=== PATIENT | male | born 1960 | race Caucasian/White ===

== ENCOUNTER 2017-05-20 10:17 | Emergency (ER) | payer OTHER ==
[2017-05-20 10:59] LABS: Urine Blood TRACE (NEG); Urine Glucose NEGATIVE (NEG); Urine Protein NEGATIVE (NEG); Urine Specific Gravity 1.025 (1.005-1.030)
--- NOTE | 2017-05-20 12:03 | ER ---
Nurse's Notes [facility] Name: Pancho Fischer Age: 57 yrs Sex: Male : 1960 Arrival Date: 05/20/2017 Time: 10:18 Bed 24 Private MD: Hemanth Santizo E Diagnosis: Allergic rhinitis, unspecified Presentation: 05/20 10:23 Presenting complaint: Patient states: I have been feeling fatigued, having watery eyes la1 recently and also bloated. All my joints ache. Transition of care: patient was not received from another setting of care. Onset of symptoms was May 20, 2017. Care prior to arrival: None. 10:23 Method Of Arrival: Ambulatory la1 10:23 Acuity: MELI 3 la1 Historical: - Allergies: 10:24 No Known Allergies; la1 - PMHx: 10:24 Asthma; Diverticulitis; la1 - Immunization history:: Adult Immunizations up to date. - Social history:: Smoking status: Patient/guardian denies using tobacco. Screenin:42 Abuse screen: Denies threats or abuse. Denies injuries from another. Nutritional aj screening: No deficits noted. Tuberculosis screening: No symptoms or risk factors identified. Fall Risk None identified. Assessment: 10:42 General: Appears in no apparent distress. comfortable, Behavior is calm, cooperative, aj appropriate for age. Pain: Denies pain. Neuro: Level of Consciousness is awake, alert, obeys commands, Oriented to person, place, time, situation. Respiratory: Reports cough that is Airway is patent Respiratory effort is even, unlabored, Respiratory pattern is regular, symmetrical. EENT: Reports nasal congestion nasal discharge. Derm: Skin is intact, is healthy with good turgor, Skin is pink, warm \T\ dry. normal. 12:07 Reassessment: Patient appears in no apparent distress at this time. No changes from aj previously documented assessment. Patient and/or family updated on plan of care and expected duration. Pain level reassessed. Patient is alert, oriented x 3, equal unlabored respirations, skin warm/dry/pink. Patient denies pain at this time. Vital Signs: 10:24 BP 117 / 80; Pulse 92; Resp 16; Temp 98.6(TE); Pulse Ox 95% on R/A; Weight 81.65 kg; la1 Height 5 ft. 6 in. (167.64 cm) (R); 12:07 BP 116 / 81; Pulse 89; Resp 17; Pulse Ox 99% on R/A; aj 10:24 Body Mass Index 29.05 (81.65 kg, 167.64 cm) la1 ED Course: 10:18 Patient arrived in ED. rg4 10:18 Hemanth Santizo MD is Private Physician. rg4 10:24 Triage completed. la1 10:24 Arm band placed on left wrist. la1 10:34 Karen Poole F[facility]-C [facility]. snw 10:34 William De Paz MD is Attending Physician. snw 10:35 Love Mclean, RN is Primary Nurse. aj 10:42 Patient has correct armband on for positive identification. aj 11:39 Throat Culture Sent. ms 12:03 Hemanth Santizo MD is Referral Physician. snw 12:07 No provider procedures requiring assistance completed. Patient did not have IV access aj during this emergency room visit. Administered Medications: No medications were administered Outcome: 12:03 Discharge ordered by . snw 12:07 Discharged to home ambulatory. aj 12:07 Condition: good 12:07 Discharge instructions given to patient, Instructed on discharge instructions, follow up and referral plans. medication usage, Demonstrated understanding of instructions, follow-up care, medications, Prescriptions given X 1. 12:08 Patient left the ED. aj Signatures: Love Mclean, RN Karen Bell FNP-C FNP-CsnSandra Moyer ms Vinod Flannery RN RN la1 Garcia, Rubi rg4
--- NOTE | 2017-05-20 12:03 | EDPHYS ---
Physician Documentation [facility] Name: Pancho Fischer Age: 57 yrs Sex: Male : 1960 Arrival Date: 05/20/2017 Time: 10:18 Bed 24 Private MD: Hemanth Santizo E ED Physician William De Paz HPI: 05/20 10:51 This 57 yrs old Male presents to ER via Ambulatory with complaints of snw Weakness. 10:51 The patient presents to the emergency department with malaise and fatigue. Onset: The snw symptoms/episode began/occurred gradually, 1 week(s) ago, and became persistent. Context: occurred at home, occurred while the patient was unknown. Associated signs and symptoms: Pertinent positives: allergies. Severity of symptoms: At their worst the symptoms were moderate. Patient's baseline: Neuro: alert and fully oriented, Motor: no deficits, Ambulation: walks without assistance, Speech: normal. Current symptoms: Currently, the patient is not experiencing any symptoms. The patient has experienced similar episodes in the past, had the flu twice last year and feels the same this week. The patient has not recently seen a physician, Dr. Santizo, pt currently out of [facility] and has been substituting Symbicort. Historical: - Allergies: 10:24 No Known Allergies; la1 - PMHx: 10:24 Asthma; Diverticulitis; la1 - Immunization history:: Adult Immunizations up to date. - Social history:: Smoking status: Patient/guardian denies using tobacco. ROS: 10:50 Constitutional: Negative for fever, chills, and weight loss, + run down feeling, snw weakness Eyes: Negative for injury, pain, redness, and discharge, ENT: Negative for injury, pain, + clear discharge Neck: Negative for injury, pain, and swelling, Cardiovascular: Negative for chest pain, palpitations, and edema, Respiratory: Negative for shortness of breath, cough, wheezing, and pleuritic chest pain, Abdomen/GI: Negative for abdominal pain, nausea, vomiting, diarrhea, and constipation, Back: Negative for injury and pain, : Negative for injury, bleeding, discharge, and swelling, MS/Extremity: Negative for injury and deformity, Skin: Negative for injury, rash, and discoloration, Neuro: Negative for headache, weakness, numbness, tingling, and seizure. Exam: 10:49 Constitutional: This is a well developed, well nourished patient who is awake, alert, snw and in no acute distress. Head/Face: Normocephalic, atraumatic. Eyes: Pupils equal round and reactive to light, extra-ocular motions intact. Lids and lashes normal. Conjunctiva and sclera are non-icteric and not injected. Cornea within normal limits. Periorbital areas with no swelling, redness, or edema. Neck: Trachea midline, no thyromegaly or masses palpated, and no cervical lymphadenopathy. Supple, full range of motion without nuchal rigidity, or vertebral point tenderness. No Meningismus. Chest/axilla: Normal chest wall appearance and motion. Nontender with no deformity. No lesions are appreciated. Cardiovascular: Regular rate and rhythm with a normal S1 and S2. No gallops, murmurs, or rubs. Normal PMI, no JVD. No pulse deficits. Respiratory: Lungs have equal breath sounds bilaterally, clear to auscultation and percussion. No rales, rhonchi or wheezes noted. No increased work of breathing, no retractions or nasal flaring. Abdomen/GI: Soft, non-tender, with normal bowel sounds. No distension or tympany. No guarding or rebound. No evidence of tenderness throughout. Back: No spinal tenderness. No costovertebral tenderness. Full range of motion. Skin: Warm, dry with normal turgor. Normal color with no rashes, no lesions, and no evidence of cellulitis. MS/ Extremity: Pulses equal, no cyanosis. Neurovascular intact. Full, normal range of motion. Neuro: Awake and alert, GCS 15, oriented to person, place, time, and situation. Cranial nerves II-XII grossly intact. Motor strength 5/5 in all extremities. Sensory grossly intact. Cerebellar exam normal. Normal gait. 10:49 ENT: External ear(s): are unremarkable, Ear canal(s): are normal, TM's: are normal, Nose: Nasal mucosa: erythematous, nasal drainage, that is moderate, and is seen coming from both nares, that is clear, Mouth: is normal, Posterior pharynx: erythema, that is mild, that is moderate, Voice: is normal. Vital Signs: 10:24 BP 117 / 80; Pulse 92; Resp 16; Temp 98.6(TE); Pulse Ox 95% on R/A; Weight 81.65 kg; la1 Height 5 ft. 6 in. (167.64 cm) (R); 12:07 BP 116 / 81; Pulse 89; Resp 17; Pulse Ox 99% on R/A; aj 10:24 Body Mass Index 29.05 (81.65 kg, 167.64 cm) la1 MDM: 10:34 Patient medically screened. snw 05/20 10:35 Order name: Strep; Complete Time: 11:50 snw 05/20 10:35 Order name: Flu; Complete Time: 11:50 snw 05/20 10:35 Order name: Urine Dipstick-Ancillary (obtain specimen); Complete Time: 10:43 snw 05/20 10:51 Order name: Urine Dipstick--Ancillary (enter results); Complete Time: 11:01 ms 05/20 11:35 Order name: Throat Culture EDMS Administered Medications: No medications were administered Disposition: 13:46 Co-signature as Attending Physician, William De Paz MD I agree with the assessment and kdr plan of care. Disposition: 05/20/17 12:03 Discharged to Home. Impression: Allergic rhinitis, unspecified. - Condition is Stable. - Discharge Instructions: Allergies, Hay Fever, Allergic Rhinitis. - Prescriptions for Zyrtec 10 mg Oral Tablet - take 1 tablet by ORAL route once daily As needed; 20 tablet. - Work release form, Medication Reconciliation Form, Thank You Letter, Antibiotic Education, Prescription Opioid Use form. - Follow up: Hemanth Santizo; When: 2 - 3 days; Reason: Recheck today's complaints, Continuance of care, Re-evaluation by your physician. Follow up: Emergency Department; When: As needed; Reason: Worsening of condition. Signatures: Dispatcher [employer] Love Dickinson, RN William Frazier MD MD kdr Therrien, Shelly, FARM RANCHER-C FARM RANCHER-[place] Vinod Flannery RN RN la1
[2017-05-20 12:13] VITALS: TEMP 98.6
[2017-05-20 12:14] VITALS: BP 116/81; O2SAT 99
== END 2017-05-20 12:08 | disposition home or self-care (01) ==
LOC: ER 10:17
DX: J30.9 Allergic rhinitis, unspecified (principal)
CPT/HCPCS: 81003; 87070; 87081; 87804; 99283

== ENCOUNTER 2017-05-24 15:14 | Emergency (ER) | payer OTHER ==
--- NOTE | 2017-05-24 16:30 | ER ---
Nurse's Notes [facility] Name: Pancho Fischer Age: 57 yrs Sex: Male : 1960 Arrival Date: 05/24/2017 Time: 15:17 Bed 12 Private MD: Hemanth Santizo E Diagnosis: Acute sinusitis Presentation: 05/24 15:22 Presenting complaint: Patient states: i was here Sunday, they said i had a flu; they hj sent me home meds; Sunday, went to doctor and sent me with antibiotics; my head hurts and my teeth hurts; reports fever;. Transition of care: patient was not received from another setting of care. Onset of symptoms was May 24, 2017. Care prior to arrival: None. 15:22 Method Of Arrival: Ambulatory 15:22 Acuity: MELI 4 hj Triage Assessment: 15:24 Headache History: Denies prior headaches. General: Appears. General: Appears in no hj apparent distress. uncomfortable, Behavior is calm, cooperative, appropriate for age. Pain: Complains of pain in head Pain currently is 10 out of 10 on a pain scale. Pain began 2-3 days ago. Also complains of. Neuro: Level of Consciousness is awake, alert, obeys commands, Oriented to person, place, time, situation, Appropriate for age. Historical: - Allergies: 15:24 No Known Drug Allergies; hj - Home Meds: 15:24 Breo Ellipta 100-25 mcg/dose inhalation dsdv 1 puff once daily [Active]; hj - PMHx: 15:24 Asthma; Diverticulitis; hj - PSHx: 15:24 None; hj - Immunization history:: Adult Immunizations unknown. - Social history:: Smoking status: Patient/guardian denies using tobacco, Patient/guardian denies using alcohol. Screenin:56 Abuse screen: Denies threats or abuse. Denies injuries from another. Nutritional hj screening: No deficits noted. Tuberculosis screening: No symptoms or risk factors identified. Fall Risk None identified. Assessment: 16:43 Reassessment: see boogie for assessment;. hj 17:05 Pain: Complains of pain in left frontal sinus. iw Vital Signs: 15:25 BP 137 / 82; Pulse 99; Resp 18; Temp 98.4(O); Pulse Ox 98% on R/A; Weight 80.74 kg; hj Height 5 ft. 6 in. (167.64 cm); 16:43 BP 135 / 76; Pulse 95; Resp 18; Temp 98.1; Pulse Ox 100% on R/A; hj 15:25 Body Mass Index 28.73 (80.74 kg, 167.64 cm) hj ED Course: 15:17 Patient arrived in ED. rg4 15:18 Hemanth Santizo MD is Private Physician. rg4 15:24 Triage completed. hj 15:25 Arm band placed on right wrist. hj 15:56 Raza Hill, RN is Primary Nurse. hj 15:56 Patient has correct armband on for positive identification. Bed in low position. Call light in reach. Side rails up X 1. 15:59 Sumit Meier NP is [facility]. pm1 15:59 Kye Aiken MD is Attending Physician. pm1 16:29 Hemanth Santizo MD is Referral Physician. pm1 16:29 Diane Toro MD is Referral Physician. pm1 17:04 No provider procedures requiring assistance completed. Patient did not have IV access iw during this emergency room visit. Administered Medications: 16:41 Drug: Rocephin (cefTRIAXone) 1 grams Route: IM; Site: left deltoid; tl3 16:44 Follow up: Response: No adverse reaction 16:41 Drug: Decadron 10 mg Route: IM; Site: right deltoid; tl3 16:44 Follow up: Response: No adverse reaction Outcome: 16:30 Discharge ordered by MD. pm1 17:04 Discharged to home ambulatory. iw 17:04 Condition: good 17:04 Discharge instructions given to patient, Instructed on discharge instructions, follow up and referral plans. medication usage, Demonstrated understanding of instructions, follow-up care, medications, Prescriptions given X 2. 17:05 Patient left the ED. iw Signatures: Ana Luisa Flores RN RN Raza Hill RN RN Sumit Meier NP [employer] pm1 Lizz Madrid rg4 Dulce Maria Rouse RN RN tl3 Corrections: (The following items were deleted from the chart) 15:26 15:22 Acuity: MELI 3 hj hj 15:27 15:25 Pulse 99bpm; Resp 18bpm; Pulse Ox 98% RA; Temp 98.4F Oral; 80.74 kg; Height 5 ft. hj 6 in.; BMI: 28.7; hj
--- NOTE | 2017-05-24 16:31 | EDPHYS ---
Physician Documentation [facility] Name: Pancho Fischer Age: 57 yrs Sex: Male : 1960 Arrival Date: 05/24/2017 Time: 15:17 Bed 12 Private MD: Hemanth Santizo E ED Physician Kye Aiken HPI: 05/24 16:19 This 57 yrs old Male presents to ER via Ambulatory with complaints of Sinus pm1 Pain. 16:20 Onset: The symptoms/episode began/occurred 1 week(s) ago. Severity of symptoms: in the pm1 emergency department the symptoms are actually worse. Modifying factors: The symptoms are alleviated by nothing, the symptoms are aggravated by nothing. Associated signs and symptoms: Pertinent positives: rhinorrhea, Pertinent negatives: fever, nausea, sore throat, vomiting. The patient has been recently seen by a physician: the patient's primary care provider, Dr. Sukhdev Paula 2 day(s) ago. Patient was seen here on 05/20 for the similar complaints and diagnosed with allergic rhinitis and prescribed Zyrtec-D. The patient did not fill the prescription and saw his PCP 2 days later. He was prescribed azithromycin and had his Breo refilled. He reports that he has not had much improvement in his symptoms except for last night. Patient reports a subjective fever. No chills. Patient has not taken any medications since Sunday except for azithromycin. No antipyretics have been taken during the course of his illness since he could not get a hold of his physician to ask if it is safe to take ibuprofen or Tylenol with azithromycin.. Historical: - Allergies: 15:24 No Known Drug Allergies; - Home Meds: 15:24 Breo Ellipta 100-25 mcg/dose inhalation dsdv 1 puff once daily [Active]; hj - PMHx: 15:24 Asthma; Diverticulitis; hj - PSHx: 15:24 None; hj - Immunization history:: Adult Immunizations unknown. - Social history:: Smoking status: Patient/guardian denies using tobacco, Patient/guardian denies using alcohol. ROS: 16:20 Constitutional: Negative for fever, chills, and weight loss, Eyes: Negative for injury, pm1 pain, redness, and discharge. 16:20 Neck: Negative for injury, pain, and swelling, Cardiovascular: Negative for chest pain, palpitations, and edema, Respiratory: Negative for shortness of breath, cough, wheezing, and pleuritic chest pain, Abdomen/GI: Negative for abdominal pain, nausea, vomiting, diarrhea, and constipation, Back: Negative for injury and pain, MS/Extremity: Negative for injury and deformity, Skin: Negative for injury, rash, and discoloration, Neuro: Negative for headache, weakness, numbness, tingling, and seizure. 16:20 ENT: Positive for ear pain, rhinorrhea, sinus congestion, sinus pain, Negative for sore throat, difficulty swallowing, difficulty handling secretions, hoarseness. Exam: 16:20 Constitutional: This is a well developed, well nourished patient who is awake, alert, pm1 and in no acute distress. Eyes: Pupils equal round and reactive to light, extra-ocular motions intact. Lids and lashes normal. Conjunctiva and sclera are non-icteric and not injected. Cornea within normal limits. Periorbital areas with no swelling, redness, or edema. ENT: Nares patent. No nasal discharge, no septal abnormalities noted. Tympanic membranes are normal and external auditory canals are clear. Oropharynx with no redness, swelling, or masses, exudates, or evidence of obstruction, uvula midline. Mucous membranes moist. Neck: Trachea midline, no thyromegaly or masses palpated, and no cervical lymphadenopathy. Supple, full range of motion without nuchal rigidity, or vertebral point tenderness. No Meningismus. Chest/axilla: Normal chest wall appearance and motion. Nontender with no deformity. No lesions are appreciated. Cardiovascular: Regular rate and rhythm with a normal S1 and S2. No gallops, murmurs, or rubs. Normal PMI, no JVD. No pulse deficits. Respiratory: Lungs have equal breath sounds bilaterally, clear to auscultation and percussion. No rales, rhonchi or wheezes noted. No increased work of breathing, no retractions or nasal flaring. 16:20 Abdomen/GI: Soft, non-tender, with normal bowel sounds. No distension or tympany. No guarding or rebound. No evidence of tenderness throughout. Back: No spinal tenderness. No costovertebral tenderness. Full range of motion. Skin: Warm, dry with normal turgor. Normal color with no rashes, no lesions, and no evidence of cellulitis. MS/ Extremity: Pulses equal, no cyanosis. Neurovascular intact. Full, normal range of motion. 16:20 Head/face: Sinus tenderness, that is moderate, is located over the left frontal sinus. 16:20 Neuro: Orientation: is normal, Cranial nerves: CN II- XII are normal as tested, Cerebellar function: normal finger to nose testing, Motor: is normal, moves all fours, strength is 5/5 in all extremities, Sensation: is normal, no obvious gross deficits, Gait: is steady, at a normal pace, without difficulty. Vital Signs: 15:25 BP 137 / 82; Pulse 99; Resp 18; Temp 98.4(O); Pulse Ox 98% on R/A; Weight 80.74 kg; hj Height 5 ft. 6 in. (167.64 cm); 16:43 BP 135 / 76; Pulse 95; Resp 18; Temp 98.1; Pulse Ox 100% on R/A; hj 15:25 Body Mass Index 28.73 (80.74 kg, 167.64 cm) hj MDM: 16:00 Patient medically screened. pm1 16:28 Data reviewed: vital signs. Data interpreted: Pulse oximetry: on room air is 98 %. pm1 Interpretation: normal. Counseling: I had a detailed discussion with the patient and/or guardian regarding: the historical points, exam findings, and any diagnostic results supporting the discharge/admit diagnosis, the need for outpatient follow up, an ENT specialist, PCP, to return to the emergency department if symptoms worsen or persist or if there are any questions or concerns that arise at home. Administered Medications: 16:41 Drug: Rocephin (cefTRIAXone) 1 grams Route: IM; Site: left deltoid; tl3 16:44 Follow up: Response: No adverse reaction hj 16:41 Drug: Decadron 10 mg Route: IM; Site: right deltoid; tl3 16:44 Follow up: Response: No adverse reaction Disposition: 05/25 10:25 Co-signature as Attending Physician, Kye Aiken MD I agree with the assessment and devin plan of care. Disposition: 05/24/17 16:30 Discharged to Home. Impression: Acute sinusitis. - Condition is Stable. - Discharge Instructions: Sinusitis, Adult. - Prescriptions for Zyrtec- D 5-120 mg Oral Tablet Sustained Release 12 hr - take 1 tablet by ORAL route every 12 hours As needed; 20 tablet. Medrol (Jeffery) 4 mg Oral Tablets, Dose Pack - take 1 tablet by ORAL route as directed - follow package instructions; 1 packet. - Work release form, Medication Reconciliation Form, Thank You Letter, Antibiotic Education form. - Follow up: Emergency Department; When: As needed; Reason: Worsening of condition. Follow up: Hemanth Santizo MD; When: 2 - 3 days; Reason: Recheck today's complaints, Continuance of care, Re-evaluation by your physician. Follow up: Diane Toro MD; When: 2 - 3 days; Reason: Recheck today's complaints, Continuance of care, Re-evaluation by your physician. - Problem is new. - Symptoms have improved. Signatures: Kye Aiken MD MD cha Williams, Irene, RN RN iw Raza Hill RN Sumit Sorto, YESSI [employer]CH[employer] pm1 Dulce Maria Rouse RN RN tl3
[2017-05-24] MEDS ORDERED: DEXAMETHASONE 4 MG/ML VIAL ONE (16:53)
[2017-05-24] MEDS ORDERED: LIDOCAINE 1% MPF 5 ML VIAL ONE (16:54)
[2017-05-24] MEDS ORDERED: CEFTRIAXONE 1000 MG/VIAL ONE (16:55)
[2017-05-24 17:10] VITALS: BP 135/76; TEMP 98.1; O2SAT 100
== END 2017-05-24 17:05 | disposition home or self-care (01) ==
LOC: ER 15:14
DX: J01.90 Acute sinusitis, unspecified (principal)
CPT/HCPCS: 96372; 99283

== ENCOUNTER 2019-02-07 20:42 | Inpatient (IN) | payer BC, OTHER ==
[2019-02-07 22:00] LABS: Urine Bacteria <20 /HPF (NONE SEEN); Urine Culture Reflex Order REFLEXED; Urine Mucus 1+ /HPF (NONE SEEN); Urine RBC >50 /HPF (NONE SEEN)
[2019-02-07 22:00] LABS: Urine Blood 2+ (NEG); Urine Glucose NEGATIVE (NEG); Urine Protein 1+ (NEG); Urine Specific Gravity 1.015 (1.005-1.030); Urine pH 5.5 (5.0-7.0)
[2019-02-07] MEDS ORDERED: METRONIDAZOLE 500mg IVPB 500 MG/100 ML BAG IV ONE (22:44)
[2019-02-07] MEDS ORDERED: CIPROFLOXACIN 400mg IV 400 MG/200 ML BAG IV ONE (22:44)
[2019-02-07] MEDS ORDERED: CEFTRIAXONE/SWI 1gm 1 GM/10 ML SYR ONE (23:07)
[2019-02-07 23:33] LABS: Absolute Lymphocytes (CBC) 2.9 K/uL (0.7-4.9); Basophils % 0.5 % (0-1.3); Lymphocytes % 18.4 % (15.3-44.8); MPV 6.9 fL (7.6-11.3); RBC Red Blood Cell Count 4.39 M/uL (4.33-5.43)
[2019-02-07 23:55] LABS: BUN Blood Urea Nitrogen 12 mg/dL (7-18); Bicarbonate 28 mmol/L (21-32); Glucose Level 112 mg/dL (74-106); Potassium 3.4 mmol/L (3.5-5.1); Sodium Level 138 mmol/L (136-145)
--- NOTE | 2019-02-08 00:23 | ER ---
Nurse's Notes [facility] Name: Pancho Fischer Age: 59 yrs Sex: Male : 1960 Arrival Date: 02/07/2019 Time: 20:45 Bed 20 [facility] MD: Diagnosis: Diverticulitis of intestine, part unspecified, without perforation or abscess without bleeding;Cystitis, unspecified with hematuria;Colovesicular Fistula Presentation: 02/07 20:51 Presenting complaint: Patient states: i have hematuria and painful urination for 2 mg2 days. i also have history off diverticulitis and my belly has been hurting and bloated too. Transition of care: patient was not received from another setting of care. Onset of symptoms was February 06, 2019. Risk Assessment: Do you want to hurt yourself or someone else? Patient reports no desire to harm self or others. Initial Sepsis Screen: Does the patient meet any 2 criteria? No. Patient's initial sepsis screen is negative. Does the patient have a suspected source of infection? No. Patient's initial sepsis screen is negative. Care prior to arrival: None. 20:51 Method Of Arrival: Ambulatory mg2 20:51 Acuity: MELI 3 mg2 Historical: - Allergies: 20:55 No Known Allergies; mg2 - Home Meds: 20:55 Breo Ellipta 100-25 mcg/dose inhalation dsdv 1 puff once daily [Active]; mg2 - PMHx: 20:55 Asthma; Diverticulitis; mg2 - PSHx: 20:55 None; mg2 - Immunization history:: Flu vaccine is not up to date. - Social history:: Smoking status: Patient/guardian denies using tobacco, Patient uses alcohol, but reports only rare drinking. Patient/guardian denies using street drugs, IV drugs. - Ebola Screening: : No symptoms or risks identified at this time. Screenin/21 01:08 Abuse screen: Denies threats or abuse. Nutritional screening: No deficits noted. ch2 Tuberculosis screening: No symptoms or risk factors identified. Fall Risk None identified. No fall in past 12 months (0 pts). No secondary diagnosis (0 pts). IV access (20 points). Ambulatory Aid- None/Bed Rest/Nurse Assist (0 pts). Gait- Normal/Bed Rest/Wheelchair (0 pts) Mental Status- Oriented to own ability (0 pts). 01:09 Sepsis Screening: . Infection: Patient has suspected or documented infection. SIRS - ch2 Systemic Inflammatory Response Syndrome: 2 or more indicates positive screen: [WBC greater than or equal to 12,000/mm3 or less than or equal to 4,000/mm3 or greater than 0.5 K/uL bands] Patient has a negative screen for severe sepsis based on SIRS criteria. Assessment: 02/07 21:04 General: Appears in no apparent distress. uncomfortable, well groomed, well developed, ch2 well nourished, Behavior is calm, cooperative, appropriate for age, Denies fever, fatigue, chills. 21:04 Pain: Complains of pain in penile Pain at worst was 10 out of 10 on a pain scale. ch2 Quality of pain is described as burning, Is intermittent, Aggravated by urination, straining. Neuro: No deficits noted. Level of Consciousness is awake, alert, obeys commands, Oriented to person, place, time, situation, Appropriate for age Gait is steady, Speech is normal, Pupils are PERRLA. Cardiovascular: Denies chest pain, fatigue, nausea, shortness of breath, Heart tones S1 S2 present Capillary refill < 3 seconds is brisk in bilateral fingers Patient's skin is warm and dry. Pulses are all present. are 3+ in right radial artery and left radial artery Rhythm is regular. Respiratory: No deficits noted. Breath sounds are clear bilaterally. Denies cough, shortness of breath at rest. GI: No deficits noted. No signs and/or symptoms were reported involving the gastrointestinal system. Abdomen is round non-distended. : Reports burning with urination, urinary frequency, slight hematuria 1-2 days ago. EENT: No deficits noted. No signs and/or symptoms were reported regarding the EENT system. Derm:. Musculoskeletal: No deficits noted. No signs and/or symptoms reported regarding the musculoskeletal system. 22:00 Reassessment: Patient appears in no apparent distress at this time. No changes from [facility] previously documented assessment. Patient and/or family updated on plan of care and expected duration. Pain level reassessed. Patient is alert, oriented x 3, equal unlabored respirations, skin warm/dry/pink. Patient states feeling better. Patient states symptoms have improved. 23:00 General: Appears in no apparent distress. comfortable, Behavior is calm, cooperative. ch2 23:00 Pain: Denies pain. ch2 23:12 Reassessment: Patient appears in no apparent distress at this time. No changes from ch2 previously documented assessment. Patient and/or family updated on plan of care and expected duration. Pain level reassessed. Patient is alert, oriented x 3, equal unlabored respirations, skin warm/dry/pink. Patient denies pain at this time. 02/08 00:11 General: Appears in no apparent distress. comfortable, Behavior is calm, cooperative, ch2 quiet. 00:11 Neuro: Level of Consciousness is alert, obeys commands. Cardiovascular: Rhythm is ch2 regular. Respiratory: Respiratory effort is even, unlabored, Respiratory pattern is regular, symmetrical. 01:15 Reassessment: Patient appears in no apparent distress at this time. No changes from ch2 previously documented assessment. Patient and/or family updated on plan of care and expected duration. Pain level reassessed. Patient is alert, oriented x 3, equal unlabored respirations, skin warm/dry/pink. 01:15 General: Appears in no apparent distress. comfortable, Behavior is calm, cooperative, ch2 with eyes closed, appears to be sleeping. 02:22 Reassessment: report called to Ap Welch RN. ch2 02:46 Reassessment: pt leaving ER to floor by me. ch2 Vital Signs: 02/07 20:54 BP 146 / 92; Pulse 97; Resp 18; Temp 99.6(O); Pulse Ox 97% on R/A; Weight 80.29 kg; mg2 Height 5 ft. 6 in. (167.64 cm); Pain 5/10; 21:04 BP 135 / 81; Pulse 69; Resp 14; Pulse Ox 98% ; ch2 21:30 BP 118 / 72; Pulse 86; Resp 16; Pulse Ox 97% ; ch2 22:30 BP 134 / 57; Pulse 81; Resp 14; Pulse Ox 96% ; ch2 23:13 BP 123 / 70; Pulse 75; Resp 14; Pulse Ox 97% ; ch2 23:30 BP 125 / 63; Pulse 75; Resp 14; Pulse Ox 92% ; ch2 02/08 00:00 BP 130 / 66; Pulse 75; Pulse Ox 94% ; ch2 00:30 BP 127 / 59; Pulse 71; Resp 16; Pulse Ox 94% ; ch2 01:00 BP 125 / 63; Pulse 64; Resp 14; Pulse Ox 95% ; ch2 01:30 BP 103 / 57; Pulse 69; Resp 16; Pulse Ox 93% ; ch2 12 20:54 Body Mass Index 28.57 (80.29 kg, 167.64 cm) mg2 ED Course: 02/07 20:45 Patient arrived in ED. cl3 20:54 Triage completed. mg2 20:54 Portia Y[facility] FNP-C [facility] kb 20:54 Kye Aiken MD is Attending Physician. kb 20:56 Arm band placed on. mg2 21:10 Patient has correct armband on for positive identification. Allergy band placed. Placed ch2 in gown. Bed in low position. Call light in reach. Side rails up X 1. 21:10 Pulse ox on. NIBP on. Door closed. Noise minimized. Lights dimmed. PO fluids given. ch2 22:01 CT Stone Protocol In Process Unspecified. EDMS 22:19 Kyrie De La Torre, SAMMI is Primary Nurse. rr5 23:00 Initial lab(s) drawn, by mo, sent to lab. ch2 23:00 Inserted saline lock: 22 gauge in left forearm, using aseptic technique. ch2 02/08 00:22 Nida Moya MD is Hospitalizing Provider. kb 01:23 Door closed. Noise minimized. Lights dimmed. Warm blanket given. Assisted to bathroom. ch2 02:24 No provider procedures requiring assistance completed. ch2 02:25 Patient admitted, IV remains in place. ch2 Administered Medications: 02/07 23:10 Drug: Rocephin 2 grams Route: IV; Rate: calculated rate; Site: left forearm; ch2 23:31 Follow up: Response: No adverse reaction; No change in condition ch2 23:12 Drug: Flagyl 500 mg Volume: 100 ml; Route: IVPB; Rate: 200 ml/hr; Infused Over: 30 ch2 mins; Site: left forearm; 23:32 Follow up: Response: No adverse reaction; No change in condition ch2 02/08 00:11 Drug: Cipro 400 mg Volume: 200 ml; Route: IVPB; Infused Over: 60 mins; Site: left ch2 femoral; 01:07 Follow up: Response: No adverse reaction ch2 02:26 Follow up: Response: No adverse reaction ch2 Outcome: 00:22 Decision to Hospitalize by Provider. kb 02:24 Admitted to Tele accompanied by tech, via stretcher, room 408. ch2 02:24 Condition: good 02:24 Instructed on the need for admit, Demonstrated understanding of instructions. 02:47 Patient left the ED. ch2 Signatures: Dispatcher [employer] EDPortia Coffman, CUMULATIVE EFFECTS ANALYST-C CUMULATIVE EFFECTS ANALYST-Rosalinda Alva, RN RN ch2 Rico Valencia, RN RN mg2 Kyrie De La Torre RN RN rr5 Ralph Andrade cl3
--- NOTE | 2019-02-08 00:24 | EDPHYS ---
Physician Documentation [facility] Name: Pancho Fischer Age: 59 yrs Sex: Male : 1960 Arrival Date: 02/07/2019 Time: 20:45 Bed 20 Private MD: ED Physician Kye Aiken HPI: 02/07 21:29 This 59 yrs old Male presents to ER via Ambulatory with complaints of Urinary kb Problem. 21:29 The patient presents with urinary symptoms, dysuria. Onset: The symptoms/episode kb began/occurred 3 week(s) ago, and became worse today. Modifying factors: The symptoms are alleviated by nothing, the symptoms are aggravated by urinating. Associated signs and symptoms: Pertinent positives: dysuria, Pertinent negatives: abdominal pain, constipation, diarrhea, fever, hematuria, nausea, vomiting. Severity of symptoms: At their worst the symptoms were moderate, in the emergency department the symptoms are unchanged. The patient has not experienced similar symptoms in the past. The patient has not recently seen a physician. Pt reports dysuria that started a couple of weeks ago. States it comes and goes, but today it was worse. States he had some blood in her urine last week, but that resolved. Reports some bloating and lower abd pain a week ago, but that has gone away as well. . Historical: - Allergies: 20:55 No Known Allergies; mg2 - Home Meds: 20:55 Breo Ellipta 100-25 mcg/dose inhalation dsdv 1 puff once daily [Active]; mg2 - PMHx: 20:55 Asthma; Diverticulitis; mg2 - PSHx: 20:55 None; mg2 - Immunization history:: Flu vaccine is not up to date. - Social history:: Smoking status: Patient/guardian denies using tobacco, Patient uses alcohol, but reports only rare drinking. Patient/guardian denies using street drugs, IV drugs. - Ebola Screening: : No symptoms or risks identified at this time. ROS: 21:27 Constitutional: Negative for fever, chills, and weight loss, ENT: Negative for injury, kb pain, and discharge, Neck: Negative for injury, pain, and swelling, Cardiovascular: Negative for chest pain, palpitations, and edema, Respiratory: Negative for shortness of breath, cough, wheezing, and pleuritic chest pain, Abdomen/GI: Negative for abdominal pain, nausea, vomiting, diarrhea, and constipation, Back: Negative for injury and pain, MS/Extremity: Negative for injury and deformity, Skin: Negative for injury, rash, and discoloration, Neuro: Negative for headache, weakness, numbness, tingling, and seizure. 21:27 : Positive for burning with urination. Exam: 21:29 Constitutional: This is a well developed, well nourished patient who is awake, alert, kb and in no acute distress. Head/Face: Normocephalic, atraumatic. ENT: Nares patent. No nasal discharge, no septal abnormalities noted. Tympanic membranes are normal and external auditory canals are clear. Oropharynx with no redness, swelling, or masses, exudates, or evidence of obstruction, uvula midline. Mucous membranes moist. Neck: Trachea midline, no thyromegaly or masses palpated, and no cervical lymphadenopathy. Supple, full range of motion without nuchal rigidity, or vertebral point tenderness. No Meningismus. Chest/axilla: Normal chest wall appearance and motion. Nontender with no deformity. No lesions are appreciated. Cardiovascular: Regular rate and rhythm with a normal S1 and S2. No gallops, murmurs, or rubs. Normal PMI, no JVD. No pulse deficits. Respiratory: Lungs have equal breath sounds bilaterally, clear to auscultation and percussion. No rales, rhonchi or wheezes noted. No increased work of breathing, no retractions or nasal flaring. Abdomen/GI: Soft, non-tender, with normal bowel sounds. No distension or tympany. No guarding or rebound. No evidence of tenderness throughout. Back: No spinal tenderness. No costovertebral tenderness. Full range of motion. Skin: Warm, dry with normal turgor. Normal color with no rashes, no lesions, and no evidence of cellulitis. MS/ Extremity: Pulses equal, no cyanosis. Neurovascular intact. Full, normal range of motion. Neuro: Awake and alert, GCS 15, oriented to person, place, time, and situation. Cranial nerves II-XII grossly intact. Motor strength 5/5 in all extremities. Sensory grossly intact. Cerebellar exam normal. Normal gait. Vital Signs: 20:54 BP 146 / 92; Pulse 97; Resp 18; Temp 99.6(O); Pulse Ox 97% on R/A; Weight 80.29 kg; mg2 Height 5 ft. 6 in. (167.64 cm); Pain 5/10; 21:04 BP 135 / 81; Pulse 69; Resp 14; Pulse Ox 98% ; ch2 21:30 BP 118 / 72; Pulse 86; Resp 16; Pulse Ox 97% ; ch2 22:30 BP 134 / 57; Pulse 81; Resp 14; Pulse Ox 96% ; ch2 23:13 BP 123 / 70; Pulse 75; Resp 14; Pulse Ox 97% ; ch2 23:30 BP 125 / 63; Pulse 75; Resp 14; Pulse Ox 92% ; ch2 02/08 00:00 BP 130 / 66; Pulse 75; Pulse Ox 94% ; ch2 00:30 BP 127 / 59; Pulse 71; Resp 16; Pulse Ox 94% ; ch2 01:00 BP 125 / 63; Pulse 64; Resp 14; Pulse Ox 95% ; ch2 01:30 BP 103 / 57; Pulse 69; Resp 16; Pulse Ox 93% ; ch2 02/07 20:54 Body Mass Index 28.57 (80.29 kg, 167.64 cm) mg2 MDM: 02/07 20:54 Patient medically screened. kb 21:27 Data reviewed: vital signs, nurses notes. Data interpreted: Pulse oximetry: on room air kb is 97 %. Interpretation: normal. 02/08 00:15 Counseling: I had a detailed discussion with the patient and/or guardian regarding: the kb historical points, exam findings, and any diagnostic results supporting the discharge/admit diagnosis, lab results, radiology results, the need for further work-up and treatment in the hospital. Physician consultation: Nida Moya MD was contacted at 00:16, regarding admission, to the medical/surgical unit. patient's condition, and will see patient in ED, shortly. 02/07 20:54 Order name: Urine Microscopic Only; Complete Time: 22:01 kb 02/07 21:09 Order name: Urine Dipstick--Ancillary (enter results); Complete Time: 22:01 mw2 02/07 22:02 Order name: Urine Culture EDMS 02/07 22:31 Order name: Basic Metabolic Panel; Complete Time: 23:57 kb 02/07 22:31 Order name: CBC with Diff; Complete Time: 00:07 kb 02/08 01:27 Order name: CBC with Automated Diff EDMS 02/08 01:27 Order name: CBC with Automated Diff EDMS 02/08 01:27 Order name: Comprehensive Metabolic Panel EDMS 02/08 01:27 Order name: Comprehensive Metabolic Panel EDMS 02/08 01:27 Order name: Magnesium EDMS 02/08 01:27 Order name: Magnesium EDMS 02/08 01:27 Order name: Phosphorus EDMS 02/08 01:27 Order name: Phosphorus EDMS 02/08 01:27 Order name: Protime (+INR) EDMS 02/07 20:54 Order name: Urine Dipstick-Ancillary (obtain specimen); Complete Time: 22:28 kb 02/07 21:28 Order name: CT Stone Protocol kb 02/07 22:31 Order name: IV Saline Lock; Complete Time: 23:16 kb 02/07 22:31 Order name: Labs collected and sent; Complete Time: 23:39 kb 02/08 01:27 Order name: CONS Physician Consult EDMS 02/08 01:27 Order name: NPO EDMS 02/08 01:27 Order name: Protime (+INR) EDMS 02/08 01:27 Order name: PTT, Activated Partial Thromb EDMS 02/08 01:27 Order name: PTT, Activated Partial Thromb EDMS 02/08 01:29 Order name: Urinalysis EDMS Administered Medications: 02/07 23:10 Drug: Rocephin 2 grams Route: IV; Rate: calculated rate; Site: left forearm; ch2 23:31 Follow up: Response: No adverse reaction; No change in condition ch2 23:12 Drug: Flagyl 500 mg Volume: 100 ml; Route: IVPB; Rate: 200 ml/hr; Infused Over: 30 ch2 mins; Site: left forearm; 23:32 Follow up: Response: No adverse reaction; No change in condition ch2 02/08 00:11 Drug: Cipro 400 mg Volume: 200 ml; Route: IVPB; Infused Over: 60 mins; Site: left ch2 femoral; 01:07 Follow up: Response: No adverse reaction ch2 02:26 Follow up: Response: No adverse reaction ch2 Disposition: 15:20 Co-signature as Attending Physician, Kye Aiken MD I agree with the assessment and devin plan of care. Disposition: 02/08/19 00:22 Hospitalization ordered by Nida Moya for Inpatient Admission. Preliminary diagnosis are Diverticulitis of intestine, part unspecified, without perforation or abscess without bleeding, Cystitis, unspecified with hematuria, Colovesicular Fistula. - Bed requested for Telemetry/MedSurg (Inpatient). - Status is Inpatient Admission. ch2 - Condition is Stable. - Problem is new. - Symptoms are unchanged. UTI on Admission? Yes Signatures: Dispatcher [employer] EDMS Portia Yi, SALES PROGRAM COORDINATOR-C SALES PROGRAM COORDINATOR-Ckb Kye Aiken MD MD cha Hanna, Candace, RN RN ch2 Owen Sanchez mw2 Rico Valencia, SAMMI RN mg2 Corrections: (The following items were deleted from the chart) : 00:22 Hospitalization Ordered by Nida Moya MD for Inpatient Admission. Preliminary mw2 diagnosis is Diverticulitis of intestine, part unspecified, without perforation or abscess without bleeding; Cystitis, unspecified with hematuria; Colovesicular Fistula. Bed requested for Telemetry/MedSurg (Inpatient). Status is Inpatient Admission. Condition is Stable. Problem is new. Symptoms are unchanged. UTI on Admission? Yes. kb 02:47 01:31 02/08/2019 00:22 Hospitalization Ordered by Nida Moya MD for Inpatient ch2 Admission. Preliminary diagnosis is Diverticulitis of intestine, part unspecified, without perforation or abscess without bleeding; Cystitis, unspecified with hematuria; Colovesicular Fistula. Bed requested for Telemetry/MedSurg (Inpatient). Status is Inpatient Admission. Condition is Stable. Problem is new. Symptoms are unchanged. UTI on Admission? Yes. mw2
[2019-02-08] MEDS ORDERED: ALPRAZOLAM 0.25 MG TABLET PO PRN (01:10)
[2019-02-08] MEDS ORDERED: ACETAMINOPHEN 500 MG TAB PO PRN (01:10)
[2019-02-08] MEDS ORDERED: ONDANSETRON 4 MG/2 ML VIAL IV PRN (01:10)
[2019-02-08 03:06] VITALS: BMI 28.6
[2019-02-08] MEDS ORDERED: LORazepam 2 MG/ML VIAL IV STA (03:17)
[2019-02-08] MEDS: NA CHLORIDE 0.9% 1,000 ML IV SCH ×2 (03:47→16:39)
[2019-02-08] MEDS: METRONIDAZOLE 500mg IVPB 500 MG/100 ML BAG IV SCH ×3 (06:27→16:52)
--- NOTE | 2019-02-08 08:11 | P.HP ---
Certification for Inpatient Patient admitted to: Inpatient With expected LOS: >2 Midnights Patient will require the following post-hospital care: None Practitioner: I am a practitioner with admitting privileges, knowledge of patient current condition, hospital course, and medical plan of care. Services: Services provided to patient in accordance with Admission requirements found in Title 42 Section 412.3 of the Code of Federal Regulations Patient History Date of Service: 02/08/19 Reason for admission: Diverticulitis w/ urinary tract infection History of Present Illness: Patient is a 59-year-old gentleman who came into the hospital with severe suprapubic tenderness. Patient has history of diverticulitis. He also has had some hematuria that he has noticed recently. He thought he had a bladder infection so we decided to go home. He was spending the evening with a friend at a local bar. The pain became so severe he decided to go to the hospital. They initially thought he had a kidney stone, but his workup revealed that he had diverticulitis and a urinary tract infection. He was also found to have a colovesical fistula. Spoke with surgery and recommendation was to admit to the hospital for further evaluation. Allergies No Known Drug Allergies Allergy (Verified 02/08/19 02:46) Unknown No Known Aller Allergy (Uncoded 09/14/16 07:55) Unknown No Known Allergies Allergy (Uncoded 04/08/16 21:20) Unknown Home Medications: NK [No Home Meds] 02/08/19 - Past Medical/Surgical History Diabetic: No -: Asthma -: Diverticulitis Past Surgical History: Patient denies surgical history - Family History Father Medical History: Stroke - Social History Smoking Status: Former smoker Alcohol use: Yes CD- Drugs: No Caffeine use: Yes Place of Residence: Home Review of Systems 10-point ROS is otherwise unremarkable Physical Examination - Vital Signs Temperature: 96.9 F Blood Pressure: 128/75 Pulse: 74 Respirations: 17 Pulse Ox (%): 98 - Physical Exam General: Alert, In no apparent distress, Oriented x3 HEENT: Atraumatic, PERRLA, Mucous membr. moist/pink, EOMI, Sclerae nonicteric Neck: Supple, 2+ carotid pulse no bruit, No LAD, Without JVD or thyroid abnormality Respiratory: Clear to auscultation bilaterally, Normal air movement Cardiovascular: Regular rate/rhythm, Normal S1 S2, No murmurs Gastrointestinal: Normal bowel sounds, Soft and benign, Non-distended, Tenderness Musculoskeletal: No clubbing, No swelling, No tenderness Integumentary: No rashes Neurological: Normal gait, Normal speech, Normal strength at 5/5 x4 extr, Normal tone, Sensation intact, Cranial nerves 3-12 intact, Normal affect Lymphatics: No axilla or inguinal lymphadenopathy - Studies Laboratory Data (last 24 hrs) 02/07/19 23:00: WBC 15.8 H, Hgb 12.9 L, Hct 38.0 L, Plt Count 320 02/07/19 23:00: Sodium 138, Potassium 3.4 L, BUN 12, Creatinine 0.82, Glucose 112 H Assessment & Plan - Problems (Diagnosis) (1) Diverticulitis of sigmoid colon Current Visit: Yes Status: Acute (2) Urinary tract infection Current Visit: Yes Status: Acute (3) Colovesical fistula Current Visit: Yes Status: Acute - Plan 1. Continue with IV hydration 2. Continue with IV antibiotics 3. Continue with pain control 4. NPO 5. General surgery consultation; outpatient workup will probably be recommended 6. Serial H&H, and we will monitor CBC, BMP, LFTs and lipase along with electrolytes. 7. GI and DVT prophylaxis Discharge Plan: Home Plan to discharge in: Greater than 2 days - Advance Directives Does patient have a Living Will: No Does patient have a Durable POA for Healthcare: No - Code Status/Comfort Care Code Status Assessed: Yes Code Status: Full Code Critical Care: No Time Spent Managing PTS Care (In Minutes): 45
[2019-02-08] MEDS: CEFTRIAXONE/SWI 1gm 1 GM/10 ML SYR IVP SCH ×3 (09:00→21:18)
[2019-02-08] MEDS ORDERED: CEFTRIAXONE 1 GM/NS 50 ML 1 GM/50 ML BAG IV SCH (09:00)
[2019-02-08] MEDS: ENOXAPARIN 40 MG/0.4 ML SQ SCH (09:12)
[2019-02-08] MEDS: CEFTRIAXONE/SWI 1gm 1 GM/10 ML SYR ONE ×2 (09:14→09:15)
--- NOTE | 2019-02-08 11:10 | P.PN ---
Date of Service: 02/08/19 Patient seen and examined. He denies any abdominal pain at the moment. He also denies any dysuria or hematuria. He is a feel. He is currently NPO Abdomen is benign on examination. UTI and suspected colovesicular fistula Continue current antibiotics Awaiting surgical consultation.
[2019-02-09] MEDS: METRONIDAZOLE 500mg IVPB 500 MG/100 ML BAG IV SCH ×3 (01:17→12:48)
[2019-02-09 05:00] LABS: Absolute Lymphocytes (CBC) 2.5 K/uL (0.7-4.9); Basophils % 0.8 % (0-1.3); Hematocrit 40.1 % (39.6-49.0); Lymphocytes % 31.1 % (15.3-44.8); MPV 6.9 fL (7.6-11.3); RBC Red Blood Cell Count 4.63 M/uL (4.33-5.43)
[2019-02-09 05:03] LABS: Protime INR 1.08
[2019-02-09 05:16] LABS: ALT/SGPT 22 U/L (12-78); AST/SGOT 9 U/L (15-37); Albumin 3.1 g/dL (3.4-5.0); Alkaline Phosphatase 79 U/L (45-117); BUN Blood Urea Nitrogen 7 mg/dL (7-18); Bicarbonate 26 mmol/L (21-32); Bilirubin Total 0.3 mg/dL (0.2-1.0); Glucose Level 102 mg/dL (74-106); Magnesium 2.3 mg/dL (1.8-2.4); Phosphorus 3.3 mg/dL (2.5-4.9); Potassium 3.7 mmol/L (3.5-5.1); Protein, Total 6.9 g/dL (6.4-8.2); Sodium Level 141 mmol/L (136-145)
[2019-02-09] MEDS ORDERED: POTASSIUM CL SA 10 MEQ TAB PO ONE (05:52)
[2019-02-09] MEDS: NA CHLORIDE 0.9% 1,000 ML IV SCH (06:16)
[2019-02-09] MEDS: CEFTRIAXONE/SWI 1gm 1 GM/10 ML SYR IVP SCH (08:41)
[2019-02-09] MEDS: ENOXAPARIN 40 MG/0.4 ML SQ SCH (08:41)
[2019-02-09] MEDS ORDERED: POTASSIUM 25 MEQ EFFERV TAB PO ONE (09:00)
[2019-02-09 11:19] VITALS: O2SAT 97
--- NOTE | 2019-02-09 11:52 | P.DS ---
Admission Date: 02/08/19 Discharge Date: 02/09/19 Disposition: ROUTINE DISCHARGE Discharge Condition: FAIR Reason for Admission: Diverticulitis w/ urinary tract infection Consultations: General Surgery-Dr. Shane. - Problems (1) Colovesical fistula Status: Acute (2) Diverticulitis of sigmoid colon Status: Acute (3) Urinary tract infection Status: Acute Brief History of Present Illness: 59-year-old gentleman presented to the ED with a complaint of suprapubic pain and hematuria. His urinalysis in the ED suggested the presence of UTI. CT abdomen and pelvis suggested possible colovesicular fistula. He had leukocytosis on presentation but no fever. Patient was admitted for further management. Hospital Course: He was treated with IV Rocephin and Flagyl. Leukocytosis resolved. The patient was seen and evaluated by general surgery Dr. Shane who recommended outpatient referral to colorectal surgery for further evaluation and possible surgery. This has been communicated to the patient. He is currently asymptomatic and requesting to go home. Urine culture is growing Gram negative rods. The patient is discharged with oral ciprofloxacin and Flagyl to continue treatment for UTI and diverticulitis. He will follow with Dr. Langley in the office for referral to colorectal surgery. Urine culture organism identification and sensitivity is pending to be followed for antibiotic adjustment. Vital Signs/Physical Exam: Temp Pulse Resp BP Pulse Ox 98.7 F 62 15 137/65 97 02/09/19 08:00 02/09/19 08:00 02/09/19 08:00 02/09/19 08:00 02/09/19 08:00 General: In no apparent distress HEENT: Mucous membr. moist/pink Neck: Supple Respiratory: Clear to auscultation bilaterally, Normal air movement Cardiovascular: No edema, Regular rate/rhythm, Normal S1 S2 Gastrointestinal: Normal bowel sounds, Soft and benign, Non-distended, No tenderness Laboratory Data at Discharge: WBC 8.0 K/uL (4.3-10.9) D 02/09/19 04:30 Hgb 13.2 g/dL (13.6-17.9) L 02/09/19 04:30 Hct 40.1 % (39.6-49.0) 02/09/19 04:30 Plt Count 303 K/uL (152-406) 02/09/19 04:30 PT 12.7 SECONDS (9.5-12.5) H 02/09/19 04:30 INR 1.08 02/09/19 04:30 APTT 28.7 SECONDS (24.3-36.9) 02/09/19 04:30 Sodium 141 mmol/L (136-145) 02/09/19 04:30 Potassium 3.7 mmol/L (3.5-5.1) 02/09/19 04:30 BUN 7 mg/dL (7-18) 02/09/19 04:30 Creatinine 0.83 mg/dL (0.55-1.3) 02/09/19 04:30 Glucose 102 mg/dL (74-106) 02/09/19 04:30 Phosphorus 3.3 mg/dL (2.5-4.9) 02/09/19 04:30 Magnesium 2.3 mg/dL (1.8-2.4) 02/09/19 04:30 Total Bilirubin 0.3 mg/dL (0.2-1.0) 02/09/19 04:30 AST 9 U/L (15-37) L 02/09/19 04:30 ALT 22 U/L (12-78) 02/09/19 04:30 Alkaline Phosphatase 79 U/L (45-117) 02/09/19 04:30 Home Medications: Ciprofloxacin HCl [Cipro 500 MG Tablet] 500 mg PO BID #26 tab 02/09/19 metroNIDAZOLE [Flagyl] 500 mg PO Q8H #39 tablet 02/09/19 Nitrofuran Macro [Macrobid] 100 mg PO BID 10 Days cap 02/12/19 New Medications: Ciprofloxacin HCl [Cipro 500 MG Tablet] 500 mg PO BID #26 tab metroNIDAZOLE [Flagyl] 500 mg PO Q8H #39 tablet Nitrofuran Macro [Macrobid] 100 mg PO BID 10 Days cap Diet: Regular Activity: Ad noe Followup: Saji Shane MD [ACTIVE - CAN ADMIT] - 1-2 Weeks (call to schedule appointment) Time spent managing pt's care (in minutes): 38
[2019-02-09 16:08] VITALS: BP 125/71; TEMP 98.9
--- NOTE | 2019-02-10 11:50 | RAD REPORT ---
EXAM DESCRIPTION: CT - Stone Protocol - 02/07/2019 11:17 pm CLINICAL HISTORY: The patient is 59 years old and is Male; HEMATURIA TECHNIQUE: Axial computed tomography images of the abdomen and pelvis without intravenous contrast. Sagittal and coronal reformatted images were created and reviewed. This CT exam was performed usi ng one or more of the following dose reduction techniques: automated exposure control, adjustment o f the mA and/or kV according to patient size, and/or use of iterative reconstruction technique. COMPARISON: No relevant prior studies available. FINDINGS: LUNG BASES: There is mild subsegmental atelectasis and/or scarring in bilateral lung bas es. ABDOMEN: LIVER: Homogeneous without focal mass. GALLBLADDER AND BILE DUCTS: No calcified stones. No ductal dilation. PANCREAS: Mild fatty infiltration of the pancreas is present. No ductal dilation. SPLEEN: Unremarkable. ADRENALS: Unremarkable. No mass. KIDNEYS AND URETERS: No obstructing stones. No hydronephrosis. No perinephric fluid. STOMACH AND BOWEL: The stomach is distended with food contents. The small bowel is normal in uche iber. Stool is present throughout colon. Scattered colonic diverticula are present. Surrounding infla mmatory stranding involving the sigmoid colon is noted. On coronal image 55, there is suggested fis tulous connection between the inflamed colon and dome of the bladder. PELVIS: APPENDIX: The appendix is normal in caliber without surrounding inflammation. BLADDER: Bladder wall thickening with surrounding inflammatory stranding is present. Small amoun t of air within the the bladder is present. REPRODUCTIVE: Unremarkable as visualized. ABDOMEN and PELVIS: INTRAPERITONEAL SPACE: Unremarkable. No free air. No significant fluid collection. BONES/JOINTS: No acute fracture. SOFT TISSUES: The soft tissues are normal. VASCULATURE: Unremarkable. No abdominal aortic aneurysm. LYMPH NODES: Unremarkable. No enlarged lymph nodes. IMPRESSION: 1. Findings consistent with acute sigmoid colon diverticulitis. 2. Findings suggest a colovesicular fistula as described with resultant cystitis. Electronically signed by: Dominique Parkinson MD 02/07/2019 10:15 PM [employer] Due to temporary technical issues with the PACS/Fluency reporting system, reports are being signed by the in house radiologist as a courtesy to ensure prompt reporting. The interpreting radiologist is f ully responsible for the content of the report.
== END 2019-02-09 16:45 | disposition home or self-care (01) | DRG 699 ==
LOC: ER 20:42 → ERHOLD 02-08 01:32 → 4TH 02-08 02:25
PROVIDERS: ADMIT Hospitalist; ATTEND Internal Medicine
DX: N32.1 Vesicointestinal fistula (principal); K57.32 Diverticulitis of large intestine without perforation or abscess without bleeding; N39.0 Urinary tract infection, site not specified
CPT/HCPCS: 36415; 74176; 76377; 80048; 80053; 81003; 81015; 83735; 84100; 85025; 85610; 85730; 87077; 87086; 87088; 87186; 96374; 96375; 99285; J0696; J0744; J1650; J7030

== ENCOUNTER 2019-03-01 20:47 | Emergency (ER) | payer BC ==
[2019-03-01] MEDS ORDERED: MORPHINE 2 MG/ML SYR ONE (21:21)
[2019-03-01] MEDS ORDERED: ONDANSETRON 4 MG/2 ML VIAL ONE (21:21)
[2019-03-01] MEDS ORDERED: NA CHLORIDE 0.9% 1,000 ML ONE (21:21)
[2019-03-01 21:37] LABS: Urine Bacteria >50 /HPF (NONE SEEN); Urine Culture Reflex Order REFLEXED
[2019-03-01 21:53] LABS: Urine Blood 2+ (NEG); Urine Glucose NEGATIVE (NEG); Urine Protein 1+ (NEG); Urine Specific Gravity 1.015 (1.005-1.030)
[2019-03-01 21:54] LABS: Absolute Lymphocytes (CBC) 2.4 K/uL (0.7-4.9); Basophils % 0.8 % (0-1.3); Hematocrit 40.6 % (39.6-49.0); Lymphocytes % 21.3 % (15.3-44.8); RBC Red Blood Cell Count 4.69 M/uL (4.33-5.43)
[2019-03-01 21:59] LABS: ALT/SGPT 43 U/L (12-78); AST/SGOT 20 U/L (15-37); Albumin 3.5 g/dL (3.4-5.0); Alkaline Phosphatase 88 U/L (45-117); BUN Blood Urea Nitrogen 11 mg/dL (7-18); Bicarbonate 27 mmol/L (21-32); Bilirubin Direct < 0.1 mg/dL (0-0.2); Bilirubin Total 0.4 mg/dL (0.2-1.0); Glucose Level 86 mg/dL (74-106); Lipase 64 U/L (73-393); Potassium 3.6 mmol/L (3.5-5.1); Protein, Total 7.6 g/dL (6.4-8.2); Sodium Level 138 mmol/L (136-145)
--- NOTE | 2019-03-02 00:17 | ER ---
Nurse's Notes [facility] Name: Pancho Fischer Age: 59 yrs Sex: Male : 1960 Arrival Date: 03/01/2019 Time: 20:50 Bed 5 Private MD: Diagnosis: Urinary tract infection, site not specified;Possible colovesicular fistula Presentation: 03/01 20:52 Presenting complaint: Patient states: "It started , I'm back to urinating with aj1 burning again and a little bit of blood and on top of that Sunday and Sunday I had a lot of sinus drainage and I took Nyquil, and I'm drinking plenty of fluids" Patient also reports suprapubic pain. Transition of care: patient was not received from another setting of care. Onset of symptoms was March 01, 2019. Risk Assessment: Do you want to hurt yourself or someone else? Patient reports no desire to harm self or others. Initial Sepsis Screen: Does the patient meet any 2 criteria? Yes Does the patient have a suspected source of infection? Yes: Dysuria/Frequency/Urgency/UTI. Care prior to arrival: None. 20:52 Method Of Arrival: Ambulatory aj1 20:52 Acuity: MELI 4 aj1 Triage Assessment: 20:55 General: Appears in no apparent distress. uncomfortable, Behavior is calm, cooperative, aj1 appropriate for age. Pain: Complains of pain in suprapubic area Pain currently is 5 out of 10 on a pain scale. Neuro: Level of Consciousness is awake, alert, obeys commands. Cardiovascular: Patient's skin is warm and dry. Respiratory: Airway is patent Respiratory effort is even, unlabored, Respiratory pattern is regular, symmetrical. GI: Reports lower abdominal pain. : Reports burning with urination. Historical: - Allergies: 20:55 No Known Allergies; aj1 - Home Meds: 20:55 Breo Ellipta 100-25 mcg/dose inhalation dsdv 1 puff once daily [Active]; aj1 - PMHx: 20:55 Asthma; Diverticulitis; aj1 - Immunization history:: Adult Immunizations up to date. - Social history:: Smoking status: Patient/guardian denies using tobacco. - Ebola Screening: : Patient denies travel to an Ebola-affected area in the 21 days before illness onset. Screenin:53 Abuse screen: Denies threats or abuse. Denies injuries from another. Nutritional lp1 screening: No deficits noted. Tuberculosis screening: No symptoms or risk factors identified. Fall Risk None identified. Assessment: 21:30 General: Appears in no apparent distress. Behavior is calm, cooperative, appropriate lp1 for age. Pain: Complains of pain in suprapubic area. Neuro: Level of Consciousness is awake, alert, obeys commands, Oriented to person, place, time, situation. Cardiovascular: Patient's skin is warm and dry. Respiratory: Respiratory effort is even, unlabored. GI: Abdomen is non-distended, Bowel sounds present X 4 quads. Abd is soft and non tender X 4 quads. : Reports burning with urination, pain in suprapubic area. EENT: No signs and/or symptoms were reported regarding the EENT system. Derm: Skin is pink, warm \\T\\ dry. Musculoskeletal: No deficits noted. 21:38 Reassessment: Patient is alert, oriented x 3, equal unlabored respirations, skin lp1 warm/dry/pink. Patient denies need for pain medication at this time. 21:38 Pain: Pain currently is 4 out of 10 on a pain scale. lp1 22:40 Reassessment: Patient appears in no apparent distress at this time. Patient states lp1 relief of pain from medication administered; Returned from CT. 23:45 Reassessment: Patient appears in no apparent distress at this time. Patient is alert, lp1 oriented x 3, equal unlabored respirations, skin warm/dry/pink. Patient states feeling better. Vital Signs: 20:55 BP 162 / 85; Pulse 88; Resp 18; Temp 98.4; Pulse Ox 97% on R/A; Weight 79.38 kg (R); aj1 Height 5 ft. 6 in. (167.64 cm) (R); Pain 5/10; 22:00 BP 131 / 74; Pulse 81; Resp 18; Pulse Ox 98% on R/A; lp1 23:00 BP 124 / 61; Pulse 76; Resp 18; Pulse Ox 95% on R/A; lp1 12 00:00 BP 123 / 70; Pulse 70; Resp 18; Pulse Ox 95% on R/A; lp1 00:43 BP 110 / 69; Pulse 78; Resp 18; Temp 97.7(O); Pulse Ox 98% on R/A; Pain 0/10; lp1 03/01 20:55 Body Mass Index 28.25 (79.38 kg, 167.64 cm) aj1 ED Course: 03/01 20:50 Patient arrived in ED. jg7 20:55 Triage completed. aj1 20:55 Arm band placed on Patient placed in an exam room. aj1 20:57 Saji Oglesby RN is Primary Nurse. jb4 20:57 Sumit Meier NP is PHCP. pm1 20:57 Kye Aiken MD is Attending Physician. pm1 21:00 Patient has correct armband on for positive identification. Placed in gown. Pulse ox lp1 on. NIBP on. 21:30 Initial lab(s) drawn, by me, sent to lab. Missed attempt(s): 20 gauge in left forearm. lp1 Inserted saline lock: 22 gauge in left antecubital area, using aseptic technique. Blood collected. 22:09 Mandi Brenner RN is Primary Nurse. lp1 22:45 CT Abd/Pelvis - IV Contrast Only In Process Unspecified. EDMS 03/02 00:14 Saji Shane MD is Referral Physician. pm1 00:43 No provider procedures requiring assistance completed. IV discontinued, No lp1 redness/swelling at site. Pressure dressing applied. Administered Medications: 03/01 21:30 Drug: NS 0.9% 1000 ml Route: IV; Rate: 1000 ml; Site: left antecubital; lp1 23:00 Follow up: IV Status: Completed infusion; IV Intake: 1000ml lp1 22:00 Drug: morphine 4 mg {Note: RASS 0.} Route: IVP; Site: left antecubital; lp1 22:51 Follow up: Response: Pain is decreased; RASS: Alert and Calm (0) lp1 22:00 Drug: Zofran 4 mg Route: IVP; Site: left antecubital; lp1 22:51 Follow up: Response: No adverse reaction lp1 03/02 00:28 Drug: Rocephin 1 grams Route: IV; Rate: calculated rate; Site: left antecubital; lp1 00:42 Follow up: IV Status: Completed infusion; IV Intake: 10ml lp1 Intake: 03/01 23:00 IV: 1000ml; Total: 1000ml. lp1 03/02 00:42 IV: 10ml; Total: 1010ml. lp1 Outcome: 00:15 Discharge ordered by . pm1 00:44 Discharged to home ambulatory. lp1 00:44 Condition: good 00:44 Discharge instructions given to patient, Instructed on discharge instructions, follow up and referral plans. medication usage, Demonstrated understanding of instructions, follow-up care, medications, Prescriptions given X 2. 00:44 Patient left the ED. lp1 Addendum: 03/06/2019 17:06 Addendum: Culture Results: Positive urine culture. No further action required. Bacteria s s sensitive to prescribed antibiotic. Signatures: Dispatcher [employer] EDMS Dior El RN RN aj1 Nuha Davies RN RN ss Mandi Brennre RN RN lp1 Sumit Meier, YESSI MUSIC HISTORIAN pm1 Saji Oglesby, SAMMI RN jb4 Belgica Durong7 Corrections: (The following items were deleted from the chart) 03/01 21:41 21:38 Reassessment: Patient is alert, oriented x 3, equal unlabored respirations, skin lp1 warm/dry/pink. Patient denies need for pain medication at this time lp1
--- NOTE | 2019-03-02 00:17 | EDPHYS ---
Physician Documentation [facility] Name: Pancho Fischer Age: 59 yrs Sex: Male : 1960 Arrival Date: 03/01/2019 Time: 20:50 Bed 5 Private MD: ED Physician Kye Aiken HPI: 03/01 21:26 This 59 yrs old Male presents to ER via Ambulatory with complaints of Urinary pm1 Frequency, Abdominal Pain, Pain With Urination. 21:26 The patient presents with urinary symptoms, dysuria, urinary frequency. Onset: The pm1 symptoms/episode began/occurred 2 day(s) ago. Modifying factors: The symptoms are alleviated by OTC meds, nsaids, the symptoms are aggravated by urinating. Associated signs and symptoms: Pertinent positives: abdominal pain, Pertinent negatives: constipation, diarrhea, fever, nausea, vomiting. Severity of symptoms: in the emergency department the symptoms are actually worse. The patient has experienced similar episodes in the past, a few times. The patient has been recently been admitted at [facility], was discharged a couple of weeks ago, UTI and diverticulitis. 21:26 Patient completed Macrobid of 10 days for UTI 5 days ago. pm1 Historical: - Allergies: 20:55 No Known Allergies; aj1 - Home Meds: 20:55 Breo Ellipta 100-25 mcg/dose inhalation dsdv 1 puff once daily [Active]; aj1 - PMHx: 20:55 Asthma; Diverticulitis; aj1 - Immunization history:: Adult Immunizations up to date. - Social history:: Smoking status: Patient/guardian denies using tobacco. - Ebola Screening: : Patient denies travel to an Ebola-affected area in the 21 days before illness onset. ROS: 21:26 Constitutional: Negative for fever, chills, and weight loss, Eyes: Negative for injury, pm1 pain, redness, and discharge. 21:26 Neck: Negative for injury, pain, and swelling, Cardiovascular: Negative for chest pain, palpitations, and edema, Respiratory: Negative for shortness of breath, cough, wheezing, and pleuritic chest pain. 21:26 Back: Negative for injury and pain. 21:26 MS/Extremity: Negative for injury and deformity, Skin: Negative for injury, rash, and discoloration, Neuro: Negative for headache, weakness, numbness, tingling, and seizure. 21:26 ENT: Positive for sinus congestion, Negative for sore throat. 21:26 Abdomen/GI: Positive for abdominal pain, of the suprapubic area, Negative for nausea, vomiting, and diarrhea, constipation. 21:26 : Positive for urinary frequency, burning with urination, Negative for flank pain. Exam: 21:26 Constitutional: This is a well developed, well nourished patient who is awake, alert, pm1 and in no acute distress. Head/Face: Normocephalic, atraumatic. Eyes: Pupils equal round and reactive to light, extra-ocular motions intact. Lids and lashes normal. Conjunctiva and sclera are non-icteric and not injected. Cornea within normal limits. Periorbital areas with no swelling, redness, or edema. ENT: Nares patent. No nasal discharge, no septal abnormalities noted. Tympanic membranes are normal and external auditory canals are clear. Oropharynx with no redness, swelling, or masses, exudates, or evidence of obstruction, uvula midline. Mucous membranes moist. Neck: Trachea midline, no thyromegaly or masses palpated, and no cervical lymphadenopathy. Supple, full range of motion without nuchal rigidity, or vertebral point tenderness. No Meningismus. Chest/axilla: Normal chest wall appearance and motion. Nontender with no deformity. No lesions are appreciated. Cardiovascular: Regular rate and rhythm with a normal S1 and S2. No gallops, murmurs, or rubs. Normal PMI, no JVD. No pulse deficits. Respiratory: Lungs have equal breath sounds bilaterally, clear to auscultation and percussion. No rales, rhonchi or wheezes noted. No increased work of breathing, no retractions or nasal flaring. 21:26 Back: No spinal tenderness. No costovertebral tenderness. Full range of motion. Skin: Warm, dry with normal turgor. Normal color with no rashes, no lesions, and no evidence of cellulitis. MS/ Extremity: Pulses equal, no cyanosis. Neurovascular intact. Full, normal range of motion. 21:26 Abdomen/GI: Inspection: abdomen appears normal, Palpation: soft, in all quadrants, mild abdominal tenderness, in the suprapubic area, mass, is not appreciated, rebound tenderness, is not appreciated. 21:26 Neuro: Orientation: is normal, Motor: is normal, moves all fours. Vital Signs: 20:55 BP 162 / 85; Pulse 88; Resp 18; Temp 98.4; Pulse Ox 97% on R/A; Weight 79.38 kg (R); aj1 Height 5 ft. 6 in. (167.64 cm) (R); Pain 5/10; 22:00 BP 131 / 74; Pulse 81; Resp 18; Pulse Ox 98% on R/A; lp1 23:00 BP 124 / 61; Pulse 76; Resp 18; Pulse Ox 95% on R/A; lp1 03/02 00:00 BP 123 / 70; Pulse 70; Resp 18; Pulse Ox 95% on R/A; lp1 00:43 BP 110 / 69; Pulse 78; Resp 18; Temp 97.7(O); Pulse Ox 98% on R/A; Pain 0/10; lp1 03/01 20:55 Body Mass Index 28.25 (79.38 kg, 167.64 cm) [facility] MDM: 03/01 21:04 Patient medically screened. [facility] 03/02 00:13 Data reviewed: vital signs. Data interpreted: Pulse oximetry: on room air is 98 %. pm1 Interpretation: normal. Counseling: I had a detailed discussion with the patient and/or guardian regarding: the historical points, exam findings, and any diagnostic results supporting the discharge/admit diagnosis, lab results, radiology results, the need for outpatient follow up, to return to the emergency department if symptoms worsen or persist or if there are any questions or concerns that arise at home. 03/01 21:16 Order name: Basic Metabolic Panel; Complete Time: 22:53 pm1 03/01 21:16 Order name: CBC with Diff; Complete Time: 22:53 pm1 03/01 21:16 Order name: Creatinine for Radiology; Complete Time: 22:53 pm1 03/01 21:16 Order name: Hepatic Function; Complete Time: 22:53 pm1 03/01 21:16 Order name: Lipase; Complete Time: 22:53 pm1 03/01 21:16 Order name: Urine Microscopic Only; Complete Time: 22:53 pm1 03/01 21:16 Order name: IV Saline Lock; Complete Time: 21:37 pm1 03/01 21:16 Order name: CT Abd/Pelvis - IV Contrast Only pm1 03/01 21:26 Order name: Urine Dipstick--Ancillary (enter results); Complete Time: 22:53 mw2 03/01 21:37 Order name: Urine Culture EDCA 03/01 21:16 Order name: Labs collected and sent; Complete Time: 21:37 pm1 03/01 21:16 Order name: Urine Dipstick-Ancillary (obtain specimen); Complete Time: 21:37 pm1 Administered Medications: 03/01 21:30 Drug: NS 0.9% 1000 ml Route: IV; Rate: 1000 ml; Site: left antecubital; lp1 23:00 Follow up: IV Status: Completed infusion; IV Intake: 1000ml lp1 22:00 Drug: morphine 4 mg {Note: RASS 0.} Route: IVP; Site: left antecubital; lp1 22:51 Follow up: Response: Pain is decreased; RASS: Alert and Calm (0) lp1 22:00 Drug: Zofran 4 mg Route: IVP; Site: left antecubital; lp1 22:51 Follow up: Response: No adverse reaction [facility] 03/02 00:28 Drug: Rocephin 1 grams Route: IV; Rate: calculated rate; Site: left antecubital; lp1 00:42 Follow up: IV Status: Completed infusion; IV Intake: 10ml lp1 Disposition: 03/02/19 00:15 Discharged to Home. Impression: Urinary tract infection, site not specified, Possible colovesicular fistula. - Condition is Stable. - Discharge Instructions: Urinary Tract Infection, Adult. - Prescriptions for cefpodoxime 200 mg Oral Tablet - take 1 tablet by ORAL route every 12 hours for 10 days with food; 20 tablet. Tylenol- Codeine #3 300-30 mg Oral Tablet - take 2 tablets by ORAL route every 6 hours As needed; 20 tablet. - Medication Reconciliation Form, Thank You Letter, Antibiotic Education, Prescription Opioid Use form. - Follow up: Saji Shane MD; When: 2 - 3 days; Reason: Recheck today's complaints, Continuance of care, Re-evaluation by your physician. - Problem is new. - Symptoms have improved. Addendum: 03/03/2019 08:15 Co-signature as Attending Physician, Kye Aiken MD I agree with the assessment and c ji plan of care. Signatures: Dispatcher [employer] EDDior Morales RN RN aj1 Kye Aiken MD MD cha Pena, Laura, RN RN lp1 Sumit Meier, YESSI PROPOSAL SPECIALIST pm1 Corrections: (The following items were deleted from the chart) 03/02 00:32 00:15 03/02/2019 00:15 Discharged to Home. Impression: Urinary tract infection, site pm1 not specified. Condition is Stable. Forms are Medication Reconciliation Form, Thank You Letter, Antibiotic Education, Prescription Opioid Use. Follow up: Saji Shane; When: 2 - 3 days; Reason: Recheck today's complaints, Continuance of care, Re-evaluation by your physician. Problem is new. Symptoms have improved. pm1 00:44 00:32 03/02/2019 00:15 Discharged to Home. Impression: Urinary tract infection, site lp1 not specified; Possible colovesicular fistula. Condition is Stable. Discharge Instructions: Urinary Tract Infection, Adult. Prescriptions for cefpodoxime 200 mg Oral Tablet - take 1 tablet by ORAL route every 12 hours for 10 days with food; 20 tablet, Tylenol-Codeine #3 300-30 mg Oral Tablet - take 2 tablets by ORAL route every 6 hours As needed; 20 tablet. and Forms are Medication Reconciliation Form, Thank You Letter, Antibiotic Education, Prescription Opioid Use. Follow up: Saji Shane; When: 2 - 3 days; Reason: Recheck today's complaints, Continuance of care, Re-evaluation by your physician. Problem is new. Symptoms have improved. pm1
[2019-03-02] MEDS ORDERED: CEFTRIAXONE/SWI 1gm 1 GM/10 ML SYR ONE (00:28)
[2019-03-02 02:39] VITALS: BP 110/69; TEMP 97.7; O2SAT 98
--- NOTE | 2019-03-03 11:07 | RAD REPORT ---
EXAM DESCRIPTION: Abdomen Pelvis W Contrast CLINICAL HISTORY: 59 years Male Dysuria;Abd pain COMPARISON: None TECHNIQUE: Images were obtained in axial, sagittal, and coronal planes. Intravenous contrast was adm inistered. This exam was performed according to our departmental dose-optimization program which includes use of Automated Exposure Control, adjustment of the mA and/or kV according to patient size and/or use of i terative reconstruction technique. FINDINGS: No abnormality involving the liver, spleen, pancreas, gallbladder, or adrenal glands bilat erally. No obstructing renal calcifications bilaterally. No hydronephrosis bilaterally. Appendix not well identified however no secondary signs for appendicitis. Abnormal mucosal thickening involving superior bladder with air within bladder wall. Adjacent sigmoid colon with associated mucosal thickening contiguous with the superior bladder wall. Moderate to marta ed diverticulosis distal left colon. Inflammatory process with developing colovesicular fistula not e xcluded. Finding is best identified on sagittal series 503 image 67 as well as axial series 501 image 66 and coronal series 502 image 52. Additional less pronounced mucosal thickening with indistinct ma rgins involving the bladder. Mildly enlarged prostate gland. Air is seen within the bladder. Mucosal thickening involving the left colon consistent with colitis. No bowel obstruction or intraper itoneal free air. No abnormality abdominal aorta or portal vein. No adenopathy. Atelectatic change left lower lobe. No acute osseous abnormality. IMPRESSION: Findings consistent with colitis and diverticulosis distal left colon. Abnormal mucosal thickening superior bladder with intramural air. The findings could be consistent with cystitis and p ossibly developing colovesicular fistula. Electronically signed by: Stephanie Baron MD 03/01/2019 11:17 PM [employer] Due to temporary technical issues with the PACS/Fluency reporting system, reports are being signed by the in house radiologist as a courtesy to ensure prompt reporting. The interpreting radiologist is f ully responsible for the content of the report.
== END 2019-03-02 00:44 | disposition home or self-care (01) ==
LOC: ER 20:47
DX: N39.0 Urinary tract infection, site not specified (principal)
CPT/HCPCS: 96361; 87088; 85025; 87086; 80048; 36415; 80076; 87077; 87186; 83690; 74177; 96375; 96374; 99284; Q9967; J2270; J0696; J7030; J2405; 81003; 81015

== ENCOUNTER 2019-03-27 19:32 | Emergency (ER) | payer BC ==
[2019-03-27 20:23] LABS: Urine Blood 2+ (NEG); Urine Glucose NEGATIVE (NEG); Urine Protein TRACE (NEG); Urine Specific Gravity 1.015 (1.005-1.030)
[2019-03-27 20:45] LABS: Urine Bacteria 20-50 /HPF (NONE SEEN); Urine Culture Reflex Order REFLEXED; Urine Mucus 1+ /HPF (NONE SEEN)
[2019-03-27 20:59] LABS: Absolute Lymphocytes (CBC) 2.1 K/uL (0.7-4.9); Basophils % 0.7 % (0-1.3); Hematocrit 44.6 % (39.6-49.0); Lymphocytes % 18.9 % (15.3-44.8); MPV 6.7 fL (7.6-11.3); RBC Red Blood Cell Count 5.05 M/uL (4.33-5.43)
[2019-03-27 21:18] LABS: Albumin 3.5 g/dL (3.4-5.0); Bilirubin Direct 0.2 mg/dL (0-0.2); Bilirubin Total 0.5 mg/dL (0.2-1.0); Potassium 3.6 mmol/L (3.5-5.1); Protein, Total 8.1 g/dL (6.4-8.2)
--- NOTE | 2019-03-27 22:06 | ER ---
Nurse's Notes [facility] Name: Pancho Fischer Age: 59 yrs Sex: Male : 1960 Arrival Date: 03/27/2019 Time: 19:35 Bed 19 Private MD: Diagnosis: Urinary tract infection, site not specified Presentation: 03/27 20:01 Presenting complaint: Patient states: He has been seen in the ER for the last couple of weeks because of UTI, was given prescription and was discharged. Pt states he believed the UTI has come back because he has burning sensation again when he urinates. Pt also C/O chills. Transition of care: patient was not received from another setting of care. Onset of symptoms was March 27, 2019. Risk Assessment: Do you want to hurt yourself or someone else? Patient reports no desire to harm self or others. Initial Sepsis Screen: Does the patient meet any 2 criteria? No. Patient's initial sepsis screen is negative. Does the patient have a suspected source of infection? Yes: Dysuria/Frequency/Urgency/UTI. Care prior to arrival: None. 20:01 Method Of Arrival: Ambulatory 20:01 Acuity: MELI 3 Historical: - Allergies: 20:03 No Known Allergies; - Home Meds: 20:03 Breo Ellipta 100-25 mcg/dose inhalation dsdv 1 puff once daily [Active]; - PMHx: 20:03 Asthma; Diverticulitis; - PSHx: 20:03 None; - Immunization history:: Adult Immunizations up to date, Flu vaccine is not up to date. - Coronavirus screen:: The patient has NOT traveled to [place], [place], or [place] in the past 14 days. - Social history:: Smoking status: Patient/guardian denies using. - Ebola Screening: : Patient negative for fever greater than or equal to 101.5 degrees Fahrenheit, and additional compatible Ebola Virus Disease symptoms Patient denies exposure to infectious person. Screenin:04 Abuse screen: Denies threats or abuse. Denies injuries from another. Nutritional screening: No deficits noted. Tuberculosis screening: No symptoms or risk factors identified. Fall Risk None identified. Assessment: 20:04 General: Appears in no apparent distress. Behavior is calm, cooperative, appropriate for age. Pain: Complains of pain in pain with urination Quality of pain is described as burning. Neuro: Level of Consciousness is awake, alert, obeys commands, Oriented to person, place, time, situation, Appropriate for age. Cardiovascular: Capillary refill. Respiratory: Airway is patent Respiratory effort is even, unlabored, Respiratory pattern is regular, symmetrical. GI: Abdomen is flat, non-distended, Abd is soft and non tender X 4 quads. : Reports burning with urination. EENT: No signs and/or symptoms were reported regarding the EENT system. Derm: Skin is intact, is healthy with good turgor, Skin is pink, warm \T\ dry. normal. Musculoskeletal: Circulation, motion, and sensation intact. 21:30 Reassessment: Patient appears in no apparent distress at this time. No changes from previously documented assessment. Patient and/or family updated on plan of care and expected duration. Pain level reassessed. Patient is alert, oriented x 3, equal unlabored respirations, skin warm/dry/pink. Vital Signs: 20:03 BP 130 / 74; Pulse 89; Resp 18; Temp 98.2; Pulse Ox 97% ; Weight 79.38 kg; Height 5 ft. 6 in. (167.64 cm); Pain 4/10; 21:30 BP 128 / 68; Pulse 76; Resp 18; Pulse Ox 98% on R/A; wh 20:03 Body Mass Index 28.25 (79.38 kg, 167.64 cm) ED Course: 19:35 Patient arrived in ED. jg7 19:53 Vinod Flannery FNP-C is [facility]. la1 19:53 Kye Aiken MD is Attending Physician. la1 19:59 Florencia Collins is Primary Nurse. 20:03 Triage completed. 20:05 Arm band placed on right wrist. 20:05 Patient has correct armband on for positive identification. Bed in low position. Call light in reach. Side rails up X 1. Pulse ox on. NIBP on. 20:11 Urine collected: clean catch specimen, clear, sediment noted. Patient maintains SpO2 jp3 saturation greater than 95% on room air. 20:30 Inserted saline lock: 22 gauge in right antecubital area, using aseptic technique. Blood collected. By Fishki. 22:22 No provider procedures requiring assistance completed. IV discontinued, intact, bleeding controlled, No redness/swelling at site. Administered Medications: 22:14 Drug: Augmentin 875 mg Route: PO; 22:24 Follow up: Response: No adverse reaction Outcome: 22:05 Discharge ordered by MD. segal 22:23 Discharged to home ambulatory. 22:23 Condition: stable 22:23 Discharge instructions given to patient, Instructed on discharge instructions, follow up and referral plans. medication usage, POC Demonstrated understanding of instructions, follow-up care, medications, POC Prescriptions given X 1. 22:24 Patient left the ED. Signatures: Vinod Flannery, JOVANY-C INTERACTIVE MEDIA SPECIALIST-Cla1 Florencia Collins Vinod Austin jp3 Belgica Duron
--- NOTE | 2019-03-27 22:07 | EDPHYS ---
Physician Documentation [facility] Name: Pancho Fischer Age: 59 yrs Sex: Male : 1960 Arrival Date: 03/27/2019 Time: 19:35 Bed 19 Private MD: ED Physician Kye Aiken HPI: 03/27 20:26 This 59 yrs old Male presents to ER via Ambulatory with complaints of Pain la1 With Urination. 20:26 The patient presents with urinary symptoms, dysuria. Onset: The symptoms/episode la1 began/occurred 2 day(s) ago. Modifying factors: The symptoms are alleviated by nothing, the symptoms are aggravated by urinating. Associated signs and symptoms: Pertinent positives: chills. Severity of symptoms: At their worst the symptoms were moderate. The patient has experienced a previous episode. The patient has been recently seen at the [facility], last week, for similar complaints was given a prescription for antibiotics. Historical: - Allergies: 20:03 No Known Allergies; - Home Meds: 20:03 Breo Ellipta 100-25 mcg/dose inhalation dsdv 1 puff once daily [Active]; - PMHx: 20:03 Asthma; Diverticulitis; [facility] PSHx: 20:03 None; - Immunization history:: Adult Immunizations up to date, Flu vaccine is not up to date. - Coronavirus screen:: The patient has NOT traveled to [place], [place], or [place] in the past 14 days. - Social history:: Smoking status: Patient/guardian denies using. - Ebola Screening: : Patient negative for fever greater than or equal to 101.5 degrees Fahrenheit, and additional compatible Ebola Virus Disease symptoms Patient denies exposure to infectious person. ROS: 20:27 Constitutional: + chills, subjective fever la1 20:27 Eyes: Negative for injury, pain, redness, and discharge, ENT: Negative for injury, pain, and discharge, Neck: Negative for injury, pain, and swelling, Cardiovascular: Negative for chest pain, palpitations, and edema, Respiratory: Negative for shortness of breath, cough, wheezing, and pleuritic chest pain, Abdomen/GI: Negative for abdominal pain, nausea, vomiting, diarrhea, and constipation, Back: Negative for injury and pain. 20:27 MS/Extremity: Negative for injury and deformity, Skin: Negative for injury, rash, and discoloration, Neuro: Negative for headache, weakness, numbness, tingling, and seizure, Endocrine: Negative for neck swelling, polydipsia, polyuria, polyphagia, and marked weight changes. 20:27 : Positive for urinary symptoms. Exam: 20:28 Constitutional: This is a well developed, well nourished patient who is awake, alert, la1 and in no acute distress. Head/Face: Normocephalic, atraumatic. Eyes: Pupils equal round and reactive to light, extra-ocular motions intact. Lids and lashes normal. Conjunctiva and sclera are non-icteric and not injected. Cornea within normal limits. Periorbital areas with no swelling, redness, or edema. ENT: Mucous membranes moist. Neck: Trachea midline, No Meningismus. Chest/axilla: Normal chest wall appearance and motion. Nontender with no deformity. No lesions are appreciated. Cardiovascular: Regular rate and rhythm with a normal S1 and S2. No gallops, murmurs, or rubs. Normal PMI, no JVD. No pulse deficits. Respiratory: Lungs have equal breath sounds bilaterally, clear to auscultation and percussion. Abdomen/GI: Soft, non-tender, with normal bowel sounds. No distension or tympany. No guarding or rebound. No evidence of tenderness throughout. MS/ Extremity: Pulses equal, no cyanosis. Neurovascular intact. Full, normal range of motion. Neuro: Awake and alert, GCS 15, oriented to person, place, time, and situation. Cranial nerves II-XII grossly intact. Motor strength 5/5 in all extremities. Sensory grossly intact. Cerebellar exam normal. Normal gait. Vital Signs: 20:03 BP 130 / 74; Pulse 89; Resp 18; Temp 98.2; Pulse Ox 97% ; Weight 79.38 kg; Height 5 ft. wh 6 in. (167.64 cm); Pain 4/10; 21:30 BP 128 / 68; Pulse 76; Resp 18; Pulse Ox 98% on R/A; wh 20:03 Body Mass Index 28.25 (79.38 kg, 167.64 cm) MDM: 19:53 Patient medically screened. la1 22:03 Data reviewed: vital signs, nurses notes, lab test result(s), I have discussed the la1 patient's presentation/case with the attending Emergency Department Physician; and as a result, I will discharge patient. Data interpreted: Pulse oximetry: on room air. Counseling: I had a detailed discussion with the patient and/or guardian regarding: the historical points, exam findings, and any diagnostic results supporting the discharge/admit diagnosis, lab results, the need for outpatient follow up, a general surgeon, to return to the emergency department if symptoms worsen or persist or if there are any questions or concerns that arise at home. Special discussion: Based on the history and exam findings, there is no indication for further emergent testing or inpatient evaluation. I discussed with the patient/guardian the need to see the colorectal surgeon for further evaluation of the symptoms. 03/27 20:00 Order name: Urine Microscopic Only 03/27 20:12 Order name: Urine Dipstick--Ancillary (enter results) [facility] 03/27 20:22 Order name: Basic Metabolic Panel [facility] 03/27 20:22 Order name: CBC with Diff [facility] 03/27 20:22 Order name: Hepatic Function [facility] 03/27 20:22 Order name: Lipase [facility] 03/27 20:22 Order name: Flu [facility] 03/27 20:24 Order name: Urine Dipstick-Ancillary; Complete Time: 21:02 [facility] 03/27 20:48 Order name: Urine Microscopic Only; Complete Time: 21:02 [facility] 03/27 21:01 Order name: CBC with Automated Diff; Complete Time: 21:02 [facility] 03/27 21:18 Order name: Basic Metabolic Panel; Complete Time: 21:36 [facility] 03/27 21:18 Order name: Liver (Hepatic) Function; Complete Time: 21:36 [facility] 03/27 21:18 Order name: Lipase; Complete Time: 21:36 [facility] 03/27 21:33 Order name: Influenza Screen (A ; Complete Time: 21:36 [facility] 03/27 20:00 Order name: Urine Dipstick-Ancillary (obtain specimen); Complete Time: 20:06 03/27 20:22 Order name: IV Saline Lock; Complete Time: 20:51 [facility] 03/27 20:22 Order name: Labs collected and sent; Complete Time: 20:51 [facility] Administered Medications: 22:14 Drug: Augmentin 875 mg Route: PO; 22:24 Follow up: Response: No adverse reaction Disposition: 03/28 09:23 Co-signature as Attending Physician, Kye Aiken MD I agree with the assessment and devin plan of care. Disposition: 03/27/19 22:05 Discharged to Home. Impression: Urinary tract infection, site not specified. - Condition is Stable. - Discharge Instructions: Dysuria, Urinary Tract Infection, Adult, Urinary Tract Infection, Adult, [id number], Antibiotic Medicine, Adult. - Prescriptions for Augmentin 875- 125 mg Oral Tablet - take 1 tablet by ORAL route every 12 hours for 10 days; 20 tablet. - Medication Reconciliation Form, Thank You Letter, Antibiotic Education form. - Follow up: Private Physician; When: 2 - 3 days; Reason: Recheck today's complaints, Re-evaluation by your physician. - Problem is new. - Symptoms have improved. Signatures: Dispatcher [employer] EDMD Kye Aiken MD MD cha Attema, Lee, SENIOR COMMISSIONS ANALYST-C SENIOR COMMISSIONS ANALYST-Cla1 Florencia Collins Raymond, RN RN [id number] Corrections: (The following items were deleted from the chart) 03/27 22:24 22:05 03/27/2019 22:05 Discharged to Home. Impression: Urinary tract infection, site wh not specified. Condition is Stable. Forms are Medication Reconciliation Form, Thank You Letter, Antibiotic Education, Prescription Opioid Use. Follow up: Private Physician; When: 2 - 3 days; Reason: Recheck today's complaints, Re-evaluation by your physician. Problem is new. Symptoms have improved. la1
[2019-03-27] MEDS ORDERED: AMOX/K CLAV 875 MG TAB ONE (22:15)
[2019-03-27 22:33] VITALS: TEMP 98.2
[2019-03-27 22:35] VITALS: BP 128/68; O2SAT 98
== END 2019-03-27 22:24 | disposition home or self-care (01) ==
LOC: ER 19:32
DX: N39.0 Urinary tract infection, site not specified (principal); J45.909 Unspecified asthma, uncomplicated
CPT/HCPCS: 36415; 80048; 80076; 81003; 81015; 83690; 85025; 87086; 87088; 87804; 99284

== ENCOUNTER 2020-01-05 11:44 | Emergency (ER) | payer BC ==
[2020-01-05] MEDS ORDERED: NA CHLORIDE 0.9% 1,000 ML ONE (13:49)
[2020-01-05 14:02] LABS: Absolute Lymphocytes (CBC) 1.7 K/uL (0.7-4.9); Basophils % 0.3 % (0-1.3); Hematocrit 43.8 % (39.6-49.0); Lymphocytes % 12.8 % (15.3-44.8); RBC Red Blood Cell Count 4.95 M/uL (4.33-5.43)
[2020-01-05 14:19] LABS: Albumin 3.8 g/dL (3.4-5.0); Bilirubin Direct 0.2 mg/dL (0-0.2); Bilirubin Total 0.8 mg/dL (0.2-1.0); Potassium 3.6 mmol/L (3.5-5.1); Protein, Total 9.3 g/dL (6.4-8.2)
--- NOTE | 2020-01-05 14:52 | RAD REPORT ---
EXAM DESCRIPTION: CTAbdomen Pelvis W Contrast - 01/05/2020 2:20 pm CLINICAL HISTORY: Abdominal pain. abdominal pain, diarrhea COMPARISON: Abdomen Pelvis W Contrast dated 03/01/2019; CT ABD PELVIS W CONTRAST dated 02/01/2015 TECHNIQUE: Biphasic CT imaging of the abdomen and pelvis was performed with 100 ml non-ionic IV cont rast. All CT scans are performed using dose optimization technique as appropriate and may include automated exposure control or mA/KV adjustment according to patient size. FINDINGS: Mild linear subsegmental atelectasis is seen in the left lung base posteriorly. The liver, spleen, pancreas, adrenal glands and right kidney are within normal limits. Mild edema is present involving the left kidney suggesting mild left-sided pyelonephritis. No bowel obstruction, free air, free fluid or abscess. Sigmoid diverticulosis coli is seen with mild inflammation surrounding sigmoid colon. The appendix is normal. No evidence of significant lymphaden opathy. No suspicious bony findings. IMPRESSION: Mild left-sided pyelonephritis suspected. Mild sigmoid acute diverticulitis is suspected without abscess or complication. After appropriate the rapy, consider followup colonoscopy.
--- NOTE | 2020-01-05 15:27 | ER ---
Nurse's Notes [facility] Name: Pancho Fischer Age: 59 yrs Sex: Male : 1960 Arrival Date: 01/05/2020 Time: 11:47 Bed 15 Private MD: Hemanth Santizo E Diagnosis: Diverticulitis;Left Pyelonephritis Presentation: 01/04 11:54 Chief complaint: Patient states: Diarrhea since last Sunday. Abdominal pain began ll1 Sunday. No N/V. + sweating at home like he has fever. + fatigue. Coronavirus screen: Client denies travel out of the [place] in the last 14 days. diarrhea, nausea, Client presents with at least one sign or symptom that may indicate coronavirus-19. Standard/surgical mask placed on the client. Ebola Screen: Patient denies travel to an Ebola-affected area in the 21 days before illness onset. Initial Sepsis Screen: Does the patient meet any 2 criteria? HR > 90 bpm. Initial Sepsis Screen: Does the patient meet any 2 criteria? No. Patient's initial sepsis screen is negative. Does the patient have a suspected source of infection? Yes: Acute abdominal pain. Risk Assessment: Do you want to hurt yourself or someone else? Patient reports no desire to harm self or others. Onset of symptoms was December 31, 2019. 11:54 Method Of Arrival: Ambulatory ll1 11:54 Acuity: MELI 3 ll1 Historical: - Allergies: 11:59 No Known Drug Allergies; ll1 - Home Meds: 13:26 Breo Ellipta 100-25 mcg/dose inhalation dsdv 1 puff once daily [Active]; zb - PMHx: 11:59 Asthma; Diverticulitis; High Cholesterol; sinus infection; ll1 - PSHx: 11:59 None; ll1 - Immunization history:: Flu vaccine is not up to date. - Social history:: Smoking status: Patient reports the use of cigarette tobacco products, denies chronic smoking, but will smoke occasionally. Screenin:21 Abuse screen: Denies threats or abuse. Denies injuries from another. Nutritional zb screening: No deficits noted. Tuberculosis screening: No symptoms or risk factors identified. Fall Risk None identified. No fall in past 12 months (0 pts). No secondary diagnosis (0 pts). IV access (20 points). Ambulatory Aid- None/Bed Rest/Nurse Assist (0 pts). Gait- Normal/Bed Rest/Wheelchair (0 pts) Mental Status- Oriented to own ability (0 pts). Total Garces Fall Scale indicates No Risk (0-24 pts). Assessment: 13:10 General: Appears in no apparent distress. obese, Behavior is calm, cooperative, zb appropriate for age, Reports fever for 2-3 days, feeling ill for 2-3 days. Pain: Complains of pain in abdomen Pain does not radiate. Pain currently is 4 out of 10 on a pain scale. Quality of pain is described as aching, crampy. Neuro: Level of Consciousness is awake, alert, obeys commands, Oriented to person, place, time. Cardiovascular: Reports None Capillary refill < 3 seconds in bilateral fingers. Respiratory: Airway is patent Respiratory effort is even, unlabored. GI: Abdomen is distended, obese, Last BM was January 05, 2020. Abd is non tender X 4 quads. : No signs and/or symptoms were reported regarding the genitourinary system. EENT: No signs and/or symptoms were reported regarding the EENT system. Derm: Skin is intact, is healthy with good turgor. Musculoskeletal: Circulation, motion, and sensation intact. Capillary refill < 3 seconds, in bilateral fingers. Range of motion: intact in all extremities. 13:26 GI: Bowel sounds hyperactive RUQ, RLQ and hypo LUQ, LLQ. zb Vital Signs: 11:54 BP 152 / 99; Pulse 116; Resp 20; Temp 100.8; Pulse Ox 97% on R/A; Weight 83.91 kg; ll1 Height 5 ft. 6 in. (167.64 cm); Pain 6/10; 12:00 BP 146 / 107; Pulse 69; Resp 18; Pulse Ox 100% on R/A; zb 13:00 BP 143 / 99; Pulse 74; Resp 18; Pulse Ox 99% on R/A; zb 14:00 BP 147 / 94; Pulse 80; Resp 16; Pulse Ox 97% on R/A; zb 15:00 BP 146 / 92; Pulse 76; Resp 16; Temp 98.9; Pulse Ox 98% on R/A; zb 11:54 Body Mass Index 29.86 (83.91 kg, 167.64 cm) ll1 ED Course: 11:47 Patient arrived in ED. mr 11:48 Hemanth Santizo MD is Private Physician. mr 11:58 Triage completed. ll1 11:59 Arm band placed on. ll1 12:51 Torie Del Valle RN is Primary Nurse. zb 12:52 Andi Canseco PA is PHCP. jmm 12:52 Boaz Hoffman MD is Attending Physician. jmm 13:22 Patient has correct armband on for positive identification. Placed in gown. Bed in low zb position. Call light in reach. Side rails up X 1. property assessment monitor on. NIBP on. Door closed. Noise minimized. Warm blanket given. 13:29 Inserted saline lock: 20 gauge in right forearm, using aseptic technique. zb 14:20 CT Abd/Pelvis - IV Contrast Only In Process Unspecified. EDMS 15:45 No provider procedures requiring assistance completed. IV discontinued, intact, zb bleeding controlled, No redness/swelling at site. Pressure dressing applied. Administered Medications: 13:30 Drug: NS 0.9% 1000 ml Route: IV; Rate: 1 bolus; Site: right forearm; zb 14:30 Follow up: Response: No adverse reaction; IV Status: Completed infusion; IV Intake: zb 1000ml 15:10 Drug: LevaQUIN 750 mg Route: PO; zb 15:10 Drug: metroNIDAZOLE 500 mg Route: PO; zb Intake: 14:30 IV: 1000ml; Total: 1000ml. zb Outcome: 15:26 Discharge ordered by MD. [facility] 15:45 Discharged to home ambulatory. zb 15:45 Condition: good 15:45 Discharge instructions given to patient, Instructed on discharge instructions, follow up and referral plans. medication usage, Demonstrated understanding of instructions, follow-up care, medications, Prescriptions given X 3. 15:46 Patient left the ED. ph Signatures: Dispatcher [employer] EDMS Andi Canseco PA PA jmm Riverrony Flores mr MichaudBri, RN Yoselin Adams ph, RN RN [facility] Torie Del Valle RN RN zb
--- NOTE | 2020-01-05 15:27 | EDPHYS ---
Physician Documentation [facility] Name: Pancho Fischer Age: 59 yrs Sex: Male : 1960 Arrival Date: 01/05/2020 Time: 11:47 Bed 15 Private MD: Hemanth Santizo E ED Physician Boaz Hoffman HPI: 01/04 13:26 This 59 yrs old Male presents to ER via Ambulatory with complaints of jmm Abdominal Pain, Diarrhea, Fever. 13:26 The patient presents with abdominal pain. Onset: The symptoms/episode began/occurred jmm gradually, 6 day(s) ago. The symptoms do not radiate. Associated signs and symptoms: Pertinent negatives: vomiting. This is a 59 year old male with a history of asthma, diverticulitis,. hlp that presents to the ED with complaints of generalized abdominal pain. Symptoms began this past Sunday after eating chicken. Patient developed diarrhea. Patient states then taking immodium for relief. Pain intensified this weekend. Patient complains of fever and chills. . Historical: - Allergies: 11:59 No Known Drug Allergies; ll1 - Home Meds: 13:26 Breo Ellipta 100-25 mcg/dose inhalation dsdv 1 puff once daily [Active]; zb - PMHx: 11:59 Asthma; Diverticulitis; High Cholesterol; sinus infection; ll1 - PSHx: 11:59 None; ll1 - Immunization history:: Flu vaccine is not up to date. - Social history:: Smoking status: Patient reports the use of cigarette tobacco products, denies chronic smoking, but will smoke occasionally. ROS: 13:26 Cardiovascular: Negative for chest pain, palpitations, and edema, Respiratory: Negative jmm for shortness of breath, cough, wheezing, and pleuritic chest pain. 13:26 Constitutional: Positive for fever. 13:26 Abdomen/GI: Positive for abdominal pain, diarrhea. 13:26 All other systems are negative. Exam: 13:26 Constitutional: This is a well developed, well nourished patient who is awake, alert, jmm and in no acute distress. Head/Face: atraumatic. Eyes: EOMI, no conjunctival erythema appreciated ENT: Moist Mucus Membranes Neck: Trachea midline, Supple Chest/axilla: Normal chest wall appearance and motion. Cardiovascular: Regular rate and rhythm. No edema appreciated Respiratory: Normal respirations, no respiratory distress appreciated 13:26 Back: Normal ROM Skin: General appearance color normal MS/ Extremity: Moves all extremities, no obvious deformities appreciated, no edema noted to the lower extremities Neuro: Awake and alert, normal gait Psych: Behavior is normal, Mood is normal, Patient is cooperative and pleasant 13:26 Abdomen/GI: Inspection: distension, that is moderate, Bowel sounds: normal, Palpation: soft, mild abdominal tenderness, in the epigastric area, right upper quadrant, left upper quadrant and left lower quadrant. Vital Signs: 11:54 BP 152 / 99; Pulse 116; Resp 20; Temp 100.8; Pulse Ox 97% on R/A; Weight 83.91 kg; ll1 Height 5 ft. 6 in. (167.64 cm); Pain 6/10; 12:00 BP 146 / 107; Pulse 69; Resp 18; Pulse Ox 100% on R/A; zb 13:00 BP 143 / 99; Pulse 74; Resp 18; Pulse Ox 99% on R/A; zb 14:00 BP 147 / 94; Pulse 80; Resp 16; Pulse Ox 97% on R/A; zb 15:00 BP 146 / 92; Pulse 76; Resp 16; Temp 98.9; Pulse Ox 98% on R/A; zb 11:54 Body Mass Index 29.86 (83.91 kg, 167.64 cm) ll1 MDM: 13:10 Patient medically screened. [facility] 15:25 Data reviewed: vital signs, nurses notes. Counseling: I had a detailed discussion with nhan the patient and/or guardian regarding: the historical points, exam findings, and any diagnostic results supporting the discharge/admit diagnosis, lab results, radiology results, the need for outpatient follow up, to return to the emergency department if symptoms worsen or persist or if there are any questions or concerns that arise at home. Refusal of service: The patient/guardian displays adequate decision making capability and despite a detailed discussion of alternatives, benefits, risks, and consequences refuses: Admission to the hospital for further work-up and treatment. 01/04 13:24 Order name: Basic Metabolic Panel; Complete Time: 14:22 [facility] 01/04 13:24 Order name: CBC with Diff; Complete Time: 14:05 [facility] 01/04 13:24 Order name: Hepatic Function; Complete Time: 14:22 [facility] 01/04 13:24 Order name: Lipase; Complete Time: 14:22 [facility] 01/04 13:24 Order name: Procalcitonin; Complete Time: 14:45 [facility] 01/04 13:24 Order name: Lactate; Complete Time: 14:45 [facility] 01/04 13:24 Order name: Blood Culture Adult (2) [facility] 01/04 13:24 Order name: CT Abd/Pelvis - IV Contrast Only; Complete Time: 15:01 [facility] 01/04 15:15 Order name: Urine Culture [facility] 01/04 15:18 Order name: Urine Dipstick--Ancillary (enter results) 01/04 15:18 Order name: Urine Dipstick-Ancillary [facility] 01/04 13:24 Order name: IV Saline Lock; Complete Time: 13:55 [facility] 01/04 13:24 Order name: Labs collected and sent; Complete Time: 13:55 [facility] Administered Medications: 13:30 Drug: NS 0.9% 1000 ml Route: IV; Rate: 1 bolus; Site: right forearm; zb 14:30 Follow up: Response: No adverse reaction; IV Status: Completed infusion; IV Intake: zb 1000ml 15:10 Drug: LevaQUIN 750 mg Route: PO; zb 15:10 Drug: metroNIDAZOLE 500 mg Route: PO; zb Disposition: 16:15 Co-signature as Attending Physician, Boaz Hoffman MD. rn Disposition: 01/05/20 15:26 Discharged to Home. Impression: Diverticulitis, Left Pyelonephritis. - Condition is Stable. - Discharge Instructions: Diverticulitis, Pyelonephritis, Adult. - Prescriptions for Zofran ODT 4 mg Oral tablet,disintegrating - place 1 tablet by TRANSLINGUAL route every 4-6 hours; 20 tablet. Flagyl 500 mg Oral Tablet - take 1 tablet by ORAL route every 6 hours for 10 days; 40 tablet. Levaquin 750 mg Oral Tablet - take 1 tablet by ORAL route once daily for 10 days; 10 tablet. Tylenol- Codeine #3 300-30 mg Oral Tablet - take 1 tablet by ORAL route every 6 hours As needed; 20 tablet. - Medication Reconciliation Form, Thank You Letter, Antibiotic Education, Prescription Opioid Use, Work release form form. - Follow up: Private Physician; When: 2 - 3 days; Reason: Recheck today's complaints, Continuance of care, Re-evaluation by your physician. Signatures: Dispatcher [employer] EDMS Andi Canseco PA PA jmm Nieto, Roman, MD MD rn Hall, Patricia, RN RN ph Lewis, Lynsay RN RN ll1 Torie Del Valle RN RN zb Corrections: (The following items were deleted from the chart) 15:46 15:26 01/05/2020 15:26 Discharged to Home. Impression: Diverticulitis; Left ph Pyelonephritis. Condition is Stable. Forms are Medication Reconciliation Form, Thank You Letter, Antibiotic Education, Prescription Opioid Use. Follow up: Private Physician; When: 2 - 3 days; Reason: Recheck today's complaints, Continuance of care, Re-evaluation by your physician. nhan
[2020-01-05] MEDS ORDERED: metroNIDAZOLE 500 MG TABLET ONE (15:32)
[2020-01-05] MEDS ORDERED: levoFLOXacin 750 MG TAB ONE (15:32)
[2020-01-05 15:55] LABS: Urine Blood 1+ (NEG); Urine Glucose NEGATIVE (NEG); Urine Protein 2+ (NEG)
[2020-01-05 17:27] VITALS: TEMP 100.8
[2020-01-05 17:35] VITALS: BP 147/94; O2SAT 97
== END 2020-01-05 15:46 | disposition home or self-care (01) ==
LOC: ER 11:44
DX: N12 Tubulo-interstitial nephritis, not specified as acute or chronic (principal); K57.32 Diverticulitis of large intestine without perforation or abscess without bleeding; E78.00 Pure hypercholesterolemia, unspecified; F17.210 Nicotine dependence, cigarettes, uncomplicated
CPT/HCPCS: 87040 ×2; 87088; 85025; 87086; 80048; 36415; 82565; 80076; 83605; 87077; 87186; 81003; 83690; 84145; 74177; 96360; 99284; Q9967; J7030

== ENCOUNTER 2020-01-05 18:01 | Observation (INO) | payer BC ==
[2020-01-05 18:44] LABS: Absolute Lymphocytes (CBC) 1.3 K/uL (0.7-4.9); Basophils % 0.4 % (0-1.3); Hematocrit 37.8 % (39.6-49.0); Lymphocytes % 9.7 % (15.3-44.8); MPV 6.8 fL (7.6-11.3)
--- NOTE | 2020-01-05 18:45 | ER ---
Nurse's Notes [facility] Name: Pancho Fischer Age: 59 yrs Sex: Male : 1960 Arrival Date: 01/05/2020 Time: 18:12 Bed 13 Private MD: Diagnosis: acute diverticulitis;acute pyelonephritis Presentation: 01/04 18:12 Chief complaint: EMS states: Pt was treated and d/c from ED earlier today, dx w/ ph diverticulitis and pyelonephritis, went to [facility] to get scripts filled and began to have abdominal pain while waiting in line, was able to lie down on floor before passing out. BP while lying down was 160s systolic HR 100, when pt stood up systolic BP went down to 140s and HR went up to 120s, 12 lead EKG normal, 20G IV to L hand and approx 150 mL NS given. Coronavirus screen: Client denies travel out of the [place] in the last 14 days. Ebola Screen: No symptoms or risks identified at this time. Initial Sepsis Screen: Does the patient meet any 2 criteria? HR > 90 bpm. Does the patient have a suspected source of infection? Yes: Acute abdominal pain. Risk Assessment: Do you want to hurt yourself or someone else? Patient reports no desire to harm self or others. Onset of symptoms was January 05, 2020. 18:12 Method Of Arrival: EMS: [facility] 18:12 Acuity: MELI 3 ph Historical: - Allergies: 18:19 No Known Allergies; ph - PMHx: 18:19 Asthma; Diverticulitis; High Cholesterol; sinus infection; ph - PSHx: 18:19 None; ph - Immunization history:: Adult Immunizations unknown. - Social history:: Smoking status: Patient denies any tobacco usage or history of. Patient uses alcohol, claims drinking about a 6 pack/day. Screenin:19 Abuse screen: Denies threats or abuse. Denies injuries from another. Nutritional ph screening: No deficits noted. Tuberculosis screening: No symptoms or risk factors identified. Fall Risk No fall in past 12 months (0 pts). No secondary diagnosis (0 pts). IV access (20 points). Ambulatory Aid- None/Bed Rest/Nurse Assist (0 pts). Gait- Weak (10 pts.). Mental Status- Oriented to own ability (0 pts). Total Garces Fall Scale indicates Low Risk Score (25-44 pts). Fall prevention measures have been instituted. Side Rails Up X 2 Placed close to Nursing Station Frequent Obs/Assesments occuring As available Patient and Family Educated on Fall Prevention Program and strategies. Assessment: 18:20 General: Appears in no apparent distress. comfortable, Behavior is calm, cooperative, ph appropriate for age. Pain: Complains of pain in abdomen. Neuro: Level of Consciousness is awake, alert, obeys commands, Oriented to person, place, time, situation, Reports dizziness, a syncopal episode Denies weakness blurred vision headache. Cardiovascular: Reports lightheadedness, syncope, Denies chest pain, Capillary refill < 3 seconds in bilateral fingers Patient's skin is warm and dry. Respiratory: Airway is patent Respiratory effort is even, unlabored, Respiratory pattern is regular, symmetrical. GI: Abdomen is round Reports lower abdominal pain, upper abdominal pain. : No signs and/or symptoms were reported regarding the genitourinary system. Derm: Skin is intact, Skin is pink, warm \T\ dry. Musculoskeletal: Circulation, motion, and sensation intact. Range of motion: intact in all extremities. 19:32 Reassessment: Patient and/or family updated on plan of care and expected duration. Pain ea level reassessed. Patient is alert, oriented x 3, equal unlabored respirations, skin warm/dry/pink. Awaiting on covid results for room assignments. 20:12 Reassessment: Patient and/or family updated on plan of care and expected duration. Pain ea level reassessed. Patient is alert, oriented x 3, equal unlabored respirations, skin warm/dry/pink. Pt admitted to to second floor. Report given to receiving nurse on second floor. 20:31 Reassessment: Patient and/or family updated on plan of care and expected duration. Pain ea level reassessed. Patient is alert, oriented x 3, equal unlabored respirations, skin warm/dry/pink. Pt admitted to second floor, left ED via wheelchair per tech. Pt tolerating well. Vital Signs: 18:12 BP 130 / 73; Pulse 108; Resp 18; Temp 97.8; Pulse Ox 95% on R/A; Weight 83.91 kg; ph Height 5 ft. 6 in. (167.64 cm); Pain 4/10; 19:26 BP 129 / 69; Pulse 83; Resp 18; Pulse Ox 96% on R/A; ea 20:10 BP 122 / 66; Pulse 80; Resp 18; Temp 98; Pulse Ox 97% ; ea 18:12 Body Mass Index 29.86 (83.91 kg, 167.64 cm) ph ED Course: 18:12 Patient arrived in ED. ph 18:16 Andi Canseco PA is PHCP. [facility] 18:16 Boaz Hoffman MD is Attending Physician. [facility] 18:18 Triage completed. ph 18:18 Arm band placed on Patient placed in an exam room, on a stretcher, on pulse oximetry. ph 18:20 Patient has correct armband on for positive identification. Placed in gown. Bed in low ph position. Call light in reach. Side rails up X 1. Pulse ox on. NIBP on. Door closed. Noise minimized. Warm blanket given. 18:27 Initial lab(s) drawn, by al, sent to lab. [facility] 18:43 Raul Lock is Hospitalizing Provider. [facility] 19:26 Rena Jimenez, RN is Primary Nurse. ea 19:26 No provider procedures requiring assistance completed. Patient admitted, IV remains in ea place. Administered Medications: No medications were administered Outcome: 18:44 Decision to Hospitalize by Provider. [facility] 19:26 Instructed on the need for admit, Demonstrated understanding of instructions. ea 20:11 Admitted to Med/surg accompanied by tech, room 217, Report called to Receiving nurse ea on second floor 20:12 Condition: stable ea 20:30 Patient left the ED. ea Signatures: Andi Canseco PA PA jmm Hall, Patricia, RN RN Lynnette Toro [facility] Rena Jimenez, RN RN ea
--- NOTE | 2020-01-05 18:45 | EDPHYS ---
Physician Documentation [facility] Name: Pancho Fischer Age: 59 yrs Sex: Male : 1960 Arrival Date: 01/05/2020 Time: 18:12 Bed 13 Private MD: ED Physician Boaz Hoffman HPI: 01/04 18:14 This 59 yrs old Male presents to ER via EMS with complaints of Syncope. jmm 18:14 weakness. Onset: The symptoms/episode began/occurred acutely, just prior to arrival. jmm Patient diagnosed today with diverticulitis and pyelonephritis. Patient states he became weak at a [employer] while waiting for rx and decided he needed to lay down. Denies chest pain, shortness of breath. Complains of ongoing abdominal pain. . Historical: - Allergies: 18:19 No Known Allergies; ph - PMHx: 18:19 Asthma; Diverticulitis; High Cholesterol; sinus infection; ph - PSHx: 18:19 None; ph - Immunization history:: Adult Immunizations unknown. - Social history:: Smoking status: Patient denies any tobacco usage or history of. Patient uses alcohol, claims drinking about a 6 pack/day. ROS: 18:14 Constitutional: Negative for fever, chills, and weight loss, Cardiovascular: Negative jmm for chest pain, palpitations, and edema, Respiratory: Negative for shortness of breath, cough, wheezing, and pleuritic chest pain. 18:14 Abdomen/GI: Positive for abdominal pain. 18:14 All other systems are negative. Exam: 18:14 Constitutional: This is a well developed, well nourished patient who is awake, alert, jmm and in no acute distress. Head/Face: atraumatic. Eyes: EOMI, no conjunctival erythema appreciated ENT: Moist Mucus Membranes Neck: Trachea midline, Supple Chest/axilla: Normal chest wall appearance and motion. Cardiovascular: Regular rate and rhythm. No edema appreciated Respiratory: Normal respirations, no respiratory distress appreciated 18:14 Back: Normal ROM Skin: General appearance color normal MS/ Extremity: Moves all extremities, no obvious deformities appreciated, no edema noted to the lower extremities Neuro: Awake and alert, normal gait Psych: Behavior is normal, Mood is normal, Patient is cooperative and pleasant 18:14 Abdomen/GI: Inspection: abdomen appears normal, Bowel sounds: normal, Palpation: abdomen is soft and non-tender, in all quadrants. Vital Signs: 18:12 BP 130 / 73; Pulse 108; Resp 18; Temp 97.8; Pulse Ox 95% on R/A; Weight 83.91 kg; ph Height 5 ft. 6 in. (167.64 cm); Pain 4/10; 19:26 BP 129 / 69; Pulse 83; Resp 18; Pulse Ox 96% on R/A; ea 20:10 BP 122 / 66; Pulse 80; Resp 18; Temp 98; Pulse Ox 97% ; ea 18:12 Body Mass Index 29.86 (83.91 kg, 167.64 cm) ph MDM: 18:16 Data reviewed: vital signs, nurses notes. Counseling: I had a detailed discussion with nhan the patient and/or guardian regarding: the historical points, exam findings, and any diagnostic results supporting the discharge/admit diagnosis, lab results, the need for further work-up and treatment in the hospital. 18:17 Patient medically screened. [facility] 20:17 ED course: I discussed the patient with Vinod Flannery whom accepted admission to Dr. nhan Lock's service. . 01/04 18:16 Order name: CBC with Diff; Complete Time: 19:04 [facility] 01/04 18:16 Order name: BMP; Complete Time: 19:04 [facility] 01/04 18:16 Order name: Lactate; Complete Time: 19:04 [facility] 01/04 18:16 Order name: Saline Lock; Complete Time: 18:21 [facility] 01/04 19:17 Order name: COVID-19 la1 Administered Medications: No medications were administered Disposition: 01/05/20 18:44 Hospitalization ordered by Raul Lock for Observation. Preliminary diagnosis are acute diverticulitis, acute pyelonephritis. - Bed requested for Telemetry/MedSurg (observation). - Status is Observation. ea - Condition is Stable. - Problem is new. - Symptoms are unchanged. Addendum: 01/07/2020 18:54 Co-signature as Attending Physician, Boaz Hoffman MD. r n Signatures: Dispatcher [employer] EDMS Andi Canseco PA PA jmm Nieto, Roman, MD MD rn Attema, Vinod, VIRTUAL REALITY SPECIALIST-C VIRTUAL REALITY SPECIALIST-Cla1 Bri Michaud RN Mi Irizarry ph, RN RN cg Antunez, Elena, RN RN ea Corrections: (The following items were deleted from the chart) 01/04 19:59 18:44 Hospitalization Ordered by Raul Lock for Observation. Preliminary diagnosis cg is acute diverticulitis; acute pyelonephritis. Bed requested for Telemetry/MedSurg (observation). Status is Observation. Condition is Stable. Problem is new. Symptoms are unchanged. [facility] 20:30 19:59 01/05/2020 18:44 Hospitalization Ordered by Raul Lock for Observation. darrick Preliminary diagnosis is acute diverticulitis; acute pyelonephritis. Bed requested for Telemetry/MedSurg (observation). Status is Observation. Condition is Stable. Problem is new. Symptoms are unchanged. cg
[2020-01-05 18:50] LABS: Potassium 3.4 mmol/L (3.5-5.1)
--- NOTE | 2020-01-05 19:59 | P.HP ---
Certification for Inpatient Patient admitted to: Inpatient With expected LOS: >2 Midnights Patient will require the following post-hospital care: None Practitioner: I am a practitioner with admitting privileges, knowledge of patient current condition, hospital course, and medical plan of care. Services: Services provided to patient in accordance with Admission requirements found in Title 42 Section 412.3 of the Code of Federal Regulations <Vinod Flannery - Last Filed: 01/05/20 19:56> Patient History Date of Service: 01/05/20 Primary Care Provider: Dr. Santizo Reason for admission: Diverticulitis, pyelonephritis History of Present Illness: 51-year-old male with history of hyperlipidemia, urinary tract infections presents emergency department for abdominal pain. Patient was evaluated earlier in the day in the emergency department and diagnosed with diverticulitis and pyelonephritis. Patient was offered admission but deferred at that time, was discharged on oral Levaquin and Flagyl. Patient had worsening pain at home and decided to return to the emergency department. Patient's CT sc an done earlier today shows mild sigmoid diverticulitis and mild left-sided pyelonephritis. Patient has had UTIs and diverticulitis in the past. 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 White blood cell count 13.7, potassium 3.4 lactic acid 1.2, pro calcitonin negative earlier in the day. ED provider wishes to admit patient for further evaluation and management. When I saw the patient in the emergency department is awake, alert, oriented x3. Patient with mild lower abdominal tenderness, no CVA tenderness noted. - Past Medical/Surgical History Diabetic: No -: Asthma -: Diverticulitis -: Urinary tract infections -: Bladder fistula? -: none Psychosocial/ Personal History: Patient lives at home - Family History Father -: Stroke - Social History Smoking Status: Former smoker Alcohol use: Yes CD- Drugs: No Caffeine use: Yes Place of Residence: Home <Vinod Flannery - Last Filed: 01/05/20 19:56> Date of Service: 01/06/20 <zuhair jones - Last Filed: 01/06/20 11:40> Allergies No Known Drug Allergies Allergy (Verified 01/05/20 20:43) Unknown Home Medications: Bismuth Subsalicylate [Pepto-Bismol] 1 tab PO TID PRN 01/05/20 Calcium Carbonate [Tums] 1 tab PO TID PRN 01/05/20 Fluticasone/Vilanterol [Breo Ellipta 100-25 Mcg INH] 1 puff IH DAILY 01/05/20 Ibuprofen [Advil] 1 cap PO TID PRN 01/05/20 Simvastatin 1 tab PO BEDTIME 01/05/20 Amox/Clavulanate [Augmentin 875-125 Tab] 1 each PO BID #20 tab 01/06/20 metroNIDAZOLE [Flagyl] 500 mg PO Q8H #30 tablet 01/06/20 Review of Systems 10-point ROS is otherwise unremarkable Gastrointestinal: Nausea, Abdominal Pain, Diarrhea <Vinod Flannery - Last Filed: 01/05/20 19:56> Physical Examination - Physical Exam General: Alert, In no apparent distress, Oriented x3 HEENT: Atraumatic, Normocephalic Neck: Supple Respiratory: Clear to auscultation bilaterally Cardiovascular: No edema Capillary refill: <2 Seconds Gastrointestinal: Normal bowel sounds, Soft and benign Musculoskeletal: No contractures, No erythema, No tenderness Integumentary: No tenderness/swelling, No erythema, No warmth Neurological: Normal gait, Normal speech, Normal strength at 5/5 x4 extr, Normal tone, Sensation intact Lymphatics: No axilla or inguinal lymphadenopathy - Studies Laboratory Data (last 24 hrs) 01/05/20 18:27: Sodium 138, Potassium 3.4 L, BUN 11, Creatinine 1.05, Glucose 133 H 01/05/20 18:27: WBC 13.7 H, Hgb 12.9 L, Hct 37.8 L, Plt Count 262 D <Vinod Flannery - Last Filed: 01/05/20 19:56> - Studies Laboratory Data (last 24 hrs) 01/05/20 18:27: Sodium 138, Potassium 3.4 L, BUN 11, Creatinine 1.05, Glucose 133 H 01/05/20 18:27: WBC 13.7 H, Hgb 12.9 L, Hct 37.8 L, Plt Count 262 D <zuhair jones - Last Filed: 01/06/20 11:40> Assessment and Plan - Plan Assessment Mild sigmoid diverticulitis Mild left-sided pyelonephritis Asthma Hyperlipidemia Plan Mild sigmoid diverticulitis: Continue Levaquin/Flagyl. Blood cultures obtained earlier today. Clear liquid diet, advanced as tolerated. P.r.n. pain medications. Lovenox 40 mg subcu once daily for DVT prophylaxis. Mild left-sided pyelonephritis: Continue Levaquin. Urine culture obtained. P.r.n. pain medications. Asthma: P.r.n. inhaler, continue home medications Hyperlipidemia: Continue home medications. Discharge Plan: Home Plan to discharge in: 48 Hours - Advance Directives Does patient have a Living Will: No Does patient have a Durable POA for Healthcare: No - Code Status/Comfort Care Code Status Assessed: Yes (Full code) Critical Care: No Time Spent Managing Pts Care (In Minutes): 55 <Vinod Flannery - Last Filed: 01/05/20 19:56> Physician Review: Patient Assessed, Agree with Above Assessment and Plan Physician Review Additional Text: Diverticulitis UTI. Plan: IV antibiotics. Follow cultures. <zuhair jones - Last Filed: 01/06/20 11:40>
[2020-01-05 20:44] VITALS: BMI 31.3
[2020-01-05] MEDS ORDERED: MORPHINE 2 MG/ML SYR IV PRN (20:46)
[2020-01-05] MEDS ORDERED: Levofloxacin500mg IV 500 MG/100 ML BAG IV SCH (20:46)
[2020-01-05] MEDS ORDERED: ONDANSETRON 4 MG/2 ML VIAL IV PRN (20:46)
[2020-01-05] MEDS ORDERED: ACETAMINOPHEN 500 MG TAB PO PRN (20:46)
[2020-01-05] MEDS ORDERED: ALBUTEROL INHALER 60 PUFF/8 GM IH PRN (20:46)
[2020-01-05] MEDS ORDERED: POTASSIUM CL SA 10 MEQ TAB PO ONE (20:48)
[2020-01-05] MEDS: NA CHLORIDE 0.9% 1,000 ML IV SCH (21:16)
[2020-01-06] MEDS: METRONIDAZOLE 500mg IVPB 500 MG/100 ML BAG IV SCH ×2 (00:39→08:59)
[2020-01-06 02:48] VITALS: O2SAT 97
[2020-01-06] MEDS: NA CHLORIDE 0.9% 1,000 ML IV SCH ×2 (03:58→10:40)
[2020-01-06 04:09] LABS: Absolute Lymphocytes (CBC) 1.9 K/uL (0.7-4.9); Basophils % 0.4 % (0-1.3); Hematocrit 36.8 % (39.6-49.0); Lymphocytes % 15.2 % (15.3-44.8); MPV 6.7 fL (7.6-11.3); RBC Red Blood Cell Count 4.19 M/uL (4.33-5.43)
[2020-01-06 04:44] LABS: Albumin 2.8 g/dL (3.4-5.0); Bilirubin Total 0.8 mg/dL (0.2-1.0); Magnesium 2.4 mg/dL (1.8-2.4); Potassium 4.3 mmol/L (3.5-5.1); Protein, Total 7.2 g/dL (6.4-8.2)
[2020-01-06] MEDS ORDERED: INFLUENZA VACCINE (for 3y+) 0.5 ML DOSE IMVAC ONE (06:00)
[2020-01-06 08:58] VITALS: BP 132/69; TEMP 97.6
[2020-01-06] MEDS ORDERED: ENOXAPARIN 40 MG/0.4 ML SQ SCH (09:00)
[2020-01-06] MEDS ORDERED: HOME MED 1 EA UNK (Fluticasone/Vilanterol [Breo Ellipta 100-25 Mcg Inh] 1 PUFF) IH SCH (09:00)
--- NOTE | 2020-01-06 10:53 | P.DS ---
Admission Date: 01/05/20 Discharge Date: 01/06/20 Primary Care Provider: Dr. Santizo Disposition: ROUTINE DISCHARGE Discharge Condition: FAIR Reason for Admission: Diverticulitis, pyelonephritis Consultations: None Procedures: None - Problems (1) Colovesical fistula Status: Acute (2) Diverticulitis of sigmoid colon Status: Acute (3) Urinary tract infection Status: Acute Brief History of Present Illness: 59-year-old gentleman presented to the emergency department with a complaint of abdominal pain. He was in the emergency department earlier and was found to have UTI and pyelonephritis. Patient was offered hospitalization but he declined and was discharged with oral antibiotics. He developed severe abdominal pain at the pharmacy while he was trying to fill his medications. He therefore presented to the emergency department and was subsequently admitted for further mangement. Hospital Course: Patient was admitted to the medical floor and treated with IV Levaquin and metronidazole. Patient's symptoms resolved overnight. He denies any diarrhea. He denied any abdominal pain today. UA is growing Gram negative rods. Previous urine cultures have grown E. coli resistant to fluoroquinolones and sensitive to Augmentin and cephalosporins. 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 He is supposed to follow with his PCP for referral to a specialist to have the fistula repaired. Patient is currently asymptomatic. He is discharged with Augmentin and Flagyl. He will follow with his PCP for the referral. Vital Signs/Physical Exam: Temp Pulse Resp BP Pulse Ox 97.6 F 80 15 132/69 98 01/06/20 08:00 01/06/20 08:00 01/06/20 08:00 01/06/20 08:00 01/06/20 08:00 General: Alert, In no apparent distress HEENT: Mucous membr. moist/pink Neck: Supple Respiratory: Clear to auscultation bilaterally, Normal air movement Cardiovascular: No edema, Regular rate/rhythm, Normal S1 S2 Gastrointestinal: Normal bowel sounds, Soft and benign, No tenderness Musculoskeletal: No swelling Integumentary: No rashes, No tenderness/swelling Neurological: Other (Nonfocal) Laboratory Data at Discharge: WBC 12.7 K/uL (4.3-10.9) H 01/06/20 03:42 Hgb 12.6 g/dL (13.6-17.9) L 01/06/20 03:42 Hct 36.8 % (39.6-49.0) L 01/06/20 03:42 Plt Count 272 K/uL (152-406) 01/06/20 03:42 Sodium 139 mmol/L (136-145) 01/06/20 03:42 Potassium 4.3 mmol/L (3.5-5.1) 01/06/20 03:42 BUN 11 mg/dL (7-18) 01/06/20 03:42 Creatinine 1.05 mg/dL (0.55-1.3) 01/06/20 03:42 Glucose 118 mg/dL (74-106) H 01/06/20 03:42 Magnesium 2.4 mg/dL (1.8-2.4) 01/06/20 03:42 Total Bilirubin 0.8 mg/dL (0.2-1.0) 01/06/20 03:42 AST 28 U/L (15-37) 01/06/20 03:42 ALT 38 U/L (12-78) 01/06/20 03:42 Alkaline Phosphatase 95 U/L (45-117) 01/06/20 03:42 Triglycerides 81 mg/dL (<150) 01/06/20 03:42 Cholesterol 149 mg/dL (<200) 01/06/20 03:42 HDL Cholesterol 42 mg/dL (40-60) 01/06/20 03:42 Cholesterol/HDL Ratio 3.55 01/06/20 03:42 Home Medications: Bismuth Subsalicylate [Pepto-Bismol] 1 tab PO TID PRN 01/05/20 Calcium Carbonate [Tums] 1 tab PO TID PRN 01/05/20 Fluticasone/Vilanterol [Breo Ellipta 100-25 Mcg INH] 1 puff IH DAILY 01/05/20 Ibuprofen [Advil] 1 cap PO TID PRN 01/05/20 Simvastatin 1 tab PO BEDTIME 01/05/20 Amox/Clavulanate [Augmentin 875-125 Tab] 1 each PO BID #20 tab 01/06/20 metroNIDAZOLE [Flagyl] 500 mg PO Q8H #30 tablet 01/06/20 New Medications: Amox/Clavulanate [Augmentin 875-125 Tab] 1 each PO BID #20 tab metroNIDAZOLE [Flagyl] 500 mg PO Q8H #30 tablet Diet: AHA Activity: Ad noe Followup: Hemanth Santizo MD [Primary Care Provider] - 1-2 Weeks
[2020-01-06] MEDS ORDERED: ATORVASTATIN 10 MG TAB PO SCH (21:00)
== END 2020-01-06 12:16 | disposition home or self-care (01) ==
LOC: ER 18:01 → INTOOBSV 19:22 → ERHOLD 19:22 → 2ND 20:13
PROVIDERS: ADMIT Internal Medicine; ATTEND Internal Medicine
DX: K57.32 Diverticulitis of large intestine without perforation or abscess without bleeding (principal); N12 Tubulo-interstitial nephritis, not specified as acute or chronic; N32.1 Vesicointestinal fistula; J45.909 Unspecified asthma, uncomplicated; Z87.891 Personal history of nicotine dependence; E78.5 Hyperlipidemia, unspecified; Z20.828 Contact with and (suspected) exposure to other viral communicable diseases
CPT/HCPCS: 85025 ×2; 80048; 36415; 83735; 80061; 83605; 80053; 99285; U0002; J1650; J2270; J7030 ×2; Q2035

== ENCOUNTER 2020-09-26 07:59 | Emergency (ER) | payer BC ==
--- OUTSIDE RECORDS SUMMARY | 2020-09-26 08:02 | XMS REPORT | Continuity of Care Document ---
:1960 Author Organization [facility] t Address [address] [place] [address] [address] [place] [address] Care Team Providers Name Role Phone Unavailable Unavailable Unavailable Problems This patient has no known problems. Allergies, Adverse Reactions, Alerts This patient has no known allergies or adverse reactions. Medications This patient has no known medications. Procedures This patient has no known procedures. Encounters Start End Encounter Admission Attending Care Care Encounter Source Date/Time Date/Time Type Type Clinicians Facility Department ID 2020-03-09 2020-03-09 Outpatient [facility] [id number] [facility] 2020-02-05 2020-02-05 Out[facility] [id number] [facility] 2020-01-14 2020-01-14 Out[facility] [id number] [facility] Results This patient has no known results.
[2020-09-26 08:25] LABS: Urine Blood Negative (Negative); Urine Glucose Negative (Negative); Urine Protein Trace (Negative); Urine Specific Gravity 1.025 (1.005-1.030); Urine pH 5.5 (5.0-7.0)
[2020-09-26 08:38] LABS: Absolute Lymphocytes (CBC) 2.2 K/uL (0.7-4.9); Basophils % 0.7 % (0-1.3); Hematocrit 41.3 % (39.6-49.0); Lymphocytes % 32.8 % (15.3-44.8); MPV 6.3 fL (7.6-11.3)
[2020-09-26 08:52] LABS: Albumin 3.8 g/dL (3.4-5.0); Bilirubin Direct 0.2 mg/dL (0-0.2); Bilirubin Total 0.6 mg/dL (0.2-1.0); Potassium 3.6 mmol/L (3.5-5.1); Protein, Total 7.9 g/dL (6.4-8.2)
[2020-09-26 08:53] LABS: Urine Bacteria 20-50 /HPF (NONE SEEN); Urine Mucus MOD /HPF (NONE SEEN); Urine RBC <5 /HPF (NONE SEEN)
--- NOTE | 2020-09-26 09:04 | RAD REPORT ---
EXAM DESCRIPTION: CTAbdomen Pelvis W Contrast - 09/26/2020 8:46 am CLINICAL HISTORY: Abdominal pain. ABD PAIN COMPARISON: Abdomen Pelvis W Contrast dated 01/05/2020; Abdomen Pelvis W Contrast dated 0; CT ABD PELVIS W CONTRAST dated 02/01/2015 TECHNIQUE: Biphasic CT imaging of the abdomen and pelvis was performed with 100 ml non-ionic IV cont rast. All CT scans are performed using dose optimization technique as appropriate and may include automated exposure control or mA/KV adjustment according to patient size. FINDINGS: The lung bases are clear. The heart size is normal. No focal liver lesions are identified. The adrenal glands are unremarkable. The pancreas unremarkable . Too small to characterize renal lesions are noted which are statistically benign. Diverticulosis is noted. There is abnormal enhancement in the sigmoid colon with some adjacent prominent lymph nodes. The bladder wall is thickened and enhancing. There is gas within the nondependent portions. There is enhancing tract of soft tissue extending to the adjacent sigmoid colon. See sagittal image 66, series 503 peer Prostate unremarkable. No appendicitis. No adrenal lesions are seen. The spleen is within n ormal limits. IMPRESSION: Findings concerning for colovesical fistula and cystitis. The sigmoid colon has eccentri c thickening and enhancement that should be further evaluated with a nonemergent colonoscopy as well.
--- NOTE | 2020-09-26 09:27 | ER ---
Nurse's Notes [facility] Name: Pancho Fischer Age: 60 yrs Sex: Male : 1960 Arrival Date: 09/26/2020 Time: 08:02 Bed 9 Private MD: Diagnosis: UTI/ Urinary tract infection, site not specified;Colovesical Fistula Presentation: 09/26 08:06 Chief complaint: Patient states: has been having UTI's and stomach has been hurting, iw feels run down, hx of diverticulitis , burning with urination X 1 week. Coronavirus screen: At this time, the client does not indicate any symptoms associated with coronavirus-19. Ebola Screen: Patient negative for fever greater than or equal to 101.5 degrees Fahrenheit, and additional compatible Ebola Virus Disease symptoms Patient denies exposure to infectious person. Patient denies travel to an Ebola-affected area in the 21 days before illness onset. No symptoms or risks identified at this time. Initial Sepsis Screen: Does the patient meet any 2 criteria? No. Patient's initial sepsis screen is negative. Does the patient have a suspected source of infection? No. Patient's initial sepsis screen is negative. Risk Assessment: Do you want to hurt yourself or someone else? Patient reports no desire to harm self or others. Onset of symptoms was September 19, 2020. 08:06 Method Of Arrival: Ambulatory iw 08:06 Acuity: MELI 3 iw Historical: - Allergies: 08:07 No Known Allergies; iw - PMHx: 08:07 Asthma; Diverticulitis; High Cholesterol; sinus infection; iw - PSHx: 08:07 None; iw - Immunization history:: Client reports having NOT received the Covid vaccine. - Social history:: Smoking status: Patient denies any tobacco usage or history of. Screenin:10 Abuse screen: Denies threats or abuse. Denies injuries from another. Nutritional iw screening: No deficits noted. Tuberculosis screening: No symptoms or risk factors identified. Fall Risk None identified. Assessment: 08:15 General: Appears in no apparent distress. Behavior is calm, cooperative. Pain: iw Complains of pain in suprapubic area and left lower quadrant. Neuro: Level of Consciousness is awake, alert, obeys commands, Oriented to person, place, time, Appropriate for age. Cardiovascular: Patient's skin is warm and dry. Respiratory: Respiratory effort is even, unlabored, Respiratory pattern is regular, symmetrical. GI: Bowel sounds present X 4 quads. Abd is soft X 4 quads. : Reports burning with urination. Derm: Skin is intact, is healthy with good turgor. 09:10 Reassessment: Patient appears in no apparent distress at this time. Patient and/or iw family updated on plan of care and expected duration. Pain level reassessed. Patient is alert, oriented x 3, equal unlabored respirations, skin warm/dry/pink. 09:46 Reassessment: Patient is alert, oriented x 3, equal unlabored respirations, skin aa5 warm/dry/pink. Vital Signs: 08:08 BP 151 / 80; Pulse 84; Resp 16; Temp 98.1; Pulse Ox 98% on R/A; Weight 74.84 kg; Height iw 5 ft. 6 in. (167.64 cm); 08:08 Body Mass Index 26.63 (74.84 kg, 167.64 cm) iw ED Course: 08:00 Initial lab(s) drawn, by me, sent to lab. Inserted saline lock: 20 gauge in right iw forearm, using aseptic technique. Blood collected. 08:02 Patient arrived in ED. as 08:02 Port[facility]C [facility]. kb 08:02 Kye Aiken MD is Attending Physician. kb 08:07 Triage completed. iw 08:08 Arm band placed on. iw 08:14 Ana Luisa Flores, RN is Primary Nurse. iw 08:46 CT Abd/Pelvis - IV Contrast Only In Process Unspecified. EDMS 09:36 No provider procedures requiring assistance completed. iw 09:46 IV discontinued, intact, bleeding controlled, No redness/swelling at site. Pressure aa5 dressing applied. Administered Medications: 09:45 Drug: Cipro (ciprofloxacin) 500 mg Route: PO; aa5 09:46 Follow up: Response: Medication administered at discharge. aa5 Outcome: :26 Discharge ordered by . kb 09:46 Discharged to home ambulatory. aa5 09:46 Condition: stable 09:46 Discharge instructions given to patient, Instructed on discharge instructions, follow up and referral plans. medication usage, Demonstrated understanding of instructions, follow-up care, medications, Prescriptions given X 1. 09:46 Patient left the ED. aa5 Signatures: Dispatcher [employer] Portia Garcia, RIPC Fabienne Maier Irene, RN RN iw Sharon Harrison RN RN aa5
--- NOTE | 2020-09-26 09:27 | EDPHYS ---
Physician Documentation [facility] Name: Pancho Fischer Age: 60 yrs Sex: Male : 1960 Arrival Date: 09/26/2020 Time: 08:02 Bed 9 Private MD: ED Physician Kye Aiken HPI: 09/26 08:30 This 60 yrs old Male presents to ER via Ambulatory with complaints of Pain kb With Urination, Pelvic Pain, Abdominal Pain. 08:30 The patient presents with abdominal pain in the lower abdomen. Onset: The kb symptoms/episode began/occurred today. The symptoms do not radiate. Associated signs and symptoms: Pertinent positives: dysuria, Pertinent negatives: nausea, vomiting, and diarrhea, fever. The symptoms are described as constant. Modifying factors: The symptoms are alleviated by nothing, the symptoms are aggravated by nothing. Severity of pain: At its worst the pain was mild in the emergency department the pain is unchanged. The patient has experienced similar episodes in the past, a few times. The patient has not recently seen a physician. Pt reports dysuria for a week, lower abd pain started this morning. Denies fever, n/v/d. Historical: - Allergies: 08:07 No Known Allergies; iw - PMHx: 08:07 Asthma; Diverticulitis; High Cholesterol; sinus infection; iw - PSHx: 08:07 None; iw - Immunization history:: Client reports having NOT received the Covid vaccine. - Social history:: Smoking status: Patient denies any tobacco usage or history of. ROS: 08:29 Constitutional: Negative for fever, chills, and weight loss. kb 08:29 Abdomen/GI: Positive for abdominal pain, Negative for nausea, vomiting, and diarrhea. 08:29 : Positive for burning with urination. 08:29 All other systems are negative. Exam: 08:29 Constitutional: This is a well developed, well nourished patient who is awake, alert, kb and in no acute distress. Head/Face: Normocephalic, atraumatic. ENT: Moist Mucous membranes Cardiovascular: Regular rate and rhythm with a normal S1 and S2. No gallops, murmurs, or rubs. No pulse deficits. Respiratory: Respirations even and unlabored. No increased work of breathing, no retractions or nasal flaring. Back: No spinal tenderness. No costovertebral tenderness. Full range of motion. Skin: Warm, dry with normal turgor. Normal color. MS/ Extremity: Pulses equal, no cyanosis. Neurovascular intact. Full, normal range of motion. Neuro: Awake and alert, GCS 15, oriented to person, place, time, and situation. Moves all extremities. Normal gait. Psych: Awake, alert, with orientation to person, place and time. Behavior, mood, and affect are within normal limits. 08:29 Abdomen/GI: Inspection: abdomen appears normal, Bowel sounds: normal, in all quadrants, Palpation: soft, in all quadrants, mild abdominal tenderness, in the left lower quadrant. Vital Signs: 08:08 BP 151 / 80; Pulse 84; Resp 16; Temp 98.1; Pulse Ox 98% on R/A; Weight 74.84 kg; Height iw 5 ft. 6 in. (167.64 cm); 08:08 Body Mass Index 26.63 (74.84 kg, 167.64 cm) iw MDM: 08:15 Patient medically screened. kb 08:29 Data reviewed: vital signs, nurses notes. Data interpreted: Pulse oximetry: on room air kb is 98 %. Interpretation: normal. 09:24 Counseling: I had a detailed discussion with the patient and/or guardian regarding: the kb historical points, exam findings, and any diagnostic results supporting the discharge/admit diagnosis, lab results, radiology results, the need for outpatient follow up, a urologist, to return to the emergency department if symptoms worsen or persist or if there are any questions or concerns that arise at home. ED course: Pt aware of colovesical fistula. States he has seen a surgeon and is planning to have surgery, but is waiting to meet his deductible. . 09/26 08:09 Order name: Urine Microscopic Only; Complete Time: 08:56 kb 0808 08:09 Order name: Basic Metabolic Panel; Complete Time: 08:56 kb 08 08:09 Order name: CBC with Diff; Complete Time: 09:20 kb 08 08:09 Order name: Hepatic Function; Complete Time: 08:56 kb 08 08:09 Order name: Lipase; Complete Time: 08:56 kb 08 08:25 Order name: Urine Dipstick-Ancillary; Complete Time: 08:25 EDMS 09/26 08:09 Order name: Urine Dipstick-Ancillary (obtain specimen); Complete Time: 08:24 kb 09/26 08:09 Order name: IV Saline Lock; Complete Time: 08:14 kb 09/26 08:09 Order name: Labs collected and sent; Complete Time: 08:14 kb 09/26 08:09 Order name: CT Abd/Pelvis - IV Contrast Only; Complete Time: 09:11 kb 09/26 08:50 Order name: CREATININE WHOLE BLOOD; Complete Time: 08:56 EDMS 09/26 08:54 Order name: Urine Culture EDMS Administered Medications: 09:45 Drug: Cipro (ciprofloxacin) 500 mg Route: PO; aa5 09:46 Follow up: Response: Medication administered at discharge. aa5 Disposition: 09/27 07:40 Co-signature as Attending Physician, Kye Aiken MD I agree with the assessment and devin plan of care. Disposition Summary: 09/26/20 09:26 Discharge Ordered Location: Home kb Condition: Stable kb Diagnosis - UTI/ Urinary tract infection, site not specified kb - Colovesical Fistula kb Followup: kb - With: Emergency Department - When: As needed - Reason: Worsening of condition Followup: kb - With: Private Physician - When: 2 - 3 days - Reason: Recheck today's complaints, Continuance of care, Re-evaluation by your physician Discharge Instructions: - Discharge Summary Sheet kb - Urinary Tract Infection, Adult, [id number] kb Forms: - Medication Reconciliation Form kb - Thank You Letter kb - Antibiotic Education kb - Prescription Opioid Use kb - Work release form iw Prescriptions: - Cipro 500 mg Oral Tablet - take 1 tablet by ORAL route every 12 hours for 10 days; 20 tablet; Refills: 0, kb Product Selection Permitted Signatures: Dispatcher [employer] EDMS Portia Yi, JOVANY-C JOVANY-Kye Bolden MD MD cha Williams, Irene, RN RN iw Calderon, Audri, RN RN aa5 Corrections: (The following items were deleted from the chart) 09/26 09:26 09:24 ED course: Pt aware of colovesicular fistula. States he has seen a surgeon and is kb planning to have surgery, but is waiting to meet his deductible. . kb
[2020-09-26 09:54] VITALS: BP 151/80; TEMP 98.1; O2SAT 98
[2020-09-26] MEDS ORDERED: CIPROFLOXACIN HCL 500 MG TAB ONE (09:56)
== END 2020-09-26 09:46 | disposition home or self-care (01) ==
LOC: ER 07:59
DX: N39.0 Urinary tract infection, site not specified (principal); N32.1 Vesicointestinal fistula
CPT/HCPCS: 87088; 85025; 87086; 80048; 36415; 82565; 80076; 83690; 74177; 99284; Q9967; 81003; 81015; 87077; 87186

== ENCOUNTER 2020-11-12 10:37 | Emergency (ER) | payer BC ==
--- NOTE | 2020-11-12 11:42 | RAD REPORT ---
EXAM DESCRIPTION: CT - Abdomen Pelvis W Contrast - 11/12/2020 11:17 am CLINICAL HISTORY: Abdominal pain COMPARISON: September 2020 TECHNIQUE: Computed axial tomography of the abdomen pelvis was obtained. 100 cc Isovue-300 was admin istered intravenously. Oral contrast was not requested which limits evaluation of bowel. All CT scans are performed using dose optimization technique as appropriate and may include automated exposure control or mA/KV adjustment according to patient size. FINDINGS: The liver, spleen, pancreas, adrenal and kidneys appear unremarkable. The wall of several loops of small bowel is thickened. Diverticula stem from the colon. Minimal stranding within the adjacent fat. No air within the bladder . Bladder wall is not thickened. A diverticulum extends from the inferior aspect of the sigmoid and a buts the superior aspect of the bladder Small inguinal hernias contain fat. Normal appendix IMPRESSION: Wall of several loops of small bowel thickened which may indicate an enteritis Minimal sigmoid diverticulitis A diverticulum extends from the inferior aspect of the sigmoid and abuts the superior aspect of the b ladder. Given the previous bouts of inflammation involving the sigmoid colon and bladder with air in the bladder this probably indicates a fistula
[2020-11-12 11:53] LABS: ALT/SGPT 26 U/L (12-78); AST/SGOT 11 U/L (15-37); Albumin 3.7 g/dL (3.4-5.0); Alkaline Phosphatase 97 U/L (45-117); BUN Blood Urea Nitrogen 10 mg/dL (7-18); Bicarbonate 26 mmol/L (21-32); Bilirubin Direct 0.1 mg/dL (0-0.2); Bilirubin Total 0.7 mg/dL (0.2-1.0); Glucose Level 106 mg/dL (74-106); Lipase 67 U/L (73-393); Potassium 3.6 mmol/L (3.5-5.1); Sodium Level 139 mmol/L (136-145)
[2020-11-12 12:20] LABS: Absolute Lymphocytes (CBC) 1.2 K/uL (0.7-4.9); Basophils % 0.2 % (0-1.3); Lymphocytes % 15.9 % (15.3-44.8); MPV 6.5 fL (7.6-11.3)
--- NOTE | 2020-11-12 12:33 | ER ---
Nurse's Notes [facility] Name: Pancho Fischer Age: 60 yrs Sex: Male : 1960 Arrival Date: 11/12/2020 Time: 10:41 Bed 30 Private MD: Hemanth Santizo E Diagnosis: Diverticulitis of intestine, part unspecified, without perforation or abscess without bleeding Presentation: 11/12 10:42 Chief complaint: Patient states: abdominal pain started yesterday 11/11/20. Pain is ap3 located primarily in the center of the abdomen, but is also on the lower left. Coronavirus screen: At this time, the client does not indicate any symptoms associated with coronavirus-19. Ebola Screen: No symptoms or risks identified at this time. Initial Sepsis Screen: Does the patient meet any 2 criteria? No. Patient's initial sepsis screen is negative. Does the patient have a suspected source of infection? No. Patient's initial sepsis screen is negative. Risk Assessment: Do you want to hurt yourself or someone else? Patient reports no desire to harm self or others. Onset of symptoms was November 11, 2020. 10:42 Method Of Arrival: Ambulatory ap3 10:42 Acuity: MELI 3 ap3 Triage Assessment: 10:46 General: Appears in no apparent distress. comfortable, Behavior is calm, cooperative, ap3 appropriate for age. Pain: Complains of pain in right lower quadrant and left lower quadrant Pain radiates to anterior aspect of left lateral abdomen and anterior aspect of right lateral abdomen Pain currently is 5 out of 10 on a pain scale. Is continuous, Alleviated by rest, Aggravated by laying on his sides. Neuro: Level of Consciousness is awake, alert, obeys commands, Oriented to person, place, time, situation, Appropriate for age. Respiratory: Airway is patent Respiratory effort is even, unlabored, Respiratory pattern is regular, symmetrical. GI: patients last BM 11/11 and states it was normal for him. Historical: - Allergies: 10:45 No Known Allergies; ap3 - Home Meds: 10:45 Breo Ellipta 100-25 mcg/dose inhalation dsdv 1 puff as needed [Active]; ap3 - PMHx: 10:45 Asthma; Diverticulitis; High Cholesterol; sinus infection; ap3 - PSHx: 10:45 None; ap3 - Immunization history:: Client reports having NOT received the Covid vaccine. - Social history:: Smoking status: Patient denies any tobacco usage or history of. Patient uses alcohol, occasionally. Screenin:48 Abuse screen: Denies threats or abuse. Nutritional screening: No deficits noted. ap3 Tuberculosis screening: No symptoms or risk factors identified. Fall Risk None identified. Assessment: 11:17 GI: Abdomen is tender to palpation X 4 quads. kh1 12:33 Reassessment: Patient appears in no apparent distress at this time. No changes from 1 previously documented assessment. Patient and/or family updated on plan of care and expected duration. Pain level reassessed. Patient is alert, oriented x 3, equal unlabored respirations, skin warm/dry/pink. GI: No deficits noted. Bowel sounds present X 4 quads. Reports lower abdominal pain, upper abdominal pain. Vital Signs: 10:42 BP 150 / 73; Pulse 81; Temp 98.8; Pulse Ox 99% ; Weight 73.94 kg; Height 5 ft. 6 in. ap3 (167.64 cm); Pain 5/10; 11:18 BP 150 / 73; Pulse 81; Resp 18; Temp 98.8; Pulse Ox 99% on R/A; kh1 12:34 BP 122 / 71; Pulse 88; Resp 18 S; Pulse Ox 96% on R/A; kh1 10:42 Body Mass Index 26.31 (73.94 kg, 167.64 cm) ap3 ED Course: 10:41 Patient arrived in ED. mr 10:41 Hemanth Santizo MD is Private Physician. mr 10:45 Triage completed. ap3 10:48 [facility]C [facility]. kb 10:48 William De Paz MD is Attending Physician. kb 10:58 Yoselin Soni is Primary Nurse. kh1 11:15 Basic Metabolic Panel Sent. kh1 11:15 CBC with Diff Sent. kh1 11:15 Hepatic Function Sent. kh1 11:15 Lipase Sent. kh1 11:16 No provider procedures requiring assistance completed. Inserted saline lock: 20 gauge kh1 in left antecubital area, using aseptic technique. Blood collected. 11:16 Patient has correct armband on for positive identification. Bed in low position. Call kh1 light in reach. Side rails up X 1. fishing vessel operator on. Pulse ox on. NIBP on. 11:17 CT Abd/Pelvis - IV Contrast Only In Process Unspecified. EDMS 11:17 Arm band placed on right wrist. kh1 11:34 Basic Metabolic Panel Sent. kh1 11:34 CBC with Diff Sent. kh1 11:34 Hepatic Function Sent. kh1 11:34 Lipase Sent. kh1 13:07 IV discontinued, intact, bleeding controlled, No redness/swelling at site. Pressure kh1 dressing applied. Administered Medications: 12:47 Drug: Cipro (ciprofloxacin) 500 mg Route: PO; kh1 12:47 Drug: Flagyl (metroNIDAZOLE) 500 mg Route: PO; kh1 Outcome: 12:33 Discharge ordered by . marlo 13:06 Discharged to home ambulatory. kh1 13:06 Condition: good 13:06 Discharge instructions given to patient, Instructed on discharge instructions, follow up and referral plans. medication usage, Demonstrated understanding of instructions, follow-up care, medications. 13:46 Patient left the ED. ss Signatures: Dispatcher [employer] EDMS Portia Yi, KOJO MANZO-Flores Rodriguez Shelby, RN RN Love Khanna RN RN Yoselin Craig kh1
--- NOTE | 2020-11-12 12:33 | EDPHYS ---
Physician Documentation [facility] Name: Pancho Fischer Age: 60 yrs Sex: Male : 1960 Arrival Date: 11/12/2020 Time: 10:41 Bed 30 Private MD: Hemanth Santizo E ED Physician William De Paz HPI: 11/12 16:09 This 60 yrs old Male presents to ER via Ambulatory with complaints of kb Abdominal Pain. 16:09 The patient presents with abdominal pain in the lower abdomen. Onset: The kb symptoms/episode began/occurred yesterday. The symptoms do not radiate. Associated signs and symptoms: none. The symptoms are described as achy. Modifying factors: The symptoms are alleviated by nothing, the symptoms are aggravated by nothing. Severity of pain: At its worst the pain was mild moderate in the emergency department the pain is unchanged. The patient has not experienced similar symptoms in the past. The patient has been recently seen by a physician: a associate professor of literacy, in the office. Pt reports he was seen by his GI dr on Sunday and everything was fine. States he pushed all around his abd and he had no pain. Started having a little pain to lower abd yesterday and it has continued today. . Historical: - Allergies: 10:45 No Known Allergies; ap3 - Home Meds: 10:45 Breo Ellipta 100-25 mcg/dose inhalation dsdv 1 puff as needed [Active]; ap3 - PMHx: 10:45 Asthma; Diverticulitis; High Cholesterol; sinus infection; ap3 - PSHx: 10:45 None; ap3 - Immunization history:: Client reports having NOT received the Covid vaccine. - Social history:: Smoking status: Patient denies any tobacco usage or history of. Patient uses alcohol, occasionally. ROS: 16:09 Constitutional: Negative for fever, chills, and weight loss. kb 16:09 Abdomen/GI: Positive for abdominal pain, Negative for nausea, vomiting, and diarrhea. 16:09 All other systems are negative. Exam: 16:09 Constitutional: This is a well developed, well nourished patient who is awake, alert, kb and in no acute distress. Head/Face: Normocephalic, atraumatic. ENT: Moist Mucous membranes Cardiovascular: Regular rate and rhythm with a normal S1 and S2. No gallops, murmurs, or rubs. No pulse deficits. Respiratory: Respirations even and unlabored. No increased work of breathing, no retractions or nasal flaring. Skin: Warm, dry with normal turgor. Normal color. MS/ Extremity: Pulses equal, no cyanosis. Neurovascular intact. Full, normal range of motion. Neuro: Awake and alert, GCS 15, oriented to person, place, time, and situation. Moves all extremities. Normal gait. Psych: Awake, alert, with orientation to person, place and time. Behavior, mood, and affect are within normal limits. 16:09 Abdomen/GI: Inspection: abdomen appears normal, Bowel sounds: normal, in all quadrants, Palpation: soft, in all quadrants, mild abdominal tenderness, in the right lower quadrant and left lower quadrant. Vital Signs: 10:42 BP 150 / 73; Pulse 81; Temp 98.8; Pulse Ox 99% ; Weight 73.94 kg; Height 5 ft. 6 in. ap3 (167.64 cm); Pain 5/10; 11:18 BP 150 / 73; Pulse 81; Resp 18; Temp 98.8; Pulse Ox 99% on R/A; kh1 12:34 BP 122 / 71; Pulse 88; Resp 18 S; Pulse Ox 96% on R/A; kh1 10:42 Body Mass Index 26.31 (73.94 kg, 167.64 cm) ap3 MDM: 10:51 Patient medically screened. kb 16:09 Data reviewed: vital signs, nurses notes. Data interpreted: Pulse oximetry: on room air kb is 96 %. Interpretation: normal. Counseling: I had a detailed discussion with the patient and/or guardian regarding: the historical points, exam findings, and any diagnostic results supporting the discharge/admit diagnosis, lab results, radiology results, the need for outpatient follow up, a associate professor of literacy, to return to the emergency department if symptoms worsen or persist or if there are any questions or concerns that arise at home. 11/12 10:51 Order name: Basic Metabolic Panel; Complete Time: 11:57 kb 11/12 10:51 Order name: CBC with Diff; Complete Time: 12:26 kb 11/12 10:51 Order name: Hepatic Function; Complete Time: 11:57 kb 11/12 10:51 Order name: Lipase; Complete Time: 11:57 kb 11/12 10:51 Order name: CT Abd/Pelvis - IV Contrast Only; Complete Time: 11:42 kb 11/12 10:51 Order name: IV Saline Lock; Complete Time: 11:15 kb 11/12 10:51 Order name: Labs collected and sent; Complete Time: 11:15 kb Administered Medications: 12:47 Drug: Cipro (ciprofloxacin) 500 mg Route: PO; kh1 12:47 Drug: Flagyl (metroNIDAZOLE) 500 mg Route: PO; kh1 Disposition Summary: 11/12/20 12:33 Discharge Ordered Location: Home kb Condition: Stable kb Diagnosis - Diverticulitis of intestine, part unspecified, without perforation or abscess kb without bleeding Followup: kb - With: Emergency Department - When: As needed - Reason: Worsening of condition Followup: kb - With: Private Physician - When: 2 - 3 days - Reason: Recheck today's complaints, Continuance of care, Re-evaluation by your physician Discharge Instructions: - Discharge Summary Sheet kb - Diverticulitis, [id number] kb Forms: - Medication Reconciliation Form kb - Thank You Letter kb - Antibiotic Education kb - Prescription Opioid Use kb - Work release form mt Prescriptions: - Flagyl 500 mg Oral Tablet - take 1 tablet by ORAL route every 8 hours for 10 days; 30 tablet; Refills: 0, kb Product Selection Permitted - Cipro 500 mg Oral Tablet - take 1 tablet by ORAL route every 12 hours for 10 days; 20 tablet; Refills: 0, kb Product Selection Permitted Addendum: 11/13/2020 16:59 Co-signature as Attending Physician, William De Paz MD I agree with the assessment and k plan of care. Signatures: Dispatcher [employer] Portia Garcia, REGIONAL PSYCHIATRIC DIRECTOR-C JOVANY-William Menjivar MD MD [facility] Love Silveira RN RN ap3 Yoselin Soni [facility]
[2020-11-12] MEDS ORDERED: metroNIDAZOLE 500 MG TABLET ONE (13:06)
[2020-11-12] MEDS ORDERED: AZITHROMYCIN 250 MG TAB ONE (13:06)
[2020-11-12] MEDS ORDERED: CIPROFLOXACIN HCL 500 MG TAB ONE (13:09)
[2020-11-12 13:56] VITALS: TEMP 98.8
[2020-11-12 13:59] VITALS: BP 122/71; O2SAT 96
== END 2020-11-12 13:46 | disposition home or self-care (01) ==
LOC: ER 10:37
DX: K57.32 Diverticulitis of large intestine without perforation or abscess without bleeding (principal)
CPT/HCPCS: 85025; 80048; 36415; 82565; 80076; 83690; 74177; 99284; Q9967

== ENCOUNTER 2021-05-12 14:58 | Emergency (ER) | payer BC ==
--- OUTSIDE RECORDS SUMMARY | 2021-05-12 15:01 | XMS REPORT | Continuity of Care Document ---
:1960 Author Organization [facility] t Address [address] [place] [address] [address] [place] [address] Care Team Providers Name Role Phone Santizo, E Attending Clinician Unavailable Problems This patient has no known problems. Allergies, Adverse Reactions, Alerts This patient has no known allergies or adverse reactions. Medications This patient has no known medications. Procedures This patient has no known procedures. Encounters Start End Encounter Admission Attending Care Care Encounter Source Date/Time Date/Time Type Type Clinicians Facility Department ID 2021-03-16 Outpatient Santizo, STLMLC [facility] [id number] [facility] [address] 12:25:16 Hemanth [id number] [facility] 2021-03-16 Outpatient Santizo, [facility] [id number] [facility] 12:08:30 Hemanth [id number] [facility] 2020-03-09 2020-03-09 [facility] [id number] [facility] 2020-02-05 2020-02-05 Outpatient [facility] [id number] [facility] 2020-01-14 2020-01-14 Out[facility] [id number] [facility] Results This patient has no known results.
[2021-05-12] MEDS ORDERED: IBUPROFEN 400 MG TAB ONE (15:39)
[2021-05-12 16:54] LABS: SARS-COV-2 RT PCR NEGATIVE (NEGATIVE)
--- NOTE | 2021-05-12 17:15 | EDPHYS ---
Physician Documentation [facility] Name: Pancho Fischer Age: 61 yrs Sex: Male : 1960 Arrival Date: 05/12/2021 Time: 14:59 Bed 24 Private MD: Hemanth Santizo E ED Physician William De Paz HPI: 05/12 15:30 This 61 yrs old Male presents to ER via Ambulatory with complaints of Sinus Congestion. cp 15:30 The patient or guardian reports sinus congestion, sinus pressure. Onset: The cp symptoms/episode began/occurred 2 day(s) ago. Associated signs and symptoms: Pertinent positives: fever, sore throat, cough, body aches. Historical: - Allergies: 15:09 No Known Drug Allergies; ll1 - PMHx: 15:09 Diverticulitis; Asthma; High Cholesterol; sinus infection; ll1 - PSHx: 15:09 None; ll1 - Immunization history:: Client reports having NOT received the Covid vaccine. - Social history:: Smoking status: Patient denies any tobacco usage or history of. ROS: 15:35 Constitutional: Positive for body aches, fever, Negative for poor PO intake. cp 15:35 Eyes: Negative for injury, pain, redness, and discharge. cp 15:35 ENT: Positive for sinus congestion, sore throat, Negative for drainage from ear(s), ear pain, difficulty swallowing, difficulty handling secretions. 15:35 Cardiovascular: Negative for chest pain, edema, palpitations. 15:35 Respiratory: Positive for cough, Negative for shortness of breath, wheezing. 15:35 Abdomen/GI: Negative for abdominal pain, vomiting, diarrhea, constipation. 15:35 Neuro: Negative for altered mental status, weakness. 15:35 All other systems are negative. Exam: 15:40 Constitutional: The patient appears in no acute distress, alert, awake, non-toxic, well cp developed, well nourished. 15:40 Head/face: Sinus tenderness, that is mild, is located over the right frontal sinus, cp left frontal sinus, right maxillary sinus and left maxillary sinus. 15:40 Eyes: Periorbital structures: appear normal, Conjunctiva: normal, no exudate, no injection, Lids and lashes: appear normal, bilaterally. 15:40 ENT: External ear(s): are unremarkable, Ear canal(s): are normal, clear, TM's: bulging, is not appreciated, bilaterally, dullness, bilaterally, erythema, is not appreciated, bilaterally, Nose: is normal, Mouth: Lips: moist, Oral mucosa: pink and intact, moist, Posterior pharynx: Airway: no evidence of obstruction, patent, Tonsils: are normal in appearance, erythema, is not appreciated, exudate, is not appreciated. 15:40 Neck: ROM/movement: is normal, is supple, without pain, no range of motions limitations, no meningismus. 15:40 Chest/axilla: Inspection: normal. 15:40 Cardiovascular: Rate: tachycardic, Rhythm: regular. 15:40 Respiratory: the patient does not display signs of respiratory distress, Respirations: normal, no use of accessory muscles, no retractions, labored breathing, is not present, Breath sounds: decreased breath sounds, are not appreciated, stridor, is not appreciated, + upper airway congestion. wheezing: is not appreciated. 15:40 Abdomen/GI: Inspection: abdomen appears normal, Palpation: abdomen is soft and non-tender, in all quadrants. Vital Signs: 15:07 BP 170 / 83; Pulse 106; Resp 18; Temp 100.3(O); Pulse Ox 96% on R/A; Weight 74.84 kg; ll1 Height 5 ft. 6 in. (167.64 cm); Pain 7/10; 17:50 BP 165 / 77; Pulse 86; Resp 16; Temp 98.7; Pulse Ox 98% ; Pain 0/10; cb5 15:07 Body Mass Index 26.63 (74.84 kg, 167.64 cm) ll1 MDM: 15:16 Patient medically screened. cp 17:14 Data reviewed: vital signs, nurses notes, lab test result(s). cp 17:14 Counseling: I had a detailed discussion with the patient and/or guardian regarding: the cp historical points, exam findings, and any diagnostic results supporting the discharge/admit diagnosis, lab results, to return to the emergency department if symptoms worsen or persist or if there are any questions or concerns that arise at home. Response to treatment: the patient's symptoms have mildly improved after treatment, and as a result, I will discharge patient. ED course: VSS. Patient appears non-toxic and no signs of respiratory distress. Will discharge to home for continued monitoring. 05/12 15:25 Order name: COVID-19/FLU A+B (Document "Date of Onset" if Symptomatic); Complete Time: cp 17:08 05/12 17:08 Interpretation: Reviewed. cp 05/12 15:25 Order name: Strep; Complete Time: 17:08 cp 05/12 16:11 Order name: Throat Culture EDMS Administered Medications: 15:34 Drug: Ibuprofen 800 mg Route: PO; cb5 17:25 Drug: Tamiflu (oseltamivir) 75 mg Route: PO; cb5 Disposition Summary: 05/12/21 17:14 Discharge Ordered Location: Home cp Problem: new cp Symptoms: have improved cp Condition: Stable cp Diagnosis - Influenza due to identified novel influenza A virus cp Followup: cp - With: Private Physician - When: 2 - 3 days - Reason: Worsening of condition Discharge Instructions: - Discharge Summary Sheet cp - Influenza, Adult cp Forms: - Medication Reconciliation Form cp - Thank You Letter cp - Antibiotic Education cp - Prescription Opioid Use cp Prescriptions: - Ibuprofen 800 mg Oral Tablet - take 1 tablet by ORAL route every 8 hours As needed take with food; 30 tablet; cp Refills: 0, Product Selection Permitted - Tamiflu 75 mg Oral Capsule - take 1 tablet by ORAL route every 12 hours for 5 days; 10 tablet; Refills: 0, cp Product Selection Permitted Signatures: Dispatcher [employer] Kye Coleman PA PA cp Lewis, Lynsay, RN RN ll1 Megan Fitch RN RN cb5
--- NOTE | 2021-05-12 17:15 | ER ---
Nurse's Notes [facility] Name: Pancho Fischer Age: 61 yrs Sex: Male : 1960 Arrival Date: 05/12/2021 Time: 14:59 Bed 24 Private MD: Hemanth Santizo E Diagnosis: Influenza due to identified novel influenza A virus Presentation: 05/12 15:07 Chief complaint: Patient states: Sinus congestion, drainage, ESPINOZA's since Sunday night. ll1 Coronavirus screen: Vaccine status: Patient reports being unvaccinated. Client denies travel out of the [place] in the last 14 days. congestion, cough unrelated to allergies, fatigue, fever, headache, sore throat, Client presents with at least one sign or symptom that may indicate coronavirus-19. Standard/surgical mask placed on the client. Ebola Screen: Patient denies travel to an Ebola-affected area in the 21 days before illness onset. Initial Sepsis Screen: Does the patient meet any 2 criteria? HR > 90 bpm. No. Patient's initial sepsis screen is negative. Does the patient have a suspected source of infection? Yes: Other: nasal congestion. Risk Assessment: Do you want to hurt yourself or someone else? Patient reports no desire to harm self or others. Onset of symptoms was May 10, 2021. 15:07 Method Of Arrival: Ambulatory ll1 15:07 Acuity: MELI 3 ll1 Historical: - Allergies: 15:09 No Known Drug Allergies; ll1 - PMHx: 15:09 Diverticulitis; Asthma; High Cholesterol; sinus infection; ll1 - PSHx: 15:09 None; ll1 - Immunization history:: Client reports having NOT received the Covid vaccine. - Social history:: Smoking status: Patient denies any tobacco usage or history of. Screenin:13 Abuse screen: Denies threats or abuse. Denies injuries from another. Nutritional cb5 screening: No deficits noted. Tuberculosis screening: No symptoms or risk factors identified. 17:51 Fall Risk None identified. cb5 Assessment: 15:12 General: Appears in no apparent distress. comfortable, Behavior is calm, cooperative, cb5 appropriate for age. Pain: Complains of pain in headache. Neuro: No deficits noted. Level of Consciousness is awake, alert, obeys commands, Oriented to person, place, time, situation. Cardiovascular: No deficits noted. Respiratory: No deficits noted. Respiratory: Reports nasal congestion and headache. GI: No deficits noted. : No deficits noted. EENT: No deficits noted. Derm: No deficits noted. Musculoskeletal: No deficits noted. 17:06 Reassessment: Patient and/or family updated on plan of care and expected duration. Pain cb5 level reassessed. Vital Signs: 15:07 BP 170 / 83; Pulse 106; Resp 18; Temp 100.3(O); Pulse Ox 96% on R/A; Weight 74.84 kg; ll1 Height 5 ft. 6 in. (167.64 cm); Pain 7/10; 17:50 BP 165 / 77; Pulse 86; Resp 16; Temp 98.7; Pulse Ox 98% ; Pain 0/10; cb5 15:07 Body Mass Index 26.63 (74.84 kg, 167.64 cm) ll1 ED Course: 14:59 Patient arrived in ED. am2 15:00 Hemanth Santizo MD is Private Physician. am2 15:09 Triage completed. ll1 15:09 Arm band placed on Patient placed in an exam room, on a stretcher. ll1 15:11 Megan Fitch, SAMMI is Primary Nurse. cb5 15:13 Bed in low position. Call light in reach. cb5 15:13 No provider procedures requiring assistance completed. cb5 15:15 Kye Mitchell PA is PHCP. cp 15:15 William De Paz MD is Attending Physician. cp 15:40 Strep Sent. cb5 15:40 COVID-19/FLU A+B (Document "Date of Onset" if Symptomatic) Sent. cb5 17:51 Patient did not have IV access during this emergency room visit. cb5 Administered Medications: 15:34 Drug: Ibuprofen 800 mg Route: PO; cb5 17:25 Drug: Tamiflu (oseltamivir) 75 mg Route: PO; cb5 Outcome: 17:14 Discharge ordered by MD. cp 17:51 Discharged to home cb5 17:51 Condition: stable 17:51 Discharge instructions given to patient. 17:52 Patient left the ED. cb5 Signatures: Kye Mitchell PA PA cp Moreno, Amanda am2 Yoselin Andrade RN RN [facility] Megan Fitch, SAMMI RN cb5
[2021-05-12] MEDS ORDERED: OSELTAMIVIR 75 MG CAP ONE (17:27)
[2021-05-12 18:52] VITALS: BP 165/77; TEMP 98.7; O2SAT 98
== END 2021-05-12 17:52 | disposition home or self-care (01) ==
LOC: ER 14:58
DX: J10.1 Influenza due to other identified influenza virus with other respiratory manifestations (principal); Z20.822 Contact with and (suspected) exposure to COVID-19; E78.00 Pure hypercholesterolemia, unspecified
CPT/HCPCS: 87070; 87081; 0240U; 99283

== ENCOUNTER 2022-05-09 15:34 | Inpatient (IN) | payer BC ==
--- NOTE | 2022-05-09 16:23 | RAD REPORT ---
EXAM DESCRIPTION: RAD - Chest Single View - 05/09/2022 4:13 pm CLINICAL HISTORY: FEVER Chest pain. COMPARISON: Chest Pa And Lat (2 Views) dated 04/08/2016; ABDOMEN ACUTE SERIES dated 02/01/2015; CHEST SINGLE VIEW dated 10/30/2014; CHEST PA AND LAT 2 VIEW dated 07/29/2010 FINDINGS: Portable technique limits examination quality. The lungs are grossly clear. The heart is normal in size. No displaced fractures. IMPRESSION: No acute intrathoracic process suspected.
[2022-05-09 16:47] LABS: Absolute Lymphocytes (CBC) 1.3 K/uL (0.7-4.9); Hematocrit 39.5 % (39.6-49.0); Lymphocytes % 6.5 % (15.3-44.8); MCV 86.9 fL (80-100); MPV 6.5 fL (7.6-11.3); RBC Red Blood Cell Count 4.55 M/uL (4.33-5.43)
[2022-05-09 16:53] LABS: Protime INR 1.3
[2022-05-09] MEDS ORDERED: Levofloxacin 750mg IV 750 MG/150 ML BAG IV ONE (16:57)
[2022-05-09] MEDS ORDERED: CEFTRIAXONE 2000 MG/VIAL ONE (16:57)
[2022-05-09] MEDS ORDERED: NA CHLORIDE 0.9% 2,000 ML ONE (16:58)
--- NOTE | 2022-05-09 17:23 | RAD REPORT ---
EXAM DESCRIPTION: CT - Stone Protocol - 05/09/2022 5:09 pm CLINICAL HISTORY: Flank pain. Pain;Pyelonephritis;Flank pain COMPARISON: Abdomen Pelvis W Contrast dated 11/12/2020 TECHNIQUE: Axial images were obtained without oral or IV contrast. Lack of contrast limits solid org an and vascular assessment. The [id number] spans the entirety of the system partially obscuring uppermost abdomen and lung bases. Coronal reformatted images were obtained and reviewed. All CT scans are performed using dose optimization technique as appropriate and may include automated exposure control or mA/KV adjustment according to patient size. FINDINGS: The lower lung stern are clear. Imaged portions of the liver and spleen show no suspicious findings on non-contrast imaging. The panc reas and adrenal glands are normal. No pathologic lymphadenopathy in the abdomen or pelvis. No urinary tract stones or obstructive uropathy. The left kidney appears enlarged and mildly inflamed compatible with pyelonephritis. No bowel obstruction, free air, free fluid or abscess. Normal appendix noted.Short segment of sigmoid colon in the pelvis measuring about 4 cm demonstrates numerous diverticula. Mild surrounding inflamm ation. No significant bony abnormality. IMPRESSION: Left-sided pyelonephritis findings are present without abscess. Short-segment inflammation is seen involving the sigmoid colon in the pelvis. This may be acute diver ticulitis. Given that malignancy can have a similar appearance, direct visualization follow-up colono scopy is recommended.
[2022-05-09 17:25] LABS: Potassium 3.6 mEq/L (3.5-5.1)
[2022-05-09 17:26] LABS: Albumin 3.3 g/dL (3.4-5.0); Bilirubin Direct 0.4 mg/dL (0-0.2); Bilirubin Total 1.4 mg/dL (0.2-1.0); Troponin High Sensitivity 9.3 (<58.9)
[2022-05-09] MEDS ORDERED: METRONIDAZOLE 500mg IVPB 500 MG/100 ML BAG IV ONE (17:33)
--- NOTE | 2022-05-09 17:35 | ER ---
Nurse's Notes [facility] Name: Pancho Fischer Age: 62 yrs Sex: Male : 1960 Arrival Date: 05/09/2022 Time: 15:52 Bed 5 Private MD: Diagnosis: Pyelonephritis acute;UTI/ Urinary tract infection, site not specified;Fever, unspecified;Acute prostatitis;Weakness;Elevated white blood cell count Presentation: 05/09 15:52 Chief complaint: Patient states: fever, chills, UTI symptoms, lower abd pain X 5 days, iw not eating, weakness. Coronavirus screen: Client presents with at least one sign or symptom that may indicate coronavirus-19. Ebola Screen: Patient negative for fever greater than or equal to 101.5 degrees Fahrenheit, and additional compatible Ebola Virus Disease symptoms Patient denies exposure to infectious person. Patient denies travel to an Ebola-affected area in the 21 days before illness onset. No symptoms or risks identified at this time. Initial Sepsis Screen: Does the patient meet any 2 criteria? HR > 90 bpm. Does the patient have a suspected source of infection? Yes: Dysuria/Frequency/Urgency/UTI. Risk Assessment: Do you want to hurt yourself or someone else? Patient reports no desire to harm self or others. Onset of symptoms was May 04, 2022. 15:52 Method Of Arrival: EMS: [facility] iw 15:52 Acuity: MELI 3 iw 15:56 Care prior to arrival: Medication(s) given: Tylenol, 975 mg. iw Historical: - Allergies: 15:54 No Known Allergies; iw - PMHx: 15:54 Asthma; Diverticulitis; High Cholesterol; sinus infection; iw - Immunization history:: Adult Immunizations unknown. - Social history:: Smoking status: Patient denies any tobacco usage or history of. Screenin:43 [facility] ED Fall Risk Assessment (Adult) Score/Fall Risk Level 0 - 2 = Low Risk hb Oriented to surroundings, Maintained a safe environment, Educated pt \T\ family on fall prevention, incl call for assistance when getting out of bed. Abuse screen: Denies threats or abuse. Denies injuries from another. Nutritional screening: No deficits noted. Tuberculosis screening: No symptoms or risk factors identified. Assessment: 16:43 General: Appears in no apparent distress. Behavior is calm, cooperative. Pain: Pain hb currently is 4 out of 10 on a pain scale. Neuro: Level of Consciousness is awake, alert, obeys commands, Oriented to person, place, time, situation. Cardiovascular: Patient's skin is warm and dry. Respiratory: Respiratory effort is even, unlabored, Respiratory pattern is regular, symmetrical. GI: Reports nausea. : Reports burning with urination, suprapubic pain that radiates to bilateral flanks and mid back. EENT: No signs and/or symptoms were reported regarding the EENT system. Derm: Skin is pink, warm \T\ dry. Musculoskeletal: No signs and/or symptoms reported regarding the musculoskeletal system. 19:15 General: Appears in no apparent distress. comfortable, well groomed, well developed, pf1 Behavior is calm, cooperative, quiet. 19:15 Pain: Denies pain. Neuro: No deficits noted. Level of Consciousness is awake, alert, pf1 obeys commands, Oriented to person, place, time, situation. Cardiovascular: No deficits noted. Capillary refill < 3 seconds Patient's skin is warm and dry. Respiratory: Airway is patent Respiratory effort is even, unlabored, Respiratory pattern is regular, symmetrical, Breath sounds are clear bilaterally. GI: No deficits noted. No signs and/or symptoms were reported involving the gastrointestinal system. : Reports burning with urination, urinary frequency, since 2 days. EENT: No deficits noted. No signs and/or symptoms were reported regarding the EENT system. Derm: No deficits noted. No signs and/or symptoms reported regarding the dermatologic system. Skin is pink, warm \T\ dry. 20:25 General: attempt patient report, nurse to call back. pf1 20:26 Reassessment: Patient appears in no apparent distress at this time. No changes from pf1 previously documented assessment. Patient and/or family updated on plan of care and expected duration. Pain level reassessed. Patient states symptoms have improved. Vital Signs: 15:52 BP 98 / 59; Pulse 107; Resp 18; Temp 98.7; Pulse Ox 97% on R/A; Weight 79.38 kg; Height iw 5 ft. 6 in. ; Pain 4/10; 17:59 BP 109 / 73; Pulse 88; Pulse Ox 94% on R/A; ap3 19:00 BP 119 / 64; Pulse 84; Resp 16; Pulse Ox 100% on R/A; Pain 0/10; pf1 20:26 BP 119 / 72; Pulse 85; Resp 16; Temp 98.5; Pulse Ox 98% on R/A; Pain 0/10; pf1 15:52 Body Mass Index 28.25 (79.38 kg, 167.64 cm) iw 15:52 Pain Scale: Adult iw 19:00 Pain Scale: Adult pf1 20:26 Pain Scale: Adult pf1 ED Course: 15:52 Patient arrived in ED. iw 15:54 Triage completed. iw 15:54 Arm band placed on. iw 15:57 Kye Aiken MD is Attending Physician. devin 16:16 XRAY Chest (1 view) In Process Unspecified. EDMS 16:33 Bri Michaud, RN is Primary Nurse. ph 16:34 Inserted saline lock: 20 gauge in right antecubital area, using aseptic technique. hb Blood collected. 17:11 CT Stone Protocol In Process Unspecified. EDMS 17:33 Raul Lock is Hospitalizing Provider. devin 17:42 Patient has correct armband on for positive identification. Bed in low position. Call ph light in reach. Side rails up X 1. Pulse ox on. NIBP on. 19:31 No provider procedures requiring assistance completed. Patient admitted, IV remains in ph place. Administered Medications: 16:45 Drug: NS 0.9% IV 1000 ml Route: IV; Rate: 1 bolus; Site: right antecubital; ph 19:30 Follow up: Response: No adverse reaction; IV Status: Completed infusion; IV Intake: ph 1000ml 17:45 Drug: NS 0.9% IV 1000 ml Route: IV; Rate: 1 bolus; Site: right antecubital; ph 19:30 Follow up: Response: No adverse reaction; IV Status: Completed infusion; IV Intake: ph 1000ml 17:52 Drug: Rocephin IV 2 grams Route: IV; Rate: per protocol; Site: right antecubital; ph 19:30 Follow up: Response: No adverse reaction; IV Status: Completed infusion ph 17:53 Drug: levofloxacin IVPB 750 mg Volume: 150 ml; Route: IVPB; Infused Over: 90 mins; ph Site: right antecubital; 19:30 Follow up: Response: No adverse reaction; IV Status: Completed infusion ph 18:54 Drug: NS 0.9% IV 1000 ml Route: IV; Rate: 125 ml/hr; Site: right antecubital; ph 19:30 Follow up: IV Status: Infusion continued upon admission ph 19:30 Drug: metroNIDAZOLE IVPB 500 mg Volume: 100 ml; Route: IVPB; Rate: 200 ml/hr; Infused pf1 Over: 30 mins; Site: right antecubital; 20:00 Follow up: IV Status: Completed infusion; IV Intake: 100ml pf1 Medication: 17:42 VIS not applicable for this client. ph Intake: 19:30 IV: 1000ml; Total: 1000ml. ph 19:30 IV: 1000ml; Total: 2000ml. ph 20:00 IV: 100ml; Total: 2100ml. pf1 Outcome: 17:34 Decision to Hospitalize by Provider. devin 20:49 Admitted to Med/surg accompanied by tech, via wheelchair, room 224, with chart, Report pf1 called to SAMMI Ruiz, patient given by SUPA Rosen 20:49 Condition: stable 20:49 Instructed on the need for admit, Demonstrated understanding of instructions. 20:50 Patient left the ED. pf1 Signatures: Dispatcher [employer] EDMS Kye Aiken MD MD cha Williams, Irene, RN RN iw Bri Michaud RN RN ph Meghann Shelley RN RN Love Silveira RN RN ap3 Colleen pineda RN RN pf1 Corrections: (The following items were deleted from the chart) 15:55 15:52 Pulse 107bpm; Resp 18bpm; Pulse Ox 97% RA; Temp 98.7F; 79.38 kg; Height 5 ft. 6 iw in.; BMI: 28.2; Pain 4/10, Adult; iw
--- NOTE | 2022-05-09 17:35 | EDPHYS ---
Physician Documentation [facility] Name: Pancho Fischer Age: 62 yrs Sex: Male : 1960 Arrival Date: 05/09/2022 Time: 15:52 Bed 5 Private MD: ED Physician Kye Aiken HPI: 05/09 17:25 This 62 yrs old Male presents to ER via EMS with complaints of Fever, Pain devin With Urination. 17:25 The patient reports fever, that was measured at 101 degrees Fahrenheit. Onset: The devin symptoms/episode began/occurred 2 day(s) ago. Modifying factors: there are no obvious modifying factors. Associated signs and symptoms: Pertinent positives: backache. Severity of symptoms: At their worst the symptoms were mild moderate in the emergency department the symptoms are unchanged. The patient has not experienced similar symptoms in the past. Historical: - Allergies: 15:54 No Known Allergies; iw - PMHx: 15:54 Asthma; Diverticulitis; High Cholesterol; sinus infection; iw - Immunization history:: Adult Immunizations unknown. - Social history:: Smoking status: Patient denies any tobacco usage or history of. ROS: 17:26 Eyes: Negative for injury, pain, redness, and discharge, ENT: Negative for injury, devin pain, and discharge, Neck: Negative for injury, pain, and swelling, Cardiovascular: Negative for chest pain, palpitations, and edema, Respiratory: Negative for shortness of breath, cough, wheezing, and pleuritic chest pain, Abdomen/GI: Negative for abdominal pain, nausea, vomiting, diarrhea, and constipation, Back: Negative for injury and pain, MS/Extremity: Negative for injury and deformity, Skin: Negative for injury, rash, and discoloration, Neuro: Negative for headache, weakness, numbness, tingling, and seizure, Psych: Negative for depression, anxiety, suicide ideation, homicidal ideation, and hallucinations, Allergy/Immunology: Negative for hives, rash, and allergies, Endocrine: Negative for neck swelling, polydipsia, polyuria, polyphagia, and marked weight changes, Hematologic/Lymphatic: Negative for swollen nodes, abnormal bleeding, and unusual bruising. 17:26 Constitutional: Positive for body aches, chills, fatigue, fever, malaise. 17:26 Back: Positive for pain at rest, flank pain, on the left. 17:26 : Positive for urinary symptoms, flank pain, urinary frequency, burning with urination. Exam: 17:26 Head/Face: Normocephalic, atraumatic. Eyes: Pupils equal round and reactive to light, devin extra-ocular motions intact. Lids and lashes normal. Conjunctiva and sclera are non-icteric and not injected. Cornea within normal limits. Periorbital areas with no swelling, redness, or edema. ENT: Nares patent. No nasal discharge, no septal abnormalities noted. Tympanic membranes are normal and external auditory canals are clear. Oropharynx with no redness, swelling, or masses, exudates, or evidence of obstruction, uvula midline. Mucous membranes moist. Neck: Trachea midline, no thyromegaly or masses palpated, and no cervical lymphadenopathy. Supple, full range of motion without nuchal rigidity, or vertebral point tenderness. No Meningismus. Chest/axilla: Normal chest wall appearance and motion. Nontender with no deformity. No lesions are appreciated. Cardiovascular: Regular rate and rhythm with a normal S1 and S2. No gallops, murmurs, or rubs. Normal PMI, no JVD. No pulse deficits. Respiratory: Lungs have equal breath sounds bilaterally, clear to auscultation and percussion. No rales, rhonchi or wheezes noted. No increased work of breathing, no retractions or nasal flaring. Abdomen/GI: Soft, non-tender, with normal bowel sounds. No distension or tympany. No guarding or rebound. No evidence of tenderness throughout. Back: No spinal tenderness. No costovertebral tenderness. Full range of motion. Male : Normal genitalia with no discharge or lesions. Skin: Warm, dry with normal turgor. Normal color with no rashes, no lesions, and no evidence of cellulitis. MS/ Extremity: Pulses equal, no cyanosis. Neurovascular intact. Full, normal range of motion. Neuro: Awake and alert, GCS 15, oriented to person, place, time, and situation. Cranial nerves II-XII grossly intact. Motor strength 5/5 in all extremities. Sensory grossly intact. Cerebellar exam normal. Normal gait. Psych: Awake, alert, with orientation to person, place and time. Behavior, mood, and affect are within normal limits. 17:26 Cardiovascular: Rate: tachycardic, actual rate is 107 bpm, Rhythm: regular, Pulses: no pulse deficits are appreciated, Heart sounds: normal, normal S1and S2, no S3 or S4, no murmur, no rub, no gallop, murmur, not appreciated, rub, not appreciated, gallop, not appreciated, Edema: is not appreciated, JVD: is not appreciated. Vital Signs: 15:52 BP 98 / 59; Pulse 107; Resp 18; Temp 98.7; Pulse Ox 97% on R/A; Weight 79.38 kg; Height iw 5 ft. 6 in. ; Pain 4/10; 17:59 BP 109 / 73; Pulse 88; Pulse Ox 94% on R/A; ap3 19:00 BP 119 / 64; Pulse 84; Resp 16; Pulse Ox 100% on R/A; Pain 0/10; pf1 20:26 BP 119 / 72; Pulse 85; Resp 16; Temp 98.5; Pulse Ox 98% on R/A; Pain 0/10; pf1 15:52 Body Mass Index 28.25 (79.38 kg, 167.64 cm) iw 15:52 Pain Scale: Adult iw 19:00 Pain Scale: Adult pf1 20:26 Pain Scale: Adult pf1 MDM: 15:57 Patient medically screened. devin 17:28 Differential diagnosis: nephrolithiasis, pyelonephritis, UTI, diverticulitis, devin pancreatitis, nonspecific abdominal pain, viral Infection, bacterial infection, URI, UTI. Data reviewed: vital signs, nurses notes, EMS record, lab test result(s), EKG, radiologic studies, CT scan, plain films. Consideration of Admission/Observation Patient was admitted/placed on observation. Escalation of care including admission/observation considered. I considered the following discharge prescriptions or medication management in the emergency department Medications were administered in the Emergency Department. See MAR. Test considered but Not performed: CT: NO IV CONTRAST. Care significantly affected by the following chronic conditions: Obesity, ASTHMA, DIVERTICULITIS, HIGH CHOLESTEROL, SINUS INF. Counseling: I had a detailed discussion with the patient and/or guardian regarding: the historical points, exam findings, and any diagnostic results supporting the discharge/admit diagnosis, lab results, radiology results, the need for further work-up and treatment in the hospital. 05/09 16:00 Order name: Basic Metabolic Panel; Complete Time: 18:19 devin 05/09 16:00 Order name: CBC with Diff; Complete Time: 18:19 [facility] 05/09 16:00 Order name: LFT's; Complete Time: 18:19 [facility] 05/09 16:00 Order name: Magnesium; Complete Time: 18:19 [facility] 05/09 16:00 Order name: NT PRO-BNP; Complete Time: 18:19 [facility] 05/09 16:00 Order name: PT-INR; Complete Time: 17:23 [facility] 05/09 17:23 Interpretation: Abnormal. [facility] 05/09 16:00 Order name: Troponin HS; Complete Time: 18:19 [facility] 05/09 16:00 Order name: Lactate w/ 2H reflex if indic.; Complete Time: 18:19 [facility] 05/09 16:00 Order name: Blood Culture Adult (2) [facility] 05/09 16:00 Order name: Urinalysis w/ reflexes; Complete Time: 20:04 [facility] 05/09 16:00 Order name: Urine Culture [facility] 05/09 16:00 Order name: Lipase; Complete Time: 18:19 [facility] 05/09 18:08 Order name: Manual Differential; Complete Time: 18:19 EDMS 05/09 18:20 Order name: SARS-COV-2 Antigen Rapid; Complete Time: 19:30 sb4 05/09 16:00 Order name: XRAY Chest (1 view); Complete Time: 17:23 [facility] 05/09 16:00 Order name: CT Stone Protocol; Complete Time: 17:24 [facility] 05/09 16:00 Order name: EKG; Complete Time: 16:01 [facility] 05/09 16:00 Order name: Cardiac monitoring; Complete Time: 17:41 [facility] 05/09 16:00 Order name: EKG - Nurse/Tech; Complete Time: 18:55 [facility] 05/09 16:00 Order name: IV Saline Lock; Complete Time: 17:41 [facility] 05/09 16:00 Order name: Labs collected and sent; Complete Time: 17:41 [facility] 05/09 16:00 Order name: O2 Per Protocol; Complete Time: 16:33 [facility] 05/09 16:00 Order name: O2 Sat Monitoring; Complete Time: 16:33 [facility] Administered Medications: 16:45 Drug: NS 0.9% IV 1000 ml Route: IV; Rate: 1 bolus; Site: right antecubital; ph 19:30 Follow up: Response: No adverse reaction; IV Status: Completed infusion; IV Intake: ph 1000ml 17:45 Drug: NS 0.9% IV 1000 ml Route: IV; Rate: 1 bolus; Site: right antecubital; ph 19:30 Follow up: Response: No adverse reaction; IV Status: Completed infusion; IV Intake: ph 1000ml 17:52 Drug: Rocephin IV 2 grams Route: IV; Rate: per protocol; Site: right antecubital; ph 19:30 Follow up: Response: No adverse reaction; IV Status: Completed infusion ph 17:53 Drug: levofloxacin IVPB 750 mg Volume: 150 ml; Route: IVPB; Infused Over: 90 mins; ph Site: right antecubital; 19:30 Follow up: Response: No adverse reaction; IV Status: Completed infusion ph 18:54 Drug: NS 0.9% IV 1000 ml Route: IV; Rate: 125 ml/hr; Site: right antecubital; ph 19:30 Follow up: IV Status: Infusion continued upon admission ph 19:30 Drug: metroNIDAZOLE IVPB 500 mg Volume: 100 ml; Route: IVPB; Rate: 200 ml/hr; Infused pf1 Over: 30 mins; Site: right antecubital; 20:00 Follow up: IV Status: Completed infusion; IV Intake: 100ml pf1 Disposition Summary: 05/09/22 17:34 Hospitalization Ordered Hospitalization Status: Inpatient Admission devin Provider: Raul Lock cha Location: [facility] ([facility] devin Condition: Fair devin Problem: new devin Symptoms: have improved devin Bed/Room Type: Standard [facility] Room Assignment: 224(05/09/22 19:42) cg Diagnosis - Pyelonephritis acute devin - UTI/ Urinary tract infection, site not specified devin - Fever, unspecified devin - Acute prostatitis devin - Weakness devin - Elevated white blood cell count devin Forms: - Medication Reconciliation Form devin - SBAR form devin Signatures: Dispatcher [employer] Kye Vazquez MD MD cha Williams, Irene, RN RN iw Hall, Patricia, RN RN ph Garcia, Cindy, RN RN cg Brown, Sophia, PA-C PA-C sb4 Colleen pineda RN RN pf1 Corrections: (The following items were deleted from the chart) 19:42 17:34 devin cg
[2022-05-09 18:16] LABS: Blood Morphology Comment NOT SEEN (NOT SEEN); Platelet Estimate ADEQ
[2022-05-09 19:14] LABS: SARS-CoV-2 Antigen Rapid Res Negative (Negative)
--- NOTE | 2022-05-09 19:30 | P.HP ---
Certification for Inpatient Patient admitted to: Inpatient With expected LOS: <2 Midnights Patient will require the following post-hospital care: None Practitioner: I am a practitioner with admitting privileges, knowledge of patient current condition, hospital course, and medical plan of care. Services: Services provided to patient in accordance with Admission requirements found in Title 42 Section 412.3 of the Code of Federal Regulations Patient History Date of Service: 05/09/22 Primary Care Provider: Reji Rashid Reason for admission: Pyelonephritis, Diverticulitis History of Present Illness: Patient is a 62-year-old male with past medical history of asthma, hyperlipidemia, and colovesical fistula who presented to the emergency department via EMS with complaints of abdominal pain, nausea, fever, UTI symptoms, decreased appetite for 1 week now. He was found to have a sodium of 129, creatinine 1.32, WBC 20 with left shift, 84 segs, 4 bands, T. bili 1.4, lactate WNL. Urine extremely turbid with LE, RBC, WBC, blood. CT abdomen pelvis showed "Left-sided pyelonephritis findings are present without abscess. Short-segment inflammation is seen involving the sigmoid colon in the pelvis. This may be acute diverticulitis. Given that malignancy can have a similar appearance, direct visualization follow-up colonoscopy is recommended." He was given Rocephin, Flagyl, Levaquin, and IV fluids in the emergency department. Patient is admitted for further management. Allergies No Known Drug Allergies Allergy (Verified 01/05/20 20:43) Unknown Home medications list reviewed: Yes Home Medications: Bismuth Subsalicylate [Pepto-Bismol] 1 tab PO TID PRN 01/05/20 Calcium Carbonate [Tums] 1 tab PO TID PRN 01/05/20 Fluticasone/Vilanterol [Breo Ellipta 100-25 Mcg INH] 1 puff IH DAILY 01/05/20 Ibuprofen [Advil] 1 cap PO TID PRN 01/05/20 Simvastatin 1 tab PO BEDTIME 01/05/20 Amox/Clavulanate [Augmentin 875-125 Tab] 1 each PO BID #20 tab 01/06/20 metroNIDAZOLE [Flagyl] 500 mg PO Q8H #30 tablet 01/06/20 - Past Medical/Surgical History Diabetic: No -: Asthma -: Diverticulitis -: Urinary tract infections -: colovesical fistula -: high cholesterol Past Surgical History: Patient denies surgical history Psychosocial/ Personal History: Patient lives at home. He is . - Family History Mother -: Heart disease Father -: Stroke Notes: alzheimer's - Social History Smoking Status: Never smoker Alcohol use: Yes CD- Drugs: No Caffeine use: No Place of Residence: Home Review of Systems Gastrointestinal: Abdominal Pain, Distention Genitourinary: Dysuria, Frequency Physical Examination - Vital Signs Temperature: 98.7 F Blood Pressure: 109/73 Pulse: 88 Respirations: 18 Pulse Ox (%): 94 - Physical Exam General: Alert, In no apparent distress HEENT: Atraumatic, EOMI, Sclerae nonicteric Neck: Supple, 2+ carotid pulse no bruit Respiratory: Clear to auscultation bilaterally, Normal air movement Cardiovascular: Regular rate/rhythm, Normal S1 S2 Gastrointestinal: Normal bowel sounds, No tenderness Musculoskeletal: No tenderness Integumentary: No rashes Neurological: Normal speech, Normal affect - Studies Laboratory Data (last 24 hrs) 05/09/22 16:34: PT 14.3 H, INR 1.30 05/09/22 16:34: WBC 20.30 H, Hgb 13.3 L, Hct 39.5 L, Plt Count 252 05/09/22 16:34: Sodium 129 L, Potassium 3.6, BUN 18, Creatinine 1.32 H, Glucose 131 H, Magnesium 2.0, Total Bilirubin 1.4 H, AST 21, ALT 34, Alkaline Phosphatase 88, Lipase 15 Assessment and Plan - Problems (Diagnosis) (1) Diverticulitis of sigmoid colon Current Visit: Yes Status: Acute (2) Pyelonephritis of left kidney Current Visit: Yes Status: Acute (3) Sepsis Current Visit: Yes Status: Acute Qualifiers: Sepsis type: sepsis due to unspecified organism Sepsis acute organ dysfunction status: without acute organ dysfunction Qualified Code(s): A41.9 - Sepsis, unspecified organism (4) Hyperlipidemia Current Visit: Yes Status: Chronic Qualifiers: Hyperlipidemia type: unspecified Qualified Code(s): E78.5 - Hyperlipidemia, unspecified (5) Colovesical fistula Current Visit: Yes Status: Chronic - Plan Patient is admitted for further management of acute sigmoid diverticulitis & acute left-pyelonephritis. He does meet sepsis criteria with tachycardia, leukocytosis, and source. Continue zosyn. Previous urine culture grew Ecoli and enterobacter cloacae with sensitivity to zosyn. Follow current blood and urine cultures. Known colovesical fistula. He saw a specialist in [place] a few years ago to have an operation, but never went through with it. States he has not had as many complications from it lately as he had in the past. Continue IV hydration. Consider urology consult if patient does not improve. No recorded fever by EMS or ED. Patient reports subjective fever at home. Monitor and replete electrolytes per protocol. Reconcile and continue home medications. Discharge Plan: Home Plan to discharge in: 48 Hours - Advance Directives Does patient have a Living Will: No Does patient have a Durable POA for Healthcare: No - Code Status/Comfort Care Code Status Assessed: Yes Code Status: Full Code Physician Review: Patient Assessed, Agree with Above Assessment and Plan Critical Care: No Time Spent Managing Pts Care (In Minutes): 50
[2022-05-09 19:50] LABS: Specific Gravity 1.008 (1.005-1.030); Urine Bacteria <20 /HPF (<20); Urine Bilirubin NEGATIVE (Negative); Urine Blood 2+ (Negative); Urine Clarity Extremely Turbid (Clear); Urine Color Light-Orange (Yellow); Urine Crystals Unidentified Few /HPF (None Seen); Urine Glucose NEGATIVE (Negative); Urine Mucus Slight /HPF (None Seen); Urine Protein 1+ (Negative); Urine Urobilinogen Normal (Normal); Urine WBC Clump Few /HPF (None Seen)
[2022-05-09] MEDS ORDERED: ONDANSETRON 4 MG/2 ML VIAL IV PRN (20:35)
[2022-05-09] MEDS: NA CHLORIDE 0.9% 1,000 ML IV SCH (20:35)
[2022-05-09 22:02] VITALS: BMI 28.7
[2022-05-10] MEDS: ACETAMINOPHEN 500 MG TAB PO PRN ×3 (01:47→20:50)
[2022-05-10] MEDS: PIPER TAZO 3.375 GM in NA CHLORIDE 0.9% 100 ML IV SCH ×3 (01:48→16:06)
[2022-05-10 04:21] LABS: Absolute Lymphocytes (CBC) 0.9 K/uL (0.7-4.9); Hematocrit 35.2 % (39.6-49.0); Lymphocytes % 5.1 % (15.3-44.8); MPV 6.9 fL (7.6-11.3); RBC Red Blood Cell Count 4.05 M/uL (4.33-5.43)
[2022-05-10 04:39] LABS: Magnesium 2.1 mg/dL (1.6-2.4); Phosphorus 1.8 mg/dL (2.5-4.9); Potassium 3.3 mEq/L (3.5-5.1); Thyroid Stimulating Hormone 1.3 uIU/mL (0.358-3.740)
[2022-05-10] MEDS ORDERED: ALBUTEROL 2.5 MG/3 ML NEB SOL NEB PRN ×2 (08:06→12:00)
[2022-05-10] MEDS: POTASS/SODIUM PHOSPHATE 1 PKT POWD.PACK PO SCH ×3 (08:28→13:08)
[2022-05-10] MEDS ORDERED: FLUTICASONE IH SCH (09:00)
[2022-05-10] MEDS ORDERED: [UNRECOGNIZED DRUG - OTHER] IH SCH (09:00)
[2022-05-10] MEDS ORDERED: POTASSIUM CL SA 10 MEQ TAB PO ONE (09:00)
[2022-05-10] MEDS ORDERED: VILANTEROL IH SCH (09:00)
[2022-05-10] MEDS: NA CHLORIDE 0.9% 1,000 ML IV SCH ×3 (09:55→23:15)
--- NOTE | 2022-05-10 11:26 | P.CNS ---
Date of Consult: 05/10/22 Primary Care Provider: Reji Rashid Chief Complaint: Pyelonephritis, Diverticulitis History of Present Illness: Patient is a 62-year-old male with past medical history of asthma, hyperlipidemia, and colovesical fistula who presented to the emergency [facility] via EMS with complaints of abdominal pain, nausea, fever, UTI symptoms, decreased appetite for 1 week now. He was found to have a sodium of 129, creatinine 1.32, WBC 20 with left shift, 84 segs, 4 bands, T. bili 1.4, lactate WNL. Urine extremely turbid with LE, RBC, WBC, blood. CT abdomen pelvis showed "Left-sided pyelonephritis findings are present without abscess. Short-segment inflammation is seen involving the sigmoid colon in the pelvis. This may be acute diverticulitis. Given that malignancy can have a similar appearance, direct visualization follow-up colonoscopy is recommended." He was given Rocephin, Flagyl, Levaquin, and IV fluids in the emergency department. Patient is admitted for further management ID has been consulted for IV antibiotics recommendations and management for UTI and Bacteremia Allergies No Known Drug Allergies Allergy (Verified 01/05/20 20:43) Unknown Home Medications: Fluticasone/Vilanterol [Breo Ellipta 100-25 Mcg INH] 1 puff IH DAILY 01/05/20 Simvastatin 1 tab PO BEDTIME 01/05/20 Albuterol [Proventil] 2 puff IH PRN PRN 05/09/22 - Past Medical/Surgical History Diabetic: No -: Asthma -: Diverticulitis -: Urinary tract infections -: colovesical fistula -: high cholesterol Psychosocial/ Personal History: Patient lives at home. He is . - Family History Mother Medical History: Heart disease Father Medical History: Stroke Notes: alzheimer's - Social History Smoking Status: Current some day smoker Alcohol use: No CD- Drugs: No Caffeine use: Yes Place of Residence: Home Review of Systems 10-point ROS is otherwise unremarkable General: Other (Decreased appetite) Gastrointestinal: As per HPI Genitourinary: Other (lower abdominal pain), As per HPI Physical Examination Temp Pulse Resp BP Pulse Ox 98.2 F 68 16 123/58 L 98 05/10/22 08:00 05/10/22 08:00 05/10/22 08:00 05/10/22 08:00 05/10/22 08:00 General: Alert, In no apparent distress, Oriented x3 Respiratory: Clear to auscultation bilaterally, Normal air movement Cardiovascular: No edema, Normal S1 S2 Gastrointestinal: Normal bowel sounds Musculoskeletal: No swelling, No tenderness Integumentary: No rashes, No breakdown Neurological: Normal speech, Normal tone, Normal affect Laboratory Data (last 24 hrs) 05/09/22 16:34: PT 14.3 H, INR 1.30 05/09/22 16:34: WBC 20.30 H, Hgb 13.3 L, Hct 39.5 L, Plt Count 252 05/09/22 16:34: Sodium 129 L, Potassium 3.6, BUN 18, Creatinine 1.32 H, Glucose 131 H, Magnesium 2.0, Total Bilirubin 1.4 H, AST 21, ALT 34, Alkaline Phosphatase 88, Lipase 15 active medications Acetaminophen (Acetaminophen 500 Mg Tab) 1,000 mg PO Q6H PRN PRN Reason: Pain scale 2-4 (Mild) Last Admin: 05/10/22 01:47 Dose: 1,000 mg Albuterol Sulfate (Albuterol 2.5 Mg/3 Ml Neb [place]) 2.5 mg NEB Q4HP PRN PRN Reason: SHORTNESS OF BREATH Atorvastatin Calcium (Atorvastatin 10 Mg Tab) 10 mg PO BEDTIME [facility] Home Med (Fluticasone/Vilanterol [Breo Ellipta 100-25 Mcg Inh]) 1 puff IH DAILY [facility] Last Admin: 05/10/22 08:30 Dose: Not Given Sodium Chloride (Ns 1000 Ml Ivbag) 1,000 mls @ 75 mls/hr IV .[id number] [facility] Last Admin: 05/09/22 20:35 Dose: 1,000 mls Piperacillin Sod/Tazobactam (Sod 3.375 gm/ Sodium Chloride) 100 mls @ 25 mls/hr IV Q8HR [facility]; Protocol Last Admin: 05/10/22 08:28 Dose: 100 mls Ondansetron HCl (Ondansetron 4 Mg/2 Ml Vial) 4 mg IV Q6HP PRN PRN Reason: NAUSEA / VOMITING Sodium Chloride (Flush Normal Saline 10 Ml) 10 ml IV BID [facility] Last Admin: 05/10/22 08:30 Dose: Not Given Microbiology 05/09/22 16:34 Blood - Blood Aerobic Blood Culture - Preliminary 05/09/22 16:34 Blood - Blood Blood Culture Gram Stain - Preliminary 05/09/22 16:34 Blood - Blood Anaerobic Blood Culture - Preliminary 05/09/22 16:34 Blood - Blood Gram Stain - Preliminary Imagings Data: RAD - Chest Single View - FINDINGS: Portable technique limits examination quality. The lungs are grossly clear. The heart is normal in size. No displaced fractures. IMPRESSION: No acute intrathoracic process suspected CT - Stone Protocol - 05/09/2022 FINDINGS: The lower lung stern are clear. Imaged portions of the liver and spleen show no suspicious findings on non- contrast imaging. The pancreas and adrenal glands are normal. No pathologic lymphadenopathy in the abdomen or pelvis. No urinary tract stones or obstructive uropathy. The left kidney appears enlarged and mildly inflamed compatible with pyelonephritis. No bowel obstruction, free air, free fluid or abscess. Normal appendix noted.Short segment of sigmoid colon in the pelvis measuring about 4 cm demonstrates numerous diverticula. Mild surrounding inflammation. No significant bony abnormality. IMPRESSION: Left-sided pyelonephritis findings are present without abscess. Short-segment inflammation is seen involving the sigmoid colon in the pelvis. This may be acute diverticulitis. Given that malignancy can have a similar appearance, direct visualization follow-up colonoscopy is recommended - Problems (1) Bacteremia Plan: Cultures: - 05/09 BC: Gram Neg Rods: Pending for culture Antibiotics: - Had Ceftriaxone, Levaquin, and Flagyl - On IV Zosyn (05/09- ) Recommendations: - Continue IV Zosyn - ID will recommend antibiotics drug of choice when culture is available (2) Urinary tract infection Plan: Cultures: - 05/09 UC: Pending for culture Antibiotics: - Had Ceftriaxone, Levaquin, and Flagyl - On IV Zosyn (05/09- ) Recommendations: - Continue IV Zosyn - ID will recommend antibiotics drug of choice when culture is available Conclusions/Impression: - Bacteremia: On IV Zosyn - UTI: Pending for culture - Diverticulitis of sigmoid colon - Pyelonephritis of left kidney - Sepsis - Hyperlipidemia - Colovesical fistula ID will monitor the patient closely for signs of infection with fever and WBC trends Case has been discussed with Dr. Gonzalez N Thank you Dr. Lock for consultation
[2022-05-10] MEDS ORDERED: POTASS/SODIUM PHOSPHATE 1 PKT POWD.PACK PO SCH (12:46)
--- NOTE | 2022-05-10 15:10 | P.PN ---
Subjective Date of Service: 05/10/22 Primary Care Provider: Reji Rashid Chief Complaint: Pyelonephritis, Diverticulitis Patient reports chills. No fever. Blood culture is growing gram-negative rods. Physical Examination - Vital Signs Temperature: 98.9 F Blood Pressure: 137/60 Pulse: 89 Respirations: 18 Pulse Ox (%): 97 - Studies Laboratory Data (last 24 hrs) 05/09/22 16:34: PT 14.3 H, INR 1.30 05/09/22 16:34: WBC 20.30 H, Hgb 13.3 L, Hct 39.5 L, Plt Count 252 05/09/22 16:34: Sodium 129 L, Potassium 3.6, BUN 18, Creatinine 1.32 H, Glucose 131 H, Magnesium 2.0, Total Bilirubin 1.4 H, AST 21, ALT 34, Alkaline Phosphatase 88, Lipase 15 Assessment And Plan - Current Problems (Diagnosis) (1) Gram-negative bacteremia Current Visit: Yes Status: Acute (2) Diverticulitis of sigmoid colon Current Visit: Yes Status: Acute (3) Pyelonephritis of left kidney Current Visit: Yes Status: Acute (4) Sepsis Current Visit: Yes Status: Acute Qualifiers: Sepsis type: sepsis due to unspecified organism Sepsis acute organ dysfunction status: without acute organ dysfunction Qualified Code(s): A41.9 - Sepsis, unspecified organism (5) Colovesical fistula Current Visit: Yes Status: Chronic - Plan Physical Exam General: Alert, In no apparent distress Neck: Supple, no elevated JVD. Respiratory: Clear to auscultation bilaterally, Normal air movement Cardiovascular: Regular rate/rhythm, Normal S1 S2 Gastrointestinal: Normal bowel sounds, No tenderness, nondistended. Musculoskeletal: No tenderness Integumentary: No rashes Neurological: Normal speech, no focal motor deficit. Plan: Continue IV Zosyn. Infectious disease input appreciated. Supportive measures-antipyretics and pain management as needed. Follow cultures. Continue IV NS Clear liquid diet. Monitor CBC to follow leukocytosis. Monitor and optimize electrolytes.
[2022-05-10 16:15] VITALS: O2SAT 98
--- NOTE | 2022-05-10 17:22 | EKG ---
Test Date: 2022-05-09 Test Time: 18:43:53 Clinical Systems Educator: PH MEASUREMENT RESULTS: Intervals: Rate: 79 AK: 160 QRSD: 92 QT: 390 QTc: 447 [place]: P: 57 AK: 160 QRS: 58 T: 54 INTERPRETIVE STATEMENTS: Normal sinus rhythm Normal ECG Compared to ECG 02/01/2015 21:25:29 No significant changes Electronically Signed On 05-10-22 17:20:37 CDT by Arden Macias
[2022-05-10] MEDS: ATORVASTATIN 10 MG TAB PO SCH (20:50)
[2022-05-10] MEDS ORDERED: HOME MED 1 EA UNK (Simvastatin [Simvastatin] 20 MG Tablet) PO SCH (21:00)
[2022-05-10] MEDS: MELATONIN 5 MG TABLET PO PRN (23:03)
[2022-05-11] MEDS: PIPER TAZO 3.375 GM in NA CHLORIDE 0.9% 100 ML IV SCH ×3 (00:47→17:31)
[2022-05-11 04:21] LABS: Absolute Lymphocytes (CBC) 1.2 K/uL (0.7-4.9); Hematocrit 35.3 % (39.6-49.0); Lymphocytes % 7.8 % (15.3-44.8); MPV 7.1 fL (7.6-11.3); RBC Red Blood Cell Count 4.01 M/uL (4.33-5.43)
[2022-05-11 04:38] LABS: Phosphorus 2.3 mg/dL (2.5-4.9); Potassium 3.5 mEq/L (3.5-5.1)
--- NOTE | 2022-05-11 08:49 | P.PN ---
Subjective Date of Service: 05/11/22 Primary Care Provider: Reji Rashid Chief Complaint: Pyelonephritis, Diverticulitis Patient lying in bed stated feeling better in general, but had a temp of 101.6 yesterday. No chills, nausea, vomiting, diarrhea, constipation, chest pain, or shortness of breath. Negative for CVA tenderness bilaterally. Physical Examination - Vital Signs Temperature: 99.3 F Blood Pressure: 132/62 Pulse: 89 Respirations: 18 Pulse Ox (%): 95 - Physical Exam General: Alert, In no apparent distress, Oriented x3 Respiratory: Clear to auscultation bilaterally Cardiovascular: No edema, Normal S1 S2 Gastrointestinal: Normal bowel sounds Musculoskeletal: No clubbing, No swelling, No tenderness Integumentary: No rashes, No breakdown Neurological: Normal speech, Normal tone, Normal affect - Studies Active Medications Acetaminophen (Acetaminophen 500 Mg Tab) 1,000 mg PO Q6H PRN PRN Reason: Pain scale 2-4 (Mild) Last Admin: 05/10/22 20:50 Dose: 1,000 mg Albuterol Sulfate (Albuterol 2.5 Mg/3 Ml Neb Estrella) 2.5 mg NEB [id number] PRN PRN Reason: SHORTNESS OF BREATH Atorvastatin Calcium (Atorvastatin 10 Mg Tab) 10 mg PO BEDTIME [facility] Last Admin: 05/10/22 20:50 Dose: 10 mg Home Med (Fluticasone/Vilanterol [Breo Ellipta 100-25 Mcg Inh]) 1 puff IH DAILY [facility] Sodium Chloride (Ns 1000 Ml Ivbag) 1,000 mls @ 75 mls/hr IV .[id number] [facility] Last Admin: 05/10/22 16:06 Dose: 1,000 mls Piperacillin Sod/Tazobactam (Sod 3.375 gm/ Sodium Chloride) 100 mls @ 25 mls/hr IV Q8HR [facility]; Protocol Last Admin: 05/11/22 00:47 Dose: 100 mls Melatonin (Melatonin 5 Mg Tablet) 10 mg PO BEDTIME PRN PRN PRN Reason: INSOMNIA Last Admin: 05/10/22 23:03 Dose: 10 mg Ondansetron HCl (Ondansetron 4 Mg/2 Ml Vial) 4 mg IV Q6HP PRN PRN Reason: NAUSEA / VOMITING Potassium Bicarbonate (Potassium 25 Meq Efferv Tab) 25 meq PO 1X ONE Stop: 05/11/22 09:01 Potassium Phos/Sodium Phos (Potass/Sodium Phosphate 1 Pkt Powd.Pack) 1 pkt PO Q1H [facility] Stop: 05/11/22 09:01 Sodium Chloride (Flush Normal Saline 10 Ml) 10 ml IV BID [facility] Last Admin: 05/10/22 21:00 Dose: 10 ml Microbiology Data (last 24 hrs): Microbiology 05/09/22 19:00 Clean Catch Urine [place] Count - Final No growth. 05/09/22 19:00 Clean Catch Urine - Final No growth. 05/09/22 16:34 Blood - Blood Aerobic Blood Culture - Preliminary Gram Neg Manny 05/09/22 16:34 Blood - Blood Blood Culture Gram Stain - Final 05/09/22 16:34 Blood - Blood Anaerobic Blood Culture - Preliminary 05/09/22 16:34 Blood - Blood Gram Stain - Final 05/09/22 16:30 Blood - Blood Aerobic Blood Culture - Preliminary No growth in 24 hours. 05/09/22 16:30 Blood - Blood Anaerobic Blood Culture - Preliminary No growth in 24 hours. Assessment And Plan - Current Problems (Diagnosis) (1) Bacteremia Plan: Cultures: - 05/09 BC: Gram Neg Rods: Pending for culture Antibiotics: - Had Ceftriaxone, Levaquin, and Flagyl - On IV Zosyn (05/09- ) Recommendations: - Continue IV Zosyn - ID will recommend antibiotics drug of choice when culture is available (2) Urinary tract infection Plan: Cultures: - 05/09 UC: No growth Antibiotics: - Had Ceftriaxone, Levaquin, and Flagyl - On IV Zosyn (05/09- ) Recommendations: - Continue IV Zosyn (bacteremia) - Plan - Bacteremia: On IV Zosyn, blood culture pending - UTI: Negative - Diverticulitis of sigmoid colon - Pyelonephritis of left kidney - Sepsis - Hyperlipidemia - Colovesical fistula - Mild protein calorie malnutrition ID will monitor the patient closely for signs of infection with fever and WBC trends Case has been discussed with Dr. Gonzalez, N Physician Review: Patient Assessed, Agree with Above Assessment and Plan
[2022-05-11] MEDS ORDERED: POTASSIUM 25 MEQ EFFERV TAB PO ONE (09:00)
[2022-05-11] MEDS: [UNRECOGNIZED DRUG - OTHER] IH SCH (09:00)
[2022-05-11] MEDS: VILANTEROL IH SCH (09:00)
[2022-05-11] MEDS: POTASS/SODIUM PHOSPHATE 1 PKT POWD.PACK PO SCH ×3 (09:15→12:37)
--- NOTE | 2022-05-11 14:37 | P.PN ---
Subjective Date of Service: 05/11/22 Primary Care Provider: Reji Rashid Chief Complaint: Pyelonephritis, Diverticulitis Patient states he feels better today. He had low-grade fever this morning. He stated his stool was watery this morning. Physical Examination - Vital Signs Temperature: 98.2 F Blood Pressure: 133/69 Pulse: 79 Respirations: 20 Pulse Ox (%): 96 - Studies Microbiology Data (last 24 hrs): 05/09/22 19:00 Clean Catch Urine [place] Count - Final No growth. 05/09/22 19:00 Clean Catch Urine - Final No growth. 05/09/22 16:34 Blood - Blood Blood Culture Gram Stain - Final 05/09/22 16:34 Blood - Blood Gram Stain - Final Assessment And Plan - Current Problems (Diagnosis) (1) Gram-negative bacteremia Current Visit: Yes Status: Acute (2) Diverticulitis of sigmoid colon Current Visit: Yes Status: Acute (3) Pyelonephritis of left kidney Current Visit: Yes Status: Acute (4) Sepsis Current Visit: Yes Status: Acute Qualifiers: Sepsis type: sepsis due to unspecified organism Sepsis acute organ dysfunction status: without acute organ dysfunction Qualified Code(s): A41.9 - Sepsis, unspecified organism (5) Colovesical fistula Current Visit: Yes Status: Chronic - Plan Physical Exam General: Alert, In no apparent distress Respiratory: Clear to auscultation bilaterally, Normal air movement Cardiovascular: Regular rate/rhythm, Normal S1 S2 Gastrointestinal: Normal bowel sounds, No tenderness, nondistended. Musculoskeletal: No tenderness Integumentary: No rashes Neurological: Normal speech, no focal motor deficit. Plan: Clinically improving, leukocytosis is improving. Continue IV Zosyn. Infectious disease is following. Awaiting blood culture organism ID and sensitivity. Clear liquid diet Continue IV fluid Monitor and optimize electrolytes. Physician Review: Patient Assessed, Agree with Above Assessment and Plan
[2022-05-11] MEDS: NA CHLORIDE 0.9% 1,000 ML IV SCH (17:31)
[2022-05-11] MEDS: ATORVASTATIN 10 MG TAB PO SCH (20:52)
[2022-05-11] MEDS: MELATONIN 5 MG TABLET PO PRN (20:52)
[2022-05-12] MEDS: PIPER TAZO 3.375 GM in NA CHLORIDE 0.9% 100 ML IV SCH ×2 (01:14→08:31)
[2022-05-12 06:18] LABS: Absolute Lymphocytes (CBC) 2.2 K/uL (0.7-4.9); Hematocrit 33.6 % (39.6-49.0); Lymphocytes % 20.1 % (15.3-44.8); MCV 87.5 fL (80-100); MPV 6.7 fL (7.6-11.3); RBC Red Blood Cell Count 3.84 M/uL (4.33-5.43)
[2022-05-12 06:29] LABS: Phosphorus 3.2 mg/dL (2.5-4.9); Potassium 3.7 mEq/L (3.5-5.1)
[2022-05-12 08:27] VITALS: TEMP 98.2
[2022-05-12] MEDS: NA CHLORIDE 0.9% 1,000 ML IV SCH (08:31)
[2022-05-12] MEDS: VILANTEROL IH SCH (08:32)
[2022-05-12] MEDS: [UNRECOGNIZED DRUG - OTHER] IH SCH (08:32)
[2022-05-12] MEDS ORDERED: POTASSIUM CL SA 10 MEQ TAB PO ONE (09:00)
[2022-05-12 12:49] VITALS: BP 119/71
--- NOTE | 2022-05-12 12:51 | P.DS ---
Admission Date: 05/09/22 Discharge Date: 05/12/22 Primary Care Provider: Reji Rashid Disposition: ROUTINE DISCHARGE Discharge Condition: FAIR Reason for Admission: Pyelonephritis, Diverticulitis - Problems (1) Gram-negative bacteremia Current Visit: Yes Status: Acute (2) Diverticulitis of sigmoid colon Current Visit: Yes Status: Acute (3) Pyelonephritis of left kidney Current Visit: Yes Status: Acute (4) Sepsis Current Visit: Yes Status: Acute Qualifiers: Sepsis type: sepsis due to unspecified organism Sepsis acute organ dysfunction status: without acute organ dysfunction Qualified Code(s): A41.9 - Sepsis, unspecified organism (5) Colovesical fistula Current Visit: Yes Status: Chronic Brief History of Present Illness: Patient is a 62-year-old male with past medical history of asthma, hyperlipidemia, and colovesical fistula who presented to the emergency department via EMS with complaints of abdominal pain, nausea, fever, UTI symptoms, decreased appetite for 1 week. He was found to have a sodium of 129, creatinine 1.32, WBC 20 with left shift, 84 segs, 4 bands, T. bili 1.4, lactate WNL. Urine extremely turbid with LE, RBC, WBC, blood. CT abdomen pelvis showed "Left-sided pyelonephritis findings are present without abscess. Short-segment inflammation was also seen involving the sigmoid colon in the pelvis. This may be acute diverticulitis. Given that malignancy can have a similar appearance, direct visualization follow-up colonoscopy is recommended." He was given Rocephin, Flagyl, Levaquin, and IV fluids in the emergency department. Patient admitted for further management. Hospital Course: Patient admitted to the medical floor and treated with aggressive antibiotics. His blood culture grew pansensitive E. coli. Urine culture showed no growth. He experienced intermittent fever. Patient clinically improved with treatment. Abdominal pain and back pain resolved. He has tolerated solid diet. No fever for 48 hours. Patient seen by infectious disease Dr. Gonzalez who at this point recommend oral antibiotics. Patient is clinically stable. He is discharged with 2 weeks of oral Cipro. He is informed to follow-up with GI Dr. Saxena as an outpatient within 4 to 6 weeks to evaluate him for colonoscopy. Vital Signs/Physical Exam: Temp Pulse Resp BP Pulse Ox 98.2 F 75 18 145/69 H 98 05/12/22 08:00 05/12/22 08:00 05/12/22 08:00 05/12/22 08:00 05/12/22 08:00 General: Alert, In no apparent distress, Oriented x3 HEENT: Mucous membr. moist/pink Neck: JVD not distended Respiratory: Clear to auscultation bilaterally, Normal air movement Cardiovascular: Regular rate/rhythm Gastrointestinal: Normal bowel sounds, Soft and benign, Non-distended Musculoskeletal: No swelling Laboratory Data at Discharge: WBC 11.00 thou/uL (4.3-10.9) H 05/12/22 06:01 Hgb 11.4 g/dL (13.6-17.9) L 05/12/22 06:01 Hct 33.6 % (39.6-49.0) L 05/12/22 06:01 Plt Count 255 thou/uL (152-406) 05/12/22 06:01 PT 14.3 SECONDS (9.5-12.5) H 05/09/22 16:34 INR 1.30 05/09/22 16:34 Sodium 138 mEq/L (136-145) 05/12/22 06:01 Potassium 3.7 mEq/L (3.5-5.1) 05/12/22 06:01 BUN 8 mg/dL (7-18) 05/12/22 06:01 Creatinine 0.89 mg/dL (0.70-1.30) 05/12/22 06:01 Glucose 101 mg/dL (74-106) 05/12/22 06:01 Phosphorus 3.2 mg/dL (2.5-4.9) 05/12/22 06:01 Magnesium 2.1 mg/dL (1.6-2.4) 05/10/22 03:40 Total Bilirubin 1.4 mg/dL (0.2-1.0) H 05/09/22 16:34 AST 21 U/L (15-37) 05/09/22 16:34 ALT 34 U/L (16-61) 05/09/22 16:34 Alkaline Phosphatase 88 U/L (45-117) 05/09/22 16:34 Triglycerides 57 mg/dL (<150) 05/10/22 03:40 Cholesterol 114 mg/dL (<200) 05/10/22 03:40 HDL Cholesterol 33 mg/dL (40-60) L 05/10/22 03:40 Cholesterol/HDL Ratio 3.45 05/10/22 03:40 Lipase 15 U/L (13-75) 05/09/22 16:34 Home Medications: Fluticasone/Vilanterol [Breo Ellipta 100-25 Mcg INH] 1 puff IH DAILY 01/05/20 Simvastatin 1 tab PO BEDTIME 01/05/20 Albuterol [Proventil] 2 puff IH PRN PRN 05/09/22 Ciprofloxacin HCl [Cipro] 500 mg PO BID #28 tab 05/12/22 New Medications: Ciprofloxacin HCl [Cipro] 500 mg PO BID #28 tab Physician Discharge Instructions: GI soft diet Diet: GI soft Activity: Ad noe Followup: NONE,NONE [Primary Care Provider] - Charles Saxena MD [ACTIVE - CAN ADMIT] - (Within 1 month. You will need colonoscopy to further evaluate your large bowel to make sure you dont't have cancer.) Time spent managing pt's care (in minutes): 38
--- NOTE | 2022-05-12 14:58 | P.PN ---
Subjective Date of Service: 05/12/22 Primary Care Provider: Reji Rashid Chief Complaint: Pyelonephritis, Diverticulitis Patient sitting up in bed. No complaints. Physical Examination - Vital Signs Temperature: 98.2 F Blood Pressure: 119/71 Pulse: 71 Respirations: 18 Pulse Ox (%): 98 - Physical Exam General: Alert, In no apparent distress, Oriented x3 HEENT: Atraumatic, Normocephalic Neck: Supple, JVD not distended Respiratory: Clear to auscultation bilaterally Cardiovascular: No edema, Normal S1 S2 Gastrointestinal: Normal bowel sounds, No ascites, No tenderness, No masses, No rebound, No guarding Musculoskeletal: No clubbing, No swelling Integumentary: No rashes, No breakdown Neurological: Normal gait - Studies Labs reviewed Microbiology Data (last 24 hrs): 05/09/22 16:34 Blood - Blood Aerobic Blood Culture - Final Gram Neg Manny Escherichia Coli 05/09/22 16:34 Blood - Blood Blood Culture Gram Stain - Final 05/09/22 16:34 Blood - Blood Anaerobic Blood Culture - Final Escherichia Coli 05/09/22 16:34 Blood - Blood Gram Stain - Final Medications List Reviewed: Yes Assessment And Plan - Plan Assessment And Plan - Current Problems (Diagnosis) (1) Bacteremia Plan: Cultures: - 05/09 BC: Gram Neg Rods: e.coli Recommendations: - d/c IV zosyn - change to PO ciprofloxacin for discharge - Bacteremia - UTI: Negative - Diverticulitis of sigmoid colon - Pyelonephritis of left kidney - Sepsis - Hyperlipidemia - Colovesical fistula - Mild protein calorie malnutrition ID will monitor the patient closely for signs of infection with fever and WBC trends Case has been discussed with Dr. Gonzalez, N Physician Review: Patient Assessed, Agree with Above Assessment and Plan Physician Review: Patient Assessed, Agree with Above Assessment and Plan
== END 2022-05-12 14:29 | disposition home or self-care (01) | DRG 872 ==
LOC: ER 15:34 → ERHOLD 19:21 → 2ND 20:10
PROVIDERS: ADMIT Internal Medicine; ATTEND Internal Medicine
DX: A41.51 Sepsis due to Escherichia coli [E. coli] (principal); N10 Acute pyelonephritis; E87.1 Hypo-osmolality and hyponatremia; N41.0 Acute prostatitis; K57.32 Diverticulitis of large intestine without perforation or abscess without bleeding; N32.1 Vesicointestinal fistula; E44.1 Mild protein-calorie malnutrition; J45.909 Unspecified asthma, uncomplicated; E78.00 Pure hypercholesterolemia, unspecified; F17.200 Nicotine dependence, unspecified, uncomplicated; Z68.28 Body mass index [BMI] 28.0-28.9, adult; Z79.899 Other long term (current) drug therapy; Z20.822 Contact with and (suspected) exposure to COVID-19
CPT/HCPCS: 36415; 71045; 74176; 76377; 80048; 80061; 80076; 81001; 83605; 83690; 83735; 83880; 84100; 84132; 84443; 84484; 85025; 85610; 87040; 87077; 87086; 87088; 87186; 87205; 87811; 93005; 96361; 96365; 96367; 99285; J0696; J2543; J7030

== ENCOUNTER 2022-07-19 11:12 | Emergency (ER) | payer BC ==
--- OUTSIDE RECORDS SUMMARY | 2022-07-19 11:16 | XMS REPORT | Continuity of Care Document ---
:1960 Author Organization [facility] t Address [address] [facility] [address] [place] [address] Care Team Providers Name Role Phone Hemanth Santizo Attending Clinician Unavailable Payers Payer Name Policy Type Policy Number Effective Date Expiration Date S ource Blue Cross and C1 [id number] Common S [facility] Problems Condition Condition Condition Status Onset Resolution Last Treating Co mments Source Name Details Category Date Date Treatment Clinician Date [id number] [place] Problem Active Com mon l fistula [facility] Pyelonephr Pyelonephr Problem Active C ommon itis itis [facility] [id number] Environmen Problem Active Co mmon aleks [facility] allergies [facility] [id number] Asthma, Problem Active Commo n unspecifie [facility] d asthma - [facility] severity, St unspecifie [facility] d whether Medical complicate Center d, unspecifie d whether persistent Allergies, Adverse Reactions, Alerts This patient has no known allergies or adverse reactions. Social History Social Habit Start Date Stop Date Quantity Comments Source History of Tobacco Use Co mmon [facility] Sex Assigned At Com mon [facility] Smoking Status Start Date Stop Date Source Former Smoker 2020-02-05 00:00:00 2020-02-05 00:00:00 Common S [facility] Medications Ordered Filled Start Stop Current Ordering Indication Dosage Frequency Signature Comments Components Source Medication Medication Date Date Medication? Clinician (SIG) Name Name Flonase 50 Flonase 50 2019-0 No QD Flonase 50 MCG/ACT MCG/ACT 4-01 MCG/ACT 00:00: 00 PredniSONE PredniSONE 2019-0 No 1{table BID PredniSONE 10 MG 10 MG 4-01 t} 10 MG 00:00: 00 Azithromyci Azithromyci No QD Azithromyc n 250 MG n 250 MG 05-20 in 250 MG 00:00: 00 Flonase 50 Flonase 50 No QD Flonase 50 MCG/ACT MCG/ACT 05-20 MCG/ACT 00:00: 00 Azithromyci Azithromyci No QD Azithromyc n 250 MG n 250 MG 05-20 in 250 MG 00:00: 00 PredniSONE PredniSONE No 1{table BID PredniSONE 10 MG 10 MG 05-20 t} 10 MG 00:00: 00 Flonase 50 Flonase 50 No QD Flonase 50 MCG/ACT MCG/ACT 05-20 MCG/ACT 00:00: 00 Azithromyci Azithromyci No QD Azithromyc n 250 MG n 250 MG 05-20 in 250 MG 00:00: 00 PredniSONE PredniSONE No 1{table BID PredniSONE 10 MG 10 MG 05-20 t} 10 MG 00:00: 00 Flagyl 500 Flagyl 500 No 1{table TID Flagyl 500 MG MG t} MG Breo Breo No Breo Ellipta Ellipta Ellipta Simvastatin Simvastatin No 1{table QD Simvastati 20 MG 20 MG t_in_th n 20 MG e_eveni ng} Tylenol # 3 Tylenol # 3 No Tylenol # 300/30mg 300/30mg 3 300/30mg Ondansetron Ondansetron No 1{table QD Ondansetro 4 MG 4 MG t_on_th n 4 MG e_tongu e_and_a llow_to _dissol ve} Ondansetron Ondansetron No 1{table QD Ondansetro 4 MG 4 MG t_on_th n 4 MG e_tongu e_and_a llow_to _dissol ve} Tylenol # 3 Tylenol # 3 No Tylenol # 300/30mg 300/30mg 3 300/30mg Simvastatin Simvastatin No 1{table QD Simvastati 20 MG 20 MG t_in_th n 20 MG e_eveni ng} Flagyl 500 Flagyl 500 No 1{table TID Flagyl 500 MG MG t} MG Breo Breo No Breo Ellipta Ellipta Ellipta Ondansetron Ondansetron No 1{table QD Ondansetro 4 MG 4 MG t_on n 4 MG e_tongu e_and_a llow_to _dissol ve} Tylenol # 3 Tylenol # 3 No Tylenol # 300/30mg 300/30mg 3 300/30mg Simvastatin Simvastatin No 1{table QD Simvastati 20 MG 20 MG t_in n 20 MG e_eveni ng} Flagyl 500 Flagyl 500 No 1{table TID Flagyl 500 MG MG t} MG Breo Breo No Breo Ellipta Ellipta Ellipta Immunizations Ordered Immunization Filled Immunization Date Status Commen ts Source Name Name Landry Alatorre 2018-05-20 Completed [facility] (Triamcin[facility]one) (Triamcinolone) 13:38:00 [facility] Landry Alatorre 2018-05-20 Completed [facility] (Triamcinolone) (Triamcinolone) 13:38:00 [facility] Vital Signs Vital Name Observation Time Observation Value Comments Source height 2020-02-05 13:30:00 67 [in_i] [facility] weight 2020-02-05 13:30:00 188.2 [lb_av] [facility] temperature 2020-02-05 13:30:00 98.1 [degF] [facility] bmi 2020-02-05 13:30:00 29.47 kg/m2 [facility] oximetry 2020-02-05 13:30:00 97 % [facility] blood pressure 2020-02-05 13:30:00 140 mm[Hg] [facility] blood pressure 2020-02-05 13:30:00 70 mm[Hg] [facility] diastolic [facility] height 2020-01-14 14:30:00 67 [in_i] Common [facility] weight 2020-01-14 14:30:00 191.8 [lb_av] Common [facility] temperature 2020-01-14 14:30:00 97.2 [degF] [facility] bmi 2020-01-14 14:30:00 30.04 kg/m2 [facility] oximetry 2020-01-14 14:30:00 97 % [facility] blood pressure 2020-01-14 14:30:00 136 mm[Hg] Common [facility] - systolic [facility] blood pressure 2020-01-14 14:30:00 71 mm[Hg] Common [facility] diastolic [facility] Procedures This patient has no known procedures. Encounters Start End Encounter Admission Attending Care Care Encounter Source Date/Time Date/Time Type Type Clinicians Facility Department ID 2021-03-16 Outpatient Santizo, STLMLC STLMLC [id number] Common 12:25:16 Hemanth [id number] [facility] 2021-03-16 Outpatient Santizo, STLMLC STLMLC [id number] Common 12:08:30 Hemanth [id number] [facility] 2020-03-09 2020-03-09 (TEL) STLMLC STLMLC [id number] Co mmon 00:00:00 00:00:00 [facility] 2020-02-05 2020-02-05 OFFICE STLMLC STLMLC [id number] Co mmon 00:00:00 00:00:00 [facility]AB PT - [facility] LEVEL 2 [facility] 2020-01-14 2020-01-14 OFFICE STLMLC STLMLC [id number] Co mmon 00:00:00 00:00:00 VISIT NEW Spir it PT LEVEL 3 - [facility] Results This patient has no known results.
[2022-07-19] MEDS ORDERED: MORPHINE 4 MG/ML SYR ONE (13:28)
[2022-07-19] MEDS ORDERED: NA CHLORIDE 0.9% 1,000 ML ONE (13:29)
[2022-07-19] MEDS ORDERED: ONDANSETRON 4 MG/2 ML VIAL ONE (13:29)
[2022-07-19 13:33] LABS: Specific Gravity 1.022 (1.005-1.030); Urine Bacteria None Seen /HPF (<20); Urine Bilirubin NEGATIVE (Negative); Urine Blood 2+ (Negative); Urine Clarity Clear (Clear); Urine Color Light-Yellow (Yellow); Urine Glucose NEGATIVE (Negative); Urine Mucus Slight /HPF (None Seen); Urine Protein 1+ (Negative); Urine RBC >50 /HPF (None Seen); Urine Urobilinogen Normal (Normal)
[2022-07-19 14:09] LABS: Absolute Lymphocytes (CBC) 1.1 K/uL (0.7-4.9); Hematocrit 38.9 % (39.6-49.0); Lymphocytes % 8.1 % (15.3-44.8); MCV 87.3 fL (80-100); MPV 6.6 fL (7.6-11.3); RBC Red Blood Cell Count 4.45 M/uL (4.33-5.43)
[2022-07-19 14:20] LABS: Albumin 3.7 g/dL (3.4-5.0); Bilirubin Total 0.5 mg/dL (0.2-1.0); Protein, Total 8.6 g/dL (6.4-8.2)
--- NOTE | 2022-07-19 14:58 | RAD REPORT ---
EXAM DESCRIPTION: CT - Abdomen Pelvis W Contrast - 07/19/2022 2:36 pm CLINICAL HISTORY: LLQ abd pain, diverticulitis, fistula COMPARISON: Abdomen Pelvis W Contrast dated 11/12/2020; Abdomen Pelvis W Contrast dated 09/26/2020; Abdomen Pelvis W Contrast dated 01/05/2020; Abdomen Pelvis W Contrast dated 03/01/2019; Stone Pro tocol dated 05/09/2022 TECHNIQUE: Thin cut axial CT imaging of the abdomen and pelvis was performed following intravenous a dministration of 67 mL Isovue 300. Multiplanar reformats were generated and reviewed. All CT scans are performed using dose optimization technique as appropriate and may include automated exposure control or mA/KV adjustment according to patient size. FINDINGS: No suspicious findings in the lung bases. The liver, spleen, and pancreas show no suspicious findings. Gallbladder and biliary tree are also wi thout suspicious finding. Symmetric renal function is seen with no hydronephrosis or suspicious renal mass. Short segment of wall thickening along the mid sigmoid colon with adjacent fat stranding. An ill-defi rayo ovoid region of soft tissue density is present just superior to the involved segment, slightly mo re closely related to the left pelvic sidewall than the right, measuring 4.2 x 2.9 centimeter in grea test axial dimensions ill-defined tract like soft tissue density extending from the involved sigmoid segment to this abnormality (see coronal image 59/125). Another tract like soft tissue thickening ext ends from the inferior wall of the involved sigmoid segment to the dome of the bladder, see coronal i mage 55-125, which appears stable compared to the most recent CT of 05/09/2022. No gas opacification of the soft tissue abnormalities. The appendix is visualized, and normal in appearance No hernia, mas s or bulky lymphadenopathy. The urinary bladder is suboptimally distended, with mild wall thickening along the dome. No suspicious bony findings. IMPRESSION: Mid sigmoid diverticulitis with a 4.2 centimeter phlegmon just superior to the involved segment. Tract like soft tissue thickening extending from the superior sigmoid wall to the region of phlegmon, and from the inferior sigmoid wall to the bladder dome. Findings raise concern for facial us, althou gh currently there is no gas opacification of these tract like abnormalities. The findings were communicated to Boaz Hoffman on 07/19/2022 at 14:51 hours.
--- NOTE | 2022-07-19 15:11 | EDPHYS ---
Physician Documentation [facility] Name: Pancho Fischer Age: 62 yrs Sex: Male : 1960 Arrival Date: 07/19/2022 Time: 11:12 Bed 13 Private MD: Hemanth Santizo E ED Physician Boaz Hoffman HPI: 07/19 12:30 This 62 yrs old Male presents to ER via Ambulatory with complaints of Abdominal Pain - rn lower. 12:30 The patient presents with abdominal pain in the left lower quadrant. Onset: The rn symptoms/episode began/occurred 2 day(s) ago. The symptoms do not radiate. Associated signs and symptoms: Pertinent negatives: blood in stools, constipation, diarrhea, fever. The symptoms are described as crampy, intermittent. Modifying factors: The symptoms are alleviated by nothing, the symptoms are aggravated by touching the area. Severity of pain: At its worst the pain was moderate in the emergency department the pain is unchanged. The patient has experienced similar episodes in the past. The patient has been recently seen by a physician:. Pt reports LLQ abd pain for a few days, diagnosed with diverticulitis and UTI a few weeks ago and completed abx, feels maybe didn't completely resolved. No fever. . Historical: - Allergies: 15:31 No Known Allergies; ko1 - Home Meds: 15:31 Breo Ellipta 100-25 mcg/dose inhalation dsdv 1 puff as needed [Active]; ko1 - PMHx: 15:31 Asthma; High Cholesterol; sinus infection; Diverticulitis; ko1 - Immunization history:: Adult Immunizations up to date. - Family history:: not pertinent. - Social history:: Smoking status: Patient denies any tobacco usage or history of. - Hospitalizations: : No recent hospitalization is reported. ROS: 13:30 Constitutional: Negative for fever, chills, and weight loss, Cardiovascular: Negative rn for chest pain, palpitations, and edema, Respiratory: Negative for shortness of breath, cough, wheezing, and pleuritic chest pain, Abdomen/GI: + LLQ and suprapubic abd pain, no blood in stool MS/Extremity: Negative for injury and deformity, Skin: Negative for injury, rash, and discoloration, Neuro: Negative for headache, weakness, numbness, tingling, and seizure. Exam: 13:30 Constitutional: This is a well developed, well nourished patient who is awake, alert, rn and in no acute distress. Head/Face: Normocephalic, atraumatic. Cardiovascular: Tachycardic, regular Respiratory: No increased work of breathing, no retractions or nasal flaring. Abdomen/GI: soft, + LLQ tenderness, no rebound Skin: Warm, dry MS/ Extremity: Pulses equal, no cyanosis. Neuro: Awake and alert, GCS 15 Vital Signs: 11:34 BP 142 / 69; Pulse 107; Resp 17; Temp 99.7; Pulse Ox 94% on R/A; iw 14:30 BP 136 / 68; Pulse 98; Resp 16; Pulse Ox 96% on R/A; ko1 MDM: 11:28 Patient medically screened. rn 15:09 Differential diagnosis: bowel obstruction, diverticulitis, non-specific abd pain, rn Ureterolithiasis, perforation, abscess, fistula. Data reviewed: vital signs, nurses notes, lab test result(s), radiologic studies, CT scan, and as a result, I will admit patient. Consideration of Admission/Observation Patient was admitted/placed on observation. Counseling: I had a detailed discussion with the patient and/or guardian regarding: the historical points, exam findings, and any diagnostic results supporting the discharge/admit diagnosis, lab results, radiology results, the need to transfer to another facility, for higher level of care, [facility] does not immediately have the required specialist. Response to treatment: the patient's symptoms have mildly improved after treatment, and as a result, I will admit patient. ED course: Pt with perforated diverticulitis, phlegmon, also with colovesicular fistula, will have to transfer for colorectal consultation and possibly surgery.. 15:48 ED course: [facility] at capacity, did not answer their phone again, tried [facility], accepted rn for transfer to [facility]. . 07/19 11:44 Order name: CBC with Diff rn 07/19 11:44 Order name: CMP; Complete Time: 15:02 rn 07/19 11:44 Order name: Lipase; Complete Time: 15:02 rn 07/19 11:44 Order name: Urinalysis w/ reflexes; Complete Time: 13:55 rn 07/19 13:38 Order name: Urine Culture EDUT 07/19 11:44 Order name: CT Abd/Pelvis - IV Contrast Only; Complete Time: 15:02 rn 07/19 11:44 Order name: IV Saline Lock; Complete Time: 13:13 rn 07/19 11:44 Order name: Labs collected and sent; Complete Time: 13:13 rn Administered Medications: 13:20 Drug: NS 0.9% IV 1000 ml Route: IV; Rate: 1 bolus; Site: left antecubital; kb3 13:20 Drug: Ondansetron IVP 4 mg Route: IVP; Site: left antecubital; kb3 13:20 Drug: morphine IVP or IV 4 mg Route: IVP; Infused Over: 4 mins; Site: left antecubital; kb3 15:19 Drug: Piperacillin-Tazobactam IVPB 3.375 grams Route: IVPB; Infused Over: 60 mins; ko1 Site: left antecubital; 15:56 Follow up: Response: No adverse reaction; IV Status: Completed infusion; IV Intake: ko1 100ml Disposition Summary: 07/19/22 15:11 Transfer Ordered Reason: Higher level of care rn Condition: Stable rn Problem: new rn Symptoms: have improved vehicle [facility] 15[facility]48[facility] rn Accepting Physician: (07/19/22 17:34) dimitri Diagnosis - Diverticulitis of large intestine with perforation and abscess without bleeding rn - Fistula of intestine rn Forms: - Medication Reconciliation Form rn - SBAR form rn Signatures: Dispatcher [employer] [facility] Boaz Hoffman MD MD rn Bradberry, Kelly RN RN kb3 Viky Carrero RN RN ko1 Corrections: (The following items were deleted from the chart) 15:48 15:11 rn rn 15:48 15:11 [facility] rn rn 17:34 15:48 Dr. luis carlos [email or web address]
--- NOTE | 2022-07-19 15:11 | ER ---
Nurse's Notes [facility] Name: Pancho Fischer Age: 62 yrs Sex: Male : 1960 Arrival Date: 07/19/2022 Time: 11:12 Bed 13 Private MD: Hemanth Santizo E Diagnosis: Diverticulitis of large intestine with perforation and abscess without bleeding;Fistula of intestine Presentation: 07/19 11:34 Chief complaint: Patient states: diverticulitis with a pain level of 5. pt also C/O iw having no energy to move on threw the day. last bowl movement was this morning. Coronavirus screen: Vaccine status: Patient reports being unvaccinated. Client denies travel out of the [place] in the last 14 days. 11:34 Method Of Arrival: Ambulatory iw 11:47 Ebola Screen: Patient negative for fever greater than or equal to 101.5 degrees iw Fahrenheit, and additional compatible Ebola Virus Disease symptoms Patient denies exposure to infectious person. Patient denies travel to an Ebola-affected area in the 21 days before illness onset. No symptoms or risks identified at this time. Initial Sepsis Screen: Does the patient meet any 2 criteria? No. Patient's initial sepsis screen is negative. Does the patient have a suspected source of infection? No. Patient's initial sepsis screen is negative. Risk Assessment: Do you want to hurt yourself or someone else? Patient reports no desire to harm self or others. 11:47 Acuity: MELI 3 iw Historical: - Allergies: 15:31 No Known Allergies; ko1 - Home Meds: 15:31 Breo Ellipta 100-25 mcg/dose inhalation dsdv 1 puff as needed [Active]; ko1 - PMHx: 15:31 Asthma; High Cholesterol; sinus infection; Diverticulitis; ko1 - Immunization history:: Adult Immunizations up to date. - Family history:: not pertinent. - Social history:: Smoking status: Patient denies any tobacco usage or history of. - Hospitalizations: : No recent hospitalization is reported. Screenin:31 [facility] ED Fall Risk Assessment (Adult) History of falling in the last 3 months, ko1 including since admission No falls in past 3 months (0 pts) Confusion or Disorientation No (0 pts) Intoxicated or Sedated No (0 pts) Impaired Gait No (0 pts) Mobility Assist Device Used No (0 pt) Altered Elimination No (0 pt) Score/Fall Risk Level 0 - 2 = Low Risk Oriented to surroundings, Maintained a safe environment, Educated pt \T\ family on fall prevention, incl call for assistance when getting out of bed, Assessed \T\ reinforced patient's understanding of fall precautions, Provided non-skid footwear, Hourly rounding (assess needs \T\ fall precautionary measures) done, Used ambulatory aids as needed (educated on \T\ assisted with), Used gait belt as appropriate. Abuse screen: Denies threats or abuse. Denies injuries from another. Nutritional screening: No deficits noted. Tuberculosis screening: No symptoms or risk factors identified. Assessment: 15:00 General: Appears in no apparent distress. comfortable, Behavior is calm, cooperative, ko1 appropriate for age. Pain: Complains of pain in abdomen. Neuro: No deficits noted. Cardiovascular: No deficits noted. Respiratory: No deficits noted. GI: Bowel sounds present X 4 quads. Abd is soft and non tender. : No deficits noted. EENT: No deficits noted. Derm: No deficits noted. Musculoskeletal: No deficits noted. Vital Signs: 11:34 BP 142 / 69; Pulse 107; Resp 17; Temp 99.7; Pulse Ox 94% on R/A; iw 14:30 BP 136 / 68; Pulse 98; Resp 16; Pulse Ox 96% on R/A; ko1 ED Course: 11:13 Patient arrived in ED. am2 11:14 Hemanth Santizo MD is Private Physician. am2 11:28 Boaz Hoffman MD is Attending Physician. rn 11:48 Triage completed. iw 12:55 Urinalysis w/ reflexes Sent. iw 13:13 CBC with Diff Sent. kb3 13:13 CMP Sent. kb3 13:13 Lipase Sent. kb3 13:13 Urinalysis w/ reflexes Sent. kb3 13:16 Inserted saline lock: 20 gauge in left antecubital area, using aseptic technique. Blood zm collected. 14:37 Viky Carrero, RN is Primary Nurse. ko1 14:39 CT Abd/Pelvis - IV Contrast Only In Process Unspecified. EDMS 15:24 initiated transfer to [facility]. bd 15:31 No provider procedures requiring assistance completed. ko1 15:31 Patient has correct armband on for positive identification. Placed in gown. Bed in low ko1 position. Call light in reach. Pulse ox on. NIBP on. Door closed. Noise minimized. Lights dimmed. 17:30 Patient transferred, IV remains in place. ko1 Administered Medications: 13:20 Drug: NS 0.9% IV 1000 ml Route: IV; Rate: 1 bolus; Site: left antecubital; kb3 13:20 Drug: Ondansetron IVP 4 mg Route: IVP; Site: left antecubital; kb3 13:20 Drug: morphine IVP or IV 4 mg Route: IVP; Infused Over: 4 mins; Site: left antecubital; kb3 15:19 Drug: Piperacillin-Tazobactam IVPB 3.375 grams Route: IVPB; Infused Over: 60 mins; ko1 Site: left antecubital; 15:56 Follow up: Response: No adverse reaction; IV Status: Completed infusion; IV Intake: ko1 100ml Medication: 15:31 VIS not applicable for this client. ko1 Intake: 15:56 IV: 100ml; Total: 100ml. ko1 Outcome: 15:11 ER care complete, transfer ordered by . rn 17:30 Transferred by ground EMS [facility]. to [facility], ko1 Transfer form completed. X-rays sent w/ patient. 17:30 Condition: stable 17:30 Discharge instructions given to EMS, Instructed on the need for transfer, Demonstrated understanding of instructions. 17:34 Patient left the ED. ko1 Signatures: Dispatcher [employer] EDMS Giselle Enrique Irene, RN Boaz Nettles MD MD rn Moreno, Amanda am2 Martinez, Zaina zm Bradberry, Kelly, SAMMI RN kb3 Viky Carrero, SAMMI RN ko1
[2022-07-19] MEDS ORDERED: NA CHLORIDE 0.9% 100 ML ONE (15:20)
[2022-07-19] MEDS ORDERED: PIPERACIL/TAZO 3.375 GM VIAL IV ONE (15:21)
[2022-07-19 17:51] VITALS: TEMP 99.7
[2022-07-19 17:56] VITALS: BP 136/68; O2SAT 96
[2022-07-19 21:19] LABS: Blood Morphology Comment NOT SEEN (NOT SEEN); Platelet Estimate ADEQ; White Blood Cell Scan OK (OK)
== END 2022-07-19 17:34 | disposition short-term general hospital (02) ==
LOC: ER 11:12
DX: K57.20 Diverticulitis of large intestine with perforation and abscess without bleeding (principal); K63.2 Fistula of intestine; E78.00 Pure hypercholesterolemia, unspecified
CPT/HCPCS: 96365; 87088; 85025; 81001; 87086; 36415; 83690; 80053; 74177; 96375; 99285; Q9967; J2543; J2405; J7030